=== PATIENT | male | born 1970 | race Caucasian/White ===

== ENCOUNTER 2022-12-18 10:56 | Outpatient (OUT) | payer MEDICAID, SELFPAY | END 2022-12-18 10:57 | LOC: WC 10:56 | PROVIDERS: PCP Family Medicine; Visit Provider Podiatrist Foot & Ankle Surgery | DX: T87.89 Other complications of amputation stump (principal) | CPT/HCPCS: 99212; G0463 ==

== ENCOUNTER 2022-12-24 11:28 | Outpatient (OUT) | payer MEDICAID, SELFPAY | END 2022-12-24 11:29 | LOC: WC 11:28 | PROVIDERS: PCP Family Medicine; Visit Provider Podiatrist Foot & Ankle Surgery | DX: T87.89 Other complications of amputation stump (principal) | CPT/HCPCS: 99212; A6213; G0463 ==

== ENCOUNTER 2023-01-15 10:54 | Outpatient (OUT) | payer MEDICAID, SELFPAY ==
--- NOTE | 2023-01-15 11:09 | XR_ITS ---
The [address] [address] Patient Name: FELISHA HAWKINS MRN: [id number] date: 1970 Sex: M Assigned Patient Location: Current Patient Location: Accession/Order Number: [id number] Exam Date: 01/15/2023 11:09 Report Date: 01/15/2023 14:33 At the request of: RODNEY PEREZ Procedure: XR foot LT min 3V EXAM: XR foot LT min 3V HISTORY: LEFT FOOT PAIN COMPARISON: 12/02/2022. TECHNIQUE: 3 views left foot. 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 There is overlying residual mild edema. New periosteal reaction and ill-defined margin of the stump raises concern for osteomyelitis. There is also interval destruction of second metatarsal head, third metatarsal head and third proximal phalanx base and the fourth proximal phalanx base concerning for osteomyelitis. In particular there is collapse and pathologic fracture of the second metatarsal head and neck region and the third proximal phalanx base. There is interval albeit subacute appearing deformity at the second metatarsal base, TMT joint. No other acute bony process. Moderate to severe degenerative change of the midfoot may be increased with slight increased pes planus. No radiopaque foreign body. IMPRESSION: Concern for interval multifocal osteomyelitis with bone destruction. Also new but subacute appearing deformity at the second TMT joint. Recommend MRI of the left midfoot, forefoot and digits. Electronically authenticated by: BRIAN ROWAN Date: 01/15/2023 14:33
== END 2023-01-15 10:55 | disposition home or self-care (01) ==
LOC: WC 10:54
PROVIDERS: PCP Family Medicine; Visit Provider Podiatrist Foot & Ankle Surgery
DX: M79.672 Pain in left foot (principal); M21.6X2 Other acquired deformities of left foot; M86.472 Chronic osteomyelitis with draining sinus, left ankle and foot; S90.822A Blister (nonthermal), left foot, initial encounter; E11.621 Type 2 diabetes mellitus with foot ulcer; E11.40 Type 2 diabetes mellitus with diabetic neuropathy, unspecified; E11.69 Type 2 diabetes mellitus with other specified complication
CPT/HCPCS: 73630; G0463

== ENCOUNTER 2023-02-09 13:29 | Outpatient (OUT) | payer MEDICAID, SELFPAY ==
--- NOTE | 2023-02-09 13:31 | XR_ITS ---
The [address] [address] Patient Name: FELISHA HAWKINS MRN: [id number] date: 1970 Sex: M Assigned Patient Location: Current Patient Location: Accession/Order Number: [id number] Exam Date: 02/09/2023 13:31 Report Date: 02/09/2023 18:42 At the request of: RODNEY PEREZ Procedure: XR foot LT min 3V PROCEDURE: XR foot LT min 3V COMPARISON: 01/15/2023 HISTORY: LEFT FOOT PAIN FINDINGS: BONES:Stable amputation proximal diaphysis of the first metatarsal. Change in appearance of the base of the second and third metatarsals suspicious for fracture. Lytic change with periosteal reaction head of the second metatarsal. Lytic changes head of the third metatarsal and base of the third and fourth proximal phalanges. SOFT TISSUES:Diffuse soft tissue swelling EFFUSION:None visible. OTHER: Negative. XR/XR foot LT min 3V IMPRESSION: Lytic changes and fractures of multiple bones as detailed above. Post traumatic change versus osteomyelitis, clinically correlate Electronically authenticated by: KYE MCINTOSH Date: 02/09/2023 18:42
== END 2023-02-09 13:30 | disposition home or self-care (01) ==
LOC: WC 13:29
PROVIDERS: PCP Family Medicine; Visit Provider Podiatrist Foot & Ankle Surgery
DX: M79.672 Pain in left foot (principal); T87.89 Other complications of amputation stump; S92.322A Displaced fracture of second metatarsal bone, left foot, initial encounter for closed fracture; S92.512A Displaced fracture of proximal phalanx of left lesser toe(s), initial encounter for closed fracture
CPT/HCPCS: 73630; G0463

== ENCOUNTER 2023-05-11 09:18 | Outpatient (OUT) | payer MEDICAID, SELFPAY ==
--- NOTE | 2023-05-11 09:28 | XR_ITS ---
The [address] [address] Patient Name: FELISHA HAWKINS MRN: [id number] date: 1970 Sex: M Assigned Patient Location: LAB Current Patient Location: Accession/Order Number: [id number] Exam Date: 05/11/2023 09:32 Report Date: 05/12/2023 08:32 At the request of: JAVIER LUCAS Procedure: XR bone leg length PROCEDURE: XR bone leg length COMPARISON: None. HISTORY: Peripheral Artery Disease I73.9 FINDINGS: BONES: Mild degenerative changes. Slight pelvic tilt with the right pelvis 1 cm higher than the left pelvis. Remote left ACL repair The right leg is 841 mm from the cranial femoral head to the tibial plafond The left leg is 839 mm from the cranial femoral head to the tibial plafond SOFT TISSUES:Negative. No visible soft tissue swelling. EFFUSION:None visible. OTHER: Negative. XR/XR bone leg length IMPRESSION: The legs are equal in length 1 cm pelvic tilt higher on the right Electronically authenticated by: KYE MCINTOSH Date: 05/12/2023 08:32
== END 2023-05-11 09:19 | disposition home or self-care (01) ==
LOC: LAB 09:19
PROVIDERS: PCP Family Medicine; Visit Provider Family Medicine
DX: I73.9 Peripheral vascular disease, unspecified (principal)
CPT/HCPCS: 77073

== ENCOUNTER 2023-10-29 10:45 | Outpatient (OUT) | payer MEDICAID, SELFPAY ==
--- NOTE | 2023-10-29 10:48 | US_ITS ---
The [address] [address] Patient Name: FELISHA HAWKINS MRN: [id number] date: 1970 Sex: M Assigned Patient Location: US Current Patient Location: Accession/Order Number: [id number] Exam Date: 10/29/2023 10:52 Report Date: 10/31/2023 05:03 At the request of: JAVIER LUCAS Procedure: US renal bladder EXAMINATION: US renal bladder HISTORY: Bladder Outlet Obstruction N32.0 COMPARISON: No relevant comparison available. TECHNIQUE: Ultrasound examination was performed of the kidneys and urinary bladder. FINDINGS: RIGHT KIDNEY: No evidence of pelvocaliectasis, mass, or calculi. Normal renal cortical parenchymal echogenicity. Color Doppler demonstrates blood flow within the kidney. Kidney: 10.3 x 4.9 x 6.3 cm LEFT KIDNEY: No evidence of pelvocaliectasis, mass, or calculi. Normal renal cortical parenchymal echogenicity. Color Doppler demonstrates blood flow within the kidney. Kidney: 10.9 x 4.5 x 5.7 cm BLADDER: No visible wall thickening, mass, or calculi. Post void residual: 67 mL URETERAL JETS: Visualized bilaterally. US/US renal bladder IMPRESSION: 1. Post void residual with urinary bladder, 67 mL. 2. Otherwise normal ultrasound appearance of the kidneys and urinary bladder. Electronically authenticated by: RENITA VERDIN Date: 10/31/2023 05:03
--- OUTSIDE RECORDS SUMMARY | 2023-10-29 11:09 | XMS_ITS | CCD ---
Author Organization [facility] Care Team Providers Care Health Information Coder Name Role Phone JULIETTE RAMOS Unavailable Unava ilable KRYSTEN, RUGEN M Unavailable Unavailable Bertram, Rugen M Unavailable Unavailable Maronian, Xochitl C Unavailable Unavailable Timmis, Crissy H Unavailable Unavailable Kimani Xochitl Unavailable Unavailable Jesus Lucas Primary Care Physician [phone] MD Jesus Lucas Primary Care Provider [phone] MD Jesus Lucas Attending Provider RODNEY PEREZ Attending Unavailable RODNEY PEREZ Admitting Unavailable HOCarol ., DR HERRERA Primary Care Unavailable ARNALDO, DR KYE Elizabeth Consulting Unavailable RODNEY PEREZ Consulting Unavailable BETH ., CHANO WHITTAKER Consulting Unavailable MIGUEL ANGEL II, KYAW Consulting Unavailable ELODIA BRAVO Consulting Unavailable RODNEY PEREZ Consulting Unavailable LANCE ., DR HERRERA Primary Care Unavailable RODNEY PEREZ Attending Unavailable RODNEY PEREZ Admitting Unavailable BETH .CHANO Consulting Unavailable HIMANSHU RAMIREZ Consulting Unavailable KENJI BUSTOS Consulting Unavailable LANCE Horan, DR HERRERA Primary Care Unavailable NILL ., DR COWAN Consulting Unavailable NILL ., DR COWAN Attending Unavailable NILL ., DR COWAN Admitting Unavailable HIGHLANDERRODNEY Attending Unavailable HIGHLANDER, PETER D Admitting Unavailable HIGHLANDER, PETER D Consulting Unavailable LANCE ., DR HERRERA Primary Care Unavailable LANCE ., DR HERRERA Primary Care Unavailable RODNEY PEREZ Attending Unavailable RODNEY PEREZ Admitting Unavailable HOY ., DR HERRERA Primary Care Unavailable ARAM CRANDALL Attending Unavailable ARAM CRANDALL Admitting Unavailable HOCarol ., DR HERRERA Admitting Unavailable HOCarol ., DR HERRERA Consulting Unavailable HOCarol ., DR HERRERA Attending Unavailable HOY ., DR EHRRERA Primary Care Unavailable WEST, DR KYE Elizabeth Consulting Unavailable HIGHLANDER, PETER D Attending Unavailable HIGHLANDER, PETER D Admitting Unavailable HIGHLANDER, PETER D Consulting Unavailable HOY ., DR HERRERA Primary Care Unavailable HOY ., DR HERRERA Primary Care Unavailable WEST, DR KYE Elizabeth Consulting Unavailable HIGHLANDER, PETER D Attending Unavailable HIGHLANDER, PETER D Admitting Unavailable HIGHLANDER, PETER D Consulting Unavailable READERJESUS Consulting Unavailable HIGHLANDER, PETER D Consulting Unavailable HIGHLANDER, PETER D Attending Unavailable HOY ., DR HERRERA Primary Care Unavailable HIGHLANDER, PETER D Admitting Unavailable HIGHLANDER, PETER D Consulting Unavailable HOY ., DR HERRERA Primary Care Unavailable HIGHLANDER, PETER D Attending Unavailable HIGHLANDER, PETER D Admitting Unavailable HOY ., DR HERRERA Admitting Unavailable HOY ., DR HERRERA Attending Unavailable HOY ., DR HERRERA Primary Care Unavailable HOY ., DR HERRERA Primary Care Unavailable HOY ., DR HERRERA Admitting Unavailable HOY ., DR HERRERA Consulting Unavailable HOY ., DR HERRERA Attending Unavailable ZIEBER, DR RENITA Joyner Consulting Unavailable HOY ., DR HERRERA Primary Care Unavailable HOY ., DR HERRERA Admitting Unavailable HOY ., DR HERRERA Consulting Unavailable HOY ., DR HERRERA Attending Unavailable WEST, DR KYE Elizabeth Consulting Unavailable HOY ., DR HERRERA Primary Care Unavailable HIGHLANDER, PETER D Attending Unavailable HIGHLANDER, PETER D Admitting Unavailable HOY ., DR HERRERA Primary Care Unavailable HIGHLANDER, PETER D Attending Unavailable HIGHLANDER, PETER D Admitting Unavailable HIGHLANDER, PETER D Attending Unavailable HOY ., DR HERRERA Primary Care Unavailable HIGHLANDER, PETER D Admitting Unavailable HIGHLANDER, PETER D Attending Unavailable HIGHLANDER, PETER D Admitting Unavailable HOY ., DR HERRERA Primary Care Unavailable HIGHLANDER, PETER D Attending Unavailable HOY ., DR HERRERA Primary Care Unavailable HIGHLANDER, PETER D Admitting Unavailable HIGHLANDER, PETER D Attending Unavailable HOY ., DR HERRERA Primary Care Unavailable HIGHLANDER, PETER D Admitting Unavailable HIGHLANDER, PETER D Attending Unavailable HOY ., DR HERRERA Primary Care Unavailable HIGHLANDER, PETER D Admitting Unavailable HIGHLANDER, PETER D Attending Unavailable HOY ., DR HERRERA Primary Care Unavailable HIGHLANDER, PETER D Admitting Unavailable HOY ., DR HERRERA Primary Care Unavailable HIGHLANDER, PETER D Admitting Unavailable HIGHLANDER, PETER D Attending Unavailable HIGHLANDER, PETER D Attending Unavailable HIGHLANDER, PETER D Admitting Unavailable HOY ., DR HERRERA Primary Care Unavailable HIGHLANDER, PETER D Attending Unavailable HOY ., DR HERRERA Primary Care Unavailable KAMEBER, DR RENITA Joyner Consulting Unavailable HIGHLANDER, PETER D Admitting Unavailable HIGHLANDER, PETER D Consulting Unavailable HIGHLANDER, PETER D Attending Unavailable HOY ., DR HERRERA Primary Care Unavailable HIGHLANDER, PETER D Admitting Unavailable HIGHLANDER, PETER D Attending Unavailable HOY ., DR HERRERA Primary Care Unavailable HIGHLANDER, PETER D Admitting Unavailable HIGHLANDER, PETER D Attending Unavailable HOY ., DR HERRERA Primary Care Unavailable HIGHLANDER, PETER D Admitting Unavailable HIGHLANDER, PETER D Admitting Unavailable HIGHLANDER, PETER D Attending Unavailable HOY ., DR HERRERA Primary Care Unavailable HOY ., DR HERRERA Primary Care Unavailable HIGHLANDER, PETER D Admitting Unavailable HIGHLANDER, PETER D Attending Unavailable HOY ., DR HERRERA Primary Care Unavailable HIGHLANDER, PETER D Attending Unavailable HIGHLANDER, PETER D Admitting Unavailable HOY ., DR HERRERA Primary Care Unavailable HIGHLANDER, PETER D Admitting Unavailable HIGHLANDER, PETER D Attending Unavailable HOY ., DR HERRERA Primary Care Unavailable HIGHLANDER, PETER D Admitting Unavailable HIGHLANDER, PETER D Attending Unavailable HOY ., DR HERRERA Primary Care Unavailable HIGHLANDER, PETER D Attending Unavailable ZIEBER, DR RENITA Joyner Consulting Unavailable HIGHLANDER, PETER D Admitting Unavailable HIGHLANDER, PETER D Consulting Unavailable HOY ., DR HERRERA Primary Care Unavailable HIGHLANDER, PETER D Attending Unavailable HIGHLANDER, PETER D Admitting Unavailable HOY ., DR HERRERA Primary Care Unavailable HIGHLANDER, PETER D Attending Unavailable HIGHLANDER, PETER D Admitting Unavailable HIGHLANDER, PETER D Admitting Unavailable HIGHLANDER, PETER D Attending Unavailable HOY ., DR HERRERA Primary Care Unavailable HIGHLANDER, PETER D Admitting Unavailable HIGHLANDER, PETER D Attending Unavailable HOY ., DR HERRERA Primary Care Unavailable HIGHLANDER, PETER D Admitting Unavailable HIGHLANDER, PETER D Attending Unavailable HOY ., DR HERRERA Primary Care Unavailable HIGHLANDER, PETER D Admitting Unavailable HIGHLANDER, PETER D Attending Unavailable HOY ., DR HERRERA Primary Care Unavailable HOY ., DR HERRERA Admitting Unavailable HOY ., DR HERRERA Consulting Unavailable HOY ., DR HERRERA Attending Unavailable HOY ., DR HERRERA Primary Care Unavailable ZIEBER, DR RENITA Joyner Consulting Unavailable HOY ., DR HERRERA Admitting Unavailable HOY ., DR HERRERA Consulting Unavailable HOY ., DR HERRERA Attending Unavailable HOY ., DR HERRERA Primary Care Unavailable ZIEBER, DR RENITA Joyner Consulting Unavailable HIGHLANDER, PETER D Admitting Unavailable HIGHLANDER, PETER D Attending Unavailable HOY ., DR HERRERA Primary Care Unavailable ZIEBER, DR RENITA Joyner Consulting Unavailable HIGHLANDER, PETER D Consulting Unavailable HOY ., DR HERRERA Primary Care Unavailable HIGHLANDER, PETER D Admitting Unavailable HIGHLANDER, PETER D Attending Unavailable HIGHLANDER, PETER D Attending Unavailable HOY ., DR HERRERA Primary Care Unavailable HIGHLANDER, PETER D Admitting Unavailable HIGHLANDER, PETER D Attending Unavailable HOY ., DR HERRERA Primary Care Unavailable HIGHLANDER, PETER D Admitting Unavailable HOY ., DR HERRERA Primary Care Unavailable NILL ., DR COWAN Attending Unavailable NILL ., DR COWAN Admitting Unavailable NILL ., DR COWAN Consulting Unavailable AGUBOSIM, DAVID Consulting Unavailable ABDULLAHI, NICK Consulting Unavailable HOY ., DR HERRERA Primary Care Unavailable MISC, DR ZAMORA Attending Unavailable MISC, DR ZAMORA Admitting Unavailable HIGHLANDER, PETER D Consulting Unavailable HIGHLANDER, PETER D Attending Unavailable HIGHLANDER, PETER D Admitting Unavailable HOY ., DR HERRERA Primary Care Unavailable RAZ, ARAM Admitting Unavailable RAZ, ARAM Consulting Unavailable RAZ, ARAM Attending Unavailable HOY ., DR HERRERA Primary Care Unavailable HIGHLANDER, PETER D Attending Unavailable HOY ., DR HERRERA Primary Care Unavailable HIGHLANDER, PETER D Admitting Unavailable HOY ., DR HERRERA Primary Care Unavailable RAZ, ARAM Admitting Unavailable RAZ, ARAM Attending Unavailable HOY ., DR HERRERA Primary Care Unavailable HIGHLANDER, PETER D Attending Unavailable HIGHLANDER, PETER D Admitting Unavailable HOY ., DR HERRERA Primary Care Unavailable HIGHLANDER, PETER D Attending Unavailable HIGHLANDER, PETER D Admitting Unavailable CRISTIAN, JUANJOSE Referring Unavailable CRISTIAN, JUANJOSE Attending Unavailable CRISTIAN, JUANJOSE Attending Unavailable CRISTIAN, JUANJOSE Attending Unavailable CRISTIAN, JUANJOSE Attending Unavailable Jesus Lucas Attending Unavailable Jesus Lucas Primary Care Unavailable Jesus Lucas Admitting Unavailable MD Jesus Lucas Primary Care Provider [phone] MD Jesus Lucas Attending Provider ROGERIO RAWLS Attending Unavailable ROGERIO RAWLS Attending Unavailable Medications Current Medications Medication Drug Class(es) Dates Sig (Normalized) Sig (Original) alprostadil 0.5 mg urethral suppository (1 source) Prostaglandin Analog, Prostaglandin E1 Agonist Start: 12-30-2021 [place] 500 mcg transurethral suppository See Instructions, Use as needed will be shown IO by MD, # 2 supp, Refills(s) 0, Pharmacy: [facility]/pharmacy #[id number], 184, cm, 12/30/21 8:26:00 EDT, Height/Length Dosing, 105, kg, 12/30/21 8:26:00 EDT, Weight Dosing Start Date: 12/30/21 Status: Ordered atorvastatin 40 mg oral tablet (3 sources) HMG-CoA Reductase Inhibitor Start: 11-14-2021 take 1 tablet by mouth once daily atorvastatin 40 mg Tab 40 mg = 1 tab(s), Oral, Daily, Refills(s) 0 Start Date: 11/14/21 Status: Ordered cetirizine hydrochloride 10 mg oral tablet (3 sources) Histamine-1 Receptor Antagonist Start: 11-14-2021 take 2 tablets by mouth once daily cetirizine 10 mg Tab 20 mg = 2 tab(s), Oral, Daily, Refills(s) 0 Start Date: 11/14/21 Status: Ordered clonazePAM 1 mg oral tablet (5 sources) Benzodiazepine Start: 11-14-2021 take 2 tablets by mouth once daily at bedtime clonazepam 1 mg Tab 2 mg = 2 tab(s), Oral, Once a day (at bedtime), Refills(s) 0 Start Date: 11/14/21 Status: Ordered KlonoPIN 0.5 MG Oral Tablet Refills: 0 DO Active empagliflozin 25 mg oral tablet (3 sources) Sodium-Glucose Cotransporter 2 Inhibitor Start: 11-14-2021 take 1 tablet by mouth once daily in the morning Jardiance 25 mg oral tablet 25 mg = 1 tab(s), Oral, qAM, Refills(s) 0 Start Date: 11/14/21 Status: Ordered furosemide 20 mg oral tablet (3 sources) Loop Diuretic Start: 11-14-2021 take 1 tablet by mouth once daily Lasix 20 mg Tab 20 mg = 1 tab(s), Oral, Daily, Refills(s) 0 Start Date: 11/14/21 Status: Ordered Levemir FlexTouch (3 sources) Start: 11-14-2021 Levemir FlexTouch Refills(s) 0 Start Date: 11/14/21 Status: Ordered Victoza (3 sources) GLP-1 Receptor Agonist Start: 11-14-2021 inject 1.2 mg by subcutaneous injection once daily Victoza 1.2 mg, SubCutaneous, Daily, Refills(s) 0 Start Date: 11/14/21 Status: Ordered lisinopril 40 mg oral tablet (5 sources) Angiotensin Converting Enzyme Inhibitor Start: 11-14-2021 take 1 tablet by mouth once daily lisinopril 40 mg Tab 40 mg = 1 tab(s), Oral, Daily, Refills(s) 0 Start Date: 11/14/21 Status: Ordered Lisinopril 20 MG Oral Tablet Refills: 0 DO Active Melatonin (3 sources) Start: 11-14-2021 melatonin Refi lls(s) 0 Start Date: 11/14/21 Status: Ordered metFORMIN hydrochloride 1000 mg oral tablet (5 sources) Biguanide Start: 11-14-2021 metformin 1000 mg oral tablet Refills(s) 0 Start Date: 11/14/21 Status: Ordered Start: 04-15-2017 metFORMIN HCl - 500 MG Oral Tablet Quantity: 60 Refills: 0 DO Start : 15-Apr-2017 Active metoprolol tartrate 100 mg oral tablet (5 sources) beta-Adrenergic Kimberly Start: 11-14-2021 take 1 tablet by mouth twice daily metoprolol tartrate 100 mg Tab 100 mg = 1 tab(s), Oral, BID, Refills(s) 0 Start Date: 11/14/21 Status: Ordered Metoprolol Tartr ate 100 MG Oral Tablet Refills: 0 DO Active NovoLog FlexPen (3 sources) Start: 11-14-2021 NovoLog FlexPen 60 unit(s), SubCutaneous, BIDAC, Refills(s) 0 Start Date: 11/14/21 Status: Ordered pregabalin 300 mg oral capsule (3 sources) Start: 11-14-2021 take 1 capsule by mouth twice daily pregabalin 300 mg Cap 300 mg = 1 cap(s), Oral, BID, Refills(s) 0 Start Date: 11/14/21 Status: Ordered tiZANidine 4 mg oral tablet (3 sources) Central alpha-2 Adrenergic Agonist Start: 11-14-2021 take 1 tablet by mouth once daily tiZANidine 4 mg Tab 4 mg = 1 tab(s), Oral, Daily, Refills(s) 0 Start Date: 11/14/21 Status: Ordered vardenafil 20 mg oral tablet (1 source) Phosphodiesterase 5 Inhibitor Start: 12-02-2021 take 1 tablet by mouth once daily as needed Levitra 20 mg Tab 20 mg = 1 tab(s), Oral, Daily, PRN for erectile dysfunction, # 30 tab(s), Refills(s) 1, Pharmacy: [facility]/pharmacy #[id number], 184, cm, 12/02/21 8:23:00 EDT, Height/Length Dosing, 105, kg, 12/02/21 8:23:00 EDT, Weight Dosing Start Date: 12/02/21 Status: Ordered Completed/Discontinued Medications Medication Drug Class(es) Dates Sig (Normalized) Sig (Original) ertugliflozin 15 mg oral tablet (2 sources) Steglatro 15 MG Oral Tablet Refills: 0 DO Active Claritin CAPS (2 sources) Claritin CAPS Re fills: 0 DO Active Claritin CAPS Re fills: 0 Active meclizine hydrochloride 12.5 mg oral tablet (2 sources) Antiemetic Meclizine HCl - 12.5 MG Oral Tablet Refills: 0 DO Active OneTouch Ultra 2 w/Device Ki t (2 sources) Start: 12-13-2018 OneTouch Ultra 2 w/Device Kit Quantity: 1 Refills: 0 DO Start : 13-Dec-2018 Active Start: 12-13-2018 OneTouch Ultra 2 w/Device Kit Quantity: 1 Refills: 0 Start : 13-Dec-2018 Active raNITIdine 150 mg oral tablet (2 sources) Histamine-2 Receptor Antagonist Acid Main Line Assembler 150 MG Oral Tablet Refills: 0 DO Active sildenafil 100 mg oral tablet (2 sources) Phosphodiesterase 5 Inhibitor Start: 01-28-20 take 1 tablet by mouth once daily as needed Sildenafil Citrate 100 MG Oral Tablet TAKE 1 TABLET BY MOUTH EVERY DAY NEEDED Quantity: 5 Refills: 0 DO Start : 27-Jan-2018 Active SITagliptin 100 mg oral tablet (2 sources) Dipeptidyl Peptidase 4 Inhibitor Start: 04-01-20 17 Januvia 100 MG Oral Tablet Refills: 0 DO Start : 01-Apr-2017 Active 30 actuat umeclidinium 0.0625 mg/actuat / vilanterol 0.025 mg/actuat dry powder inhaler (2 sources) Anticholinergic, beta2-Adrenergic Agonist Anoro Ellipta 62.5-25 MCG/INH Inhalation Aerosol Powder Breath Activated Refills: 0 DO Active Problems Active Problems Problem Classification Problem Date Documented Da te Episodic/Chronic Chronic ulcer of skin (8 sources) 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; Translations: [Non-pressure chronic ulcer of left heel and midfoot with necrosis of bone] Onset: 03-31-2022 Chronic Coronary atherosclerosis and other heart disease (1 source) Old myocardial infarction; Translations: [OLD MYOCARDIAL INFARCTION] Onset: 08-28-2022 Chronic Diabetes mellitus with complications (20 sources) Type 2 diabetes mellitus with foot ulcer; Translations: [Type 2 diabetes mellitus with diabetic neuropathy, unspecified] Onset: 04-24-2022 Chronic Diabetes mellitus without complication (7 sources) Diabetes mellitus; Translations: [Type 2 diabetes mellitus without complication] Onset: 12-02-2021 11-14-2021 Chronic Disorders of lipid metabolism (4 sources) Hypercholesterolemia ; Translations: [Pure hypercholesterolemia , unspecified] Onset: 01-02-2022 11-14-2021 Chronic Essential hypertension (5 sources) Hypertensive disorder; Translations: [Essential hypertension] Onset: 12-02-2021 11-14-2021 Chronic Genitourinary symptoms and ill-defined conditions (4 sources) Nocturia; Translations: [Nocturia] Onset: 12-02-2021 Episodic Infective arthritis and osteomyelitis (except that caused by tuberculosis or sexually transmitted disease) (13 sources) Other chronic osteomyelitis, unspecified site; Translations: [Chronic osteomyelitis with draining sinus, left ankle and foot] Onset: 07-14-2022 Chronic Other connective tissue disease (5 sources) Pain in left foot; Translations: [PAIN IN LEFT FOOT] Onset: 03-30-2022 Episodic Other male genital disorders (4 sources) Secondary erectile dysfunction; Translations: [Erectile dysfunction due to diseases classified elsewhere] Onset: 12-02-2021 Chronic Other nervous system disorders (2 sources) Unspecified abnormalities of gait and mobility; Translations: [Unspecified abnormalities of gait and mobility] Onset: 02-22-2023 Episodic Other nutritional; endocrine; and metabolic disorders (3 sources) Body mass index 30+ - obesity 11-18-2021 Chronic Other upper respiratory disease (5 sources) Stenosis of trachea; 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] 11-14-2021 Episodic Residual codes; unclassified (3 sources) Insomnia 11-14-2021 Episodic Superficial injury; contusion (3 sources) Blister (nonthermal), left foot, initial encounter; Translations: [Blister (nonthermal), left foot, sequela] Onset: 07-08-2022 Episodic Unclassified (5 sources) Patient encounter status; Translations: [Pre-op testing] 11-18-2021 Unclassified (1 source) CONTACT W/AND (SUSP) EXPOS COVID-19; Translations: [CONTACT W/AND (SUSP) EXPOS COVID-19] Onset: 08-12-2022 Unclassified (2 sources) Consult; Translations: [Consult] Onset: 05-18-2022 Unclassified (1 source) Pain in left ankle and joints of left foot; Translations: [Pain in left ankle and joints of left foot] Onset: 07-15-2023 Past or Other Problems Problem Classification Problem Date Documented Da te Episodic/Chronic Acquired foot deformities (7 sources) Foot drop, right foot; Translations: [FOOT DROP RIGHT FOOT] Onset: 03-30-2022 Episodic Bacterial infection; unspecified site (1 source) Other specified bacterial agents as the cause of diseases classified elsewhere; Translations: [OTH SPEC BACTERIAL DZ CLASS ELSW] Onset: 06-20-2022 Episodic Intracranial injury (2 sources) Personal history of traumatic brain injury; Translations: [History of traumatic brain injury] Episodic Open wounds of extremities (5 sources) Unspecified open wound, left foot, initial encounter; Translations: [Unspecified open wound, unspecified lower leg, initial encounter] Onset: 04-29-2022 Episodic Other aftercare (1 source) 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; Translations: [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] Onset: 08-25-2022 Episodic Other aftercare (1 source) halfway (current) use of oral hypoglycemic drugs; Translations: [BUILDING SURVEYOR USE ORAL HYPOGLYCEMIC DX] Onset: 08-25-2022 Episodic Other circulatory disease (2 sources) H/O: hypertension; Translations: [History of hypertension] Episodic Other connective tissue disease (4 sources) Pain in right lower leg; Translations: [PAIN IN RIGHT LOWER LEG] Onset: 03-18-2022 Episodic Other connective tissue disease (3 sources) Pain in unspecified limb; Translations: [PAIN IN UNSPECIFIED LIMB] Onset: 03-26-2022 Episodic Other connective tissue disease (2 sources) Other symptoms and signs involving the musculoskeletal system; Translations: [Other symptoms and signs involving the musculoskeletal system] Onset: 07-20-2022 Episodic Other fractures (2 sources) Collapsed vertebra, not elsewhere classified, cervical region, subsequent encounter for fracture with routine healing; Translations: [Wedge compression fracture of unspecified thoracic vertebra, subsequent encounter for fracture with routine healing] Onset: 03-10-2017 Episodic Other gastrointestinal disorders (2 sources) Oropharyngeal dysphagia; Translations: [Dysphagia, oropharyngeal phase] Episodic Other lower respiratory disease (2 sources) Respiratory obstruction; Translations: [Airway obstruction] Episodic Other nutritional; endocrine; and metabolic disorders (2 sources) H/O: diabetes mellitus; Translations: [History of diabetes mellitus] Episodic Other screening for suspected conditions (not mental disorders or infectious disease) (5 sources) Screening for malignant neoplasm of colon done; Translations: [Encounter for screening for malignant neoplasm of colon] Onset: 11-18-2021 Episodic Pulmonary heart disease (2 sources) Pulmonary embolism; Translations: [Pulmonary embolus] Episodic Screening and history of mental health and substance abuse codes (2 sources) H/O: depression; Translations: [History of depression] Episodic Skin and subcutaneous tissue infections (1 source) Cellulitis of left lower limb; Translations: [CELLULITIS OF LEFT LOWER LIMB] Onset: 06-20-2022 Episodic Spondylosis; intervertebral disc disorders; other back problems (6 sources) Spinal stenosis of lumbar region; Translations: [Spinal stenosis, lumbar region without neurogenic claudication] Onset: 12-02-2021 11-14-2021 Episodic Unclassified (4 sources) History of clinical finding in subject; Translations: [History of snoring] NEGATED: Highlighted row has not occurred!Residual codes; unclassified (14 sources) Disease Episodic Results Test Name Value Interpretation Reference Range Facility Follow-Upon 02-22-2023 Follow-Up [id number] Sadie Hawkins 1970 M Date Provider Department Center 02/22/2023 Buffy-ARMAAN [facility] [place] Family History Problem Relation Age of Onset Cancer Mother Heart attack Father Family Status - Relation Status Age at Mother Father Level of Service:55094 MS OFFICE/OUTPATIENT ESTABLISHED LOW MDM 20-29 MIN Reason for Visit and Comments: Follow-up [807394] - Pt is here for a 3 month follow up for Right Foot Drop, s/p PT. Normal [facility] CULTURE OTHERon 12-06-2022 CULTURE OTHER Culture Observations : IN PROCESS. Isolate 1 Pseudomonas aeruginosa Light growth of ORGANISM 1 Pseudomonas aeruginosa ANTIBIOTIC M.I.C RX STATUS Piperacillin/Tazobactam 8 S F Ceftazidime 4 S F Imipenem 2 S F Amikacin <=2 S F Gentamicin <=1 S F Tobramycin <=1 S F Ciprofloxacin <=0.25 S F Levofloxacin 1 S F Normal [facility] Comment on above: Performed By: #### C BC #### [facility] [address] [place] [address] Dr. Kevin Vale ACID FAST SMEAR AND CXon Acid Fast Smear Negative Normal [facility] Comment on above: Performed By: #### A FB #### [facility] [address] [place] [address] Dr. Kevin Vale AF[employer] Specimen Processing Tissue Grinding Normal [facility] Comment on above: Performed By: #### A FB #### [facility] [address] [place] [address] Dr. Kevin Vale FUNGAL CULTUREon 12-03-2022 Fungus Stain Final report Normal [facility] Comment on above: Performed By: #### C XFUN #### [facility] [address] [place] [address] Dr. Kevin Vale Result 1 Comment Normal [facility] Comment on above: Result Comment: CARL/ Calcofluor preparation: no fungus observed. Performed By: #### C XFUN #### [facility] [address] [place] [address] Dr. Kevin Vale CULTURE ANAEROBICon 12-03-19 23 CULTURE ANAEROBIC Culture Observations : NO GROWTH AT 72 HRS. Normal [facility] Comment on above: Performed By: #### C BC #### [facility] [address] [address] [address] Kevin ECHOLS STAINon 12-02-2022 COMMENTS NO ORGANISMS OBSERVED Normal [facility] Comment on above: Performed By: #### G STAIN #### [facility] [address] [address] [address] Kevin Vale DIPHTHEROIDS Normal [facility] Comment on above: Performed By: #### G STAIN #### [facility] [address] [address] [address] Kevin Vale EPITHELIALS Normal [facility] Comment on above: Performed By: #### G STAIN #### [facility] [facility] [address] [place] [address] Dr. Kevin Vale FUNGAL ELEMENTS Normal [facility] Comment on above: Performed By: #### G STAIN #### [facility] [address] [place] [address] Dr. Kevin ECHOLS NEG BACILLI Normal [facility] Comment on above: Performed By: #### G STAIN #### [facility] [address] [place] [address] Dr. Kevin ECHOLS NEG DIPPLOCOCCI Normal [facility] Comment on above: Performed By: #### G STAIN #### [facility] [address] [place] [address] Dr. Kevin ECHOLS POS BACILLI Normal [facility] [place] [facility] Comment on above: Performed By: #### G STAIN #### [facility] [address] [place] [address] Dr. Kevin Vale GRAM POSITIVE COCCI Normal [facility] Comment on above: Performed By: #### G STAIN #### [facility] [address] [place] [address] Dr. Kevin Vale GRAM STAIN SOURCE Lt First Metatarsal Normal [facility] Comment on above: Performed By: #### G STAIN #### [facility] [address] [place] [address] Dr. Kevin Vale GS_DIPTH Normal [facility] Comment on above: Performed By: #### G STAIN #### [facility] [address] [place] [address] Dr. Kevin Vale WBC RARE Normal [facility] Comment on above: Performed By: #### G STAIN #### [facility] [address] [place] [address] Dr. Kevin Vale POINT OF CARE GLUCOSEon 11-10 Glucose [Mass/Vol] 132 mg/dL Critically high 74-106 T [facility] Comment on above: Performed By: #### G STAIN #### [facility] [address] [place] [address] Dr. Kevin Vale CBC AUTO DIFFon 11-12-2022 BASO # 0.1 103/ul Normal 0.0-0.1 [facility] Comment on above: Performed By: #### C BC #### [facility] [address] [place] [address] Dr. Kevin Vale Basophils/100 WBC (Bld) 0.6 % Normal 0.2-2.0 [facility] Comment on above: Performed By: #### C BC #### [facility] [address] [place] [address] Dr. Kevin Vale EO # 0.4 103/ul Normal 0.0-0.7 [facility] Comment on above: Performed By: #### C BC #### [facility] [address] [place] [address] Dr. Kevin Vale Eosinophils/100 WBC (Bld) 3.4 % Normal 0.9-7.0 [facility] Comment on above: Performed By: #### C BC #### [facility] [address] [place] [address] Dr. Kevin Vale Erythrocyte distribution width (RBC) [Ratio] 15.1 % Critically high 11.0-15.0 [facility] Comment on above: Performed By: #### C BC #### [facility] [address] [place] [address] Dr. Kevin Vale Hematocrit (Bld) [Volume fraction] 38.3 % Critically low 42.0-54.0 [facility] Comment on above: Performed By: #### C BC #### [facility] [address] [address] [address] Kevin Vale Hemoglobin (Bld) [Mass/Vol] 11.8 g/dL Critically low 14.0-18.0 [facility] Comment on above: Performed By: #### C BC #### [facility] [address] [address] [address] Kevin Vale IG # 0.05 10e3/ul Critically high 0.00-0.03 [facility] Comment on above: Performed By: #### C BC #### [facility] [address] [address] [address] Kevin Vale IG % 0.4 % Normal 0.0-0.5 [facility] Comment on above: Performed By: #### C BC #### [facility] [address] [address] [address] Kevin Vale LYMPH # 2.1 103/ul Normal 1.2-3.8 [facility] Comment on above: Performed By: #### C BC #### [facility] [address] [address] [address] Kevin Vale Lymphocytes/100 WBC (Bld) 18.2 % Critically low 20.5-60.0 [facility] Comment on above: Performed By: #### C BC #### [facility] [address] [address] [address] Kevin Vale MANUAL DIFF REQ NO Normal [facility] Comment on above: Performed By: #### C BC #### [facility] [address] [address] [address] Kevin Vale MCH (RBC) [Entitic mass] 27.4 pg Normal 25.9-34.0 [facility] Comment on above: Performed By: #### C BC #### [facility] [address] [address] [address] Kevin Vale MCHC (RBC) [Mass/Vol] 30.8 g/dL Normal 29.9-35.2 [facility] Comment on above: Performed By: #### C BC #### [facility] [address] [address] [address] Kevin Vale MCV (RBC) [Entitic vol] 89.1 fL Normal 80.0-94.0 [facility] Comment on above: Performed By: #### C BC #### [facility] [address] [address] [address] Kevin Vale MONO # 0.8 103/ul Normal 0.3-0.8 [facility] Comment on above: Performed By: #### C BC #### [facility] [address] [address] [address] Kevin Vale Monocytes/100 WBC (Bld) 7.1 % Normal 1.7-12.0 [facility] Comment on above: Performed By: #### C BC #### [facility] [address] [place] [address] Dr. Kevin Vale NEUT # 8.1 103/ul Critically high 1.4-6.5 [facility] Comment on above: Performed By: #### C BC #### [facility] [address] [place] [address] Dr. Kevin Vale Neutrophils/100 WBC (Bld) 70.3 % Normal 43.0-75.0 [facility] Comment on above: Performed By: #### C BC #### [facility] [address] [place] [address] Dr. Kevin Vale Platelet mean volume (Bld) [Entitic vol] 10.1 fL Normal 9.5-13.5 [facility] Comment on above: Performed By: #### C BC #### [facility] [address] [place] [address] Dr. Kevin Vale PLT 352 103/ul Normal 150-450 [facility] Comment on above: Performed By: #### C BC #### [facility] [address] [address] [address] Kevin Vael RBC 4.30 106/ul Critically low 4.70-6.10 [facility] Comment on above: Performed By: #### C BC #### [facility] [address] [address] [address] Kevin Vale WBC 11.5 103/ul Critically high 4.0-11.0 [facility] [place] [facility] Comment on above: Performed By: #### C BC #### [facility] [address] [place] [address] Dr. Kevin Vale CRPon 11-12-2022 CRP 1.9 mg/dL Critically high <=1.0 [facility] Comment on above: Performed By: #### G STAIN #### [facility] [address] [place] [address] Dr. Kevin Vale PROF CHEM 8 (BAS METB)on Anion gap [Moles/Vol] 14.8 mmol/L Normal [facility] Comment on above: Performed By: #### G STAIN #### [facility] [address] [place] [address] Dr. Kevin Vale Calcium [Mass/Vol] 9.5 mg/dL Normal 8.5-10.1 [facility] Comment on above: Performed By: #### G STAIN #### [facility] [address] [place] [address] Dr. Kevin Vale Chloride [Moles/Vol] 100 mmol/L Normal 98-107 [facility] Comment on above: Performed By: #### G STAIN #### [facility] [address] [place] [address] Dr. Kevin Vale CO2 [Moles/Vol] 26.8 mmol/L Normal 21.0-32.0 [facility] Comment on above: Performed By: #### G STAIN #### [facility] [address] [place] [address] Dr. Kevin Vale Creatinine [Mass/Vol] 1.57 mg/dL Critically high 0.70-1.30 [facility] Comment on above: Performed By: #### G STAIN #### [facility] [address] [place] [address] Dr. Kevin Vale EGFR-AF SOUTH AFRICAN 56 mL/min/1.73m2 Critically low >=60 [facility] Comment on above: Performed By: #### G STAIN #### [facility] [address] [place], [place] [address] Dr. Kevin Vale EGFR-NON AF SOUTH AFRICAN 46 mL/min/1.73m2 Critically low >=60 [facility] Comment on above: Performed By: #### G STAIN #### [facility] [address] [address] [address] Kevin Vale Glucose [Mass/Vol] 191 mg/dL Critically high 74-106 T [facility] Comment on above: Performed By: #### G STAIN #### [facility] [address] [address] [address] Kevin Vale Potassium [Moles/Vol] 4.6 mmol/L Normal 3.5-5.1 [facility] Comment on above: Performed By: #### G STAIN #### [facility] [address] [address] [address] Kevin Vale Sodium [Moles/Vol] 137 mmol/L Normal 136-145 [facility] Comment on above: Performed By: #### G STAIN #### [facility] [address] [address] [address] Kevin Vale Urea nitrogen [Mass/Vol] 27.0 mg/dL Critically high 7.0-18.0 [facility] Comment on above: Performed By: #### G STAIN #### [facility] [address] [address] [address] Kevin Vale Urea nitrogen/Creatinin e [Mass ratio] 17.2 mg/mg Normal [facility] Comment on above: Performed By: #### G STAIN #### [facility] [id number] Kevin Vale SED RATE WESTERGRENon 2022 SED RATE 56 mm/hr Critically high <=20 [facility] Comment on above: Performed By: #### S EDR #### [facility] [id number] Kevin Vale Follow-Upon 10-19-2022 Follow-Up [id number] Sadie Hawkins 1970 M Date Provider Department Center 10/19/2022 [id number] RAVI RUST SURG [place] Family History Problem Relation Age of Onset Cancer Mother Heart attack Father Family Status - Relation Status Age at Mother Father Level of Service:82740 MS OFFICE/OUTPATIENT ESTABLISHED LOW MDM 20-29 MIN Reason for Visit and Comments: Follow-up [673422] - Pt is here for a 3 month follow up for drop foot. Normal [facility] Telephoneon 08-14-2022 Telephone [id number] Sadie Hawkins yosef 1970 M Date Provider Department Center 08/14/2022 DiegoSUTTON, SARAH [facility] Family History Problem Relation Age of Onset Cancer Mother Heart attack Father Family Status - Relation Status Age at Mother Father Normal [facility] XR FOOT LT 2Von 08-14-2022 XR FOOT LT 2V EXAM: XR FOOT LT 2V HISTORY: Pain COMPARISON: 04/13/2022 TECHNIQUE: 2 seconds of fluoroscopy. Single image FINDINGS: Single lateral image demonstrates resection of the first metatarsal sesamoids with soft tissue defect IMPRESSION: Images demonstrating first metatarsal sesamoid resection Electronically authenticated by: KYE MCINTOSH Date: 2022-08-14 08:18 Normal [facility] POINT OF CARE GLUCOSEon Glucose [Mass/Vol] 172 mg/dL Critically high 74-106 T [facility] Comment on above: Performed By: #### S EDR #### [facility] [address] [address] [address] Kevin Vale [facility] SARS-CoV-2 (COVID-19) RNA LASHAY+probe Ql (Unsp spec) Not detected Normal NOT DETECTED [facility] Comment on above: Result Comment: This test is not yet approved or cleared by the [place] FDA. When there are no FDA-approved or cleared tests available, and other criteria are met, FDA can make tests available under an emergency access mechanism called an Emergency Use Authorization (EUA). The EUA for this test is supported by the [employer] of Health and Human Service's (HHS's) declaration that circumstances exist to justify the emergency use of in vitro diagnostics for the detection and/or diagnosis of the virus that causes COVID-19. This EUA will remain in effect (meaning this test can be used) for the duration of the COVID-19 declaration justifying emergency of IVDs, unless it is terminated or revoked by FDA (after which the test may no longer be used). When diagnostic testing is negative, the possibility of a false negative should be considered in the context of a patient's recent exposures and the presence of clinical signs and symptoms consistent with SARS-CoV-2. Performed By: #### S EDR #### [facility] [address] [place] [address] Dr. Kevin Vale PROF CHEM 8 (BAS METB)on Anion gap [Moles/Vol] 15.0 mmol/L Normal [facility] Comment on above: Performed By: #### C BC #### [facility] [address] [place] [address] Dr. Kevin Vale Calcium [Mass/Vol] 9.4 mg/dL Normal 8.5-10.1 [facility] Comment on above: Performed By: #### C BC #### [facility] [address] [place] [address] Dr. Kevin Vale Chloride [Moles/Vol] 105 mmol/L Normal 98-107 [facility] Comment on above: Performed By: #### C BC #### [facility] [address] [place] [address] Dr. Kevin Vale CO2 [Moles/Vol] 25.9 mmol/L Normal 21.0-32.0 [facility] [place] [facility] Comment on above: Performed By: #### C BC #### [facility] [address] [place] [address] Dr. Kevin Vale Creatinine [Mass/Vol] 2.17 mg/dL Critically high 0.70-1.30 [facility] Comment on above: Performed By: #### C BC #### [facility] [address] [place] [address] Dr. Kevin Vale EGFR-AF SOUTH AFRICAN 39 mL/min/1.73m2 Critically low >=60 [facility] Comment on above: Performed By: #### C BC #### [facility] [id number] Kevin Vale EGFR-NON AF SOUTH AFRICAN 32 mL/min/1.73m2 Critically low >=60 [facility] Comment on above: Performed By: #### C BC #### [facility] [id number] Kevin Vale Glucose [Mass/Vol] 111 mg/dL Critically high 74-106 T [facility] Comment on above: Performed By: #### C BC #### [facility] [id number] Kevin Vale Potassium [Moles/Vol] 4.9 mmol/L Normal 3.5-5.1 [facility] Comment on above: Performed By: #### C BC #### [facility] [address] [address] [address] Kevin Vale Sodium [Moles/Vol] 141 mmol/L Normal 136-145 [facility] Comment on above: Performed By: #### C BC #### [facility] [address] [address] [address] Kevin Vale Urea nitrogen [Mass/Vol] 45.0 mg/dL Critically high 7.0-18.0 [facility] Comment on above: Performed By: #### C BC #### [facility] [id number] Kevin Vale Urea nitrogen/Creatinin e [Mass ratio] 20.7 mg/mg Normal [facility] Comment on above: Performed By: #### C BC #### [facility] [id number] Kevin Vale CULTURE WOUNDon 07-26-2022 CULTURE WOUND Isolate 1 Streptococcus agalactiae Moderate growth of ORGANISM 1 Streptococcus agalactiae ANTIBIOTIC M.I.C RX STATUS Benzylpenicillin <=0.06 S F Ampicillin <=0.25 S F Cefotaxime <=0.12 S F Ceftriaxone <=0.12 S F Levofloxacin 0.5 S F Inducible Clindamycin Resistance Pos POS F Erythromycin 2 R F Clindamycin <=0.25 R F Linezolid <=2 S F Vancomycin 0.5 S F Tetracycline <=0.25 S F Normal [facility] Comment on above: Performed By: #### W OUNDCX #### [facility] [address] [address] [address] Kevin ECHOLS STAINon 07-24-2022 DIPHTHEROIDS Normal [facility] Comment on above: Performed By: #### G STAIN #### [facility] [address] [address] [address] Kevin Vale EPITHELIALS Normal [facility] Comment on above: Performed By: #### G STAIN #### [facility] [address] [address] [address] Kevin Vale FUNGAL ELEMENTS Normal [facility] Comment on above: Performed By: #### G STAIN #### [facility] [address] [place] [address] Dr. Kevin ECHOLS NEG BACILLI Normal [facility] Comment on above: Performed By: #### G STAIN #### [facility] [address] [address] [address] Kevin ECHOLS NEG DIPPLOCOCCI Normal [facility] Comment on above: Performed By: #### G STAIN #### [facility] [address] [place] [address] Dr. Kevin ECHOLS POS BACILLI Normal [facility] Comment on above: Performed By: #### G STAIN #### [facility] [address] [place] [address] Dr. Kevin Vale GRAM POSITIVE COCCI RARE Normal [facility] Comment on above: Performed By: #### G STAIN #### [facility] [address] [address] [address] Kevin Vale GRAM STAIN SOURCE left plantar foot ulcer Normal [facility] Comment on above: Performed By: #### G STAIN #### [facility] [address] [place] [address] Dr. Kevin Vale GS_DIPTH Normal [facility] Comment on above: Performed By: #### G STAIN #### [facility] [address] [place] [address] Dr. Kevin Vale WBC NONE SEEN Normal [facility] Comment on above: Performed By: #### G STAIN #### [facility] [address] [address] [address] Kevin Vale MRI FOOT LT WO CONon 023 MRI FOOT LT WO CON HISTORY: The patient has reportedly had a draining wound along the plantar aspect of the left foot since March 2022. Evaluate for possible osteomyelitis. MRI left foot without contrast 07/21/2022. COMPARISON: CT scan left foot 03/31/2022 and radiographs left foot 07/14/2022. TECHNIQUE: Multiplanar, multisequence MRI images of the left midfoot/forefoot were obtained without contrast. FINDINGS: Multiple images are degraded by motion artifact. There is a soft tissue ulcer along the plantar aspect of the first MTP joint region measuring approximately 1.2 x 1.5 cm in AP and transverse dimension respectively. This extends approximately 3 mm deep to the skin surface. No fluid signal intensity collection is seen in this region. There is mild decreased T1 signal intensity involving the bone marrow of the adjacent medial sesamoid bone. The bone marrow signal intensity appears age appropriate. IMPRESSION: There is a soft tissue ulcer along the plantar aspect of the first MTP joint region and there is mild decreased T1 signal intensity involving the bone marrow of the adjacent medial sesamoid bone concerning for underlying osteomyelitis of this bone. No soft tissue abscess is seen. Electronically authenticated by: JESUS GARCIA Date: 2022-07-22 12:33 Normal [facility] XR FOREIGN BODY EYEon 2022 XR FOREIGN BODY EYE EXAMINATION: XR FOREIGN BODY EYE HISTORY: Foreign body in eye COMPARISON: No relevant comparison available. FINDINGS: ORBITS: Negative for a metallic foreign body. OTHER: Negative. IMPRESSION: No metallic foreign body in the orbits Electronically authenticated by: KYE MCINTOSH Date: 2022-07-21 10:57 Normal [facility] Follow-Upon 07-20-2022 Follow-Up [id number] Sadie Hawkins 1970 M Date Provider Department Center 07/20/2022 JUANJOSE CRAIG RUST SURG [place] Family History Problem Relation Age of Onset Cancer Mother Heart attack Father Family Status - Relation Status Age at Mother Father Level of Service:05980 MS OFFICE/OUTPATIENT ESTABLISHED LOW MDM 20-29 MIN Reason for Visit and Comments: Follow-up [582275] - Pinched nerve; Last visit patient had no movement and today he has a little movement in the right toe and leg. Normal [facility] CBC AUTO DIFFon 07-14-2022 BASO # 0.1 103/ul Normal 0.0-0.1 [facility] Comment on above: Performed By: #### C BC #### [facility] [address] [place] [address] Dr. Kevin Vale Basophils/100 WBC (Bld) 1.0 % Normal 0.2-2.0 [facility] Comment on above: Performed By: #### C BC #### [facility] [address] [place] [address] Dr. Kevin Vale EO # 0.3 103/ul Normal 0.0-0.7 [facility] Comment on above: Performed By: #### C BC #### [facility] [address] [place] [address] Dr. Kevin Vale Eosinophils/100 WBC (Bld) 3.7 % Normal 0.9-7.0 [facility] Comment on above: Performed By: #### C BC #### [facility] [address] [place] [address] Dr. Kevin Vale Erythrocyte distribution width (RBC) [Ratio] 14.6 % Normal 11.0-15.0 [facility] Comment on above: Performed By: #### C BC #### [facility] [address] [place] [address] Dr. Kevin Vale Hematocrit (Bld) [Volume fraction] 38.5 % Critically low 42.0-54.0 [facility] Comment on above: Performed By: #### C BC #### [facility] [address] [place] [address] Dr. Kevin Vale Hemoglobin (Bld) [Mass/Vol] 12.5 g/dL Critically low 14.0-18.0 [facility] Comment on above: Performed By: #### C BC #### [facility] [address] [place] [address] Dr. Kevin Vale IG # 0.06 10e3/ul Critically high 0.00-0.03 [facility] Comment on above: Performed By: #### C BC #### [facility] [address] [place] [address] Dr. Kevin Vale IG % 0.7 % Critically high 0.0-0.5 [facility] Comment on above: Performed By: #### C BC #### [facility] [address] [place] [address] Dr. Kevin Vale LYMPH # 1.8 103/ul Normal 1.2-3.8 [facility] Comment on above: Performed By: #### C BC #### [facility] [address] [place] [address] Dr. Kevin Vale Lymphocytes/100 WBC (Bld) 22.0 % Normal 20.5-60.0 [facility] Comment on above: Performed By: #### C BC #### [facility] [address] [place] [address] Dr. Kevin Vale MANUAL DIFF REQ NO Normal [facility] Comment on above: Performed By: #### C BC #### [facility] [address] [place] [address] Dr. Kevin Vale MCH (RBC) [Entitic mass] 29.9 pg Normal 25.9-34.0 [facility] Comment on above: Performed By: #### C BC #### [facility] [address] [place] [address] Dr. Kevin Vale MCHC (RBC) [Mass/Vol] 32.5 g/dL Normal 29.9-35.2 [facility] Comment on above: Performed By: #### C BC #### [facility] [address] [place] [address] Dr. Kevin Vale MCV (RBC) [Entitic vol] 92.1 fL Normal 80.0-94.0 [facility] Comment on above: Performed By: #### C BC #### [facility] [address] [place] [address] Dr. Kevin Vale MONO # 0.8 103/ul Normal 0.3-0.8 [facility] Comment on above: Performed By: #### C BC #### [facility] [address] [address] [address] Kevin Vale Monocytes/100 WBC (Bld) 9.4 % Normal 1.7-12.0 [facility] Comment on above: Performed By: #### C BC #### [facility] [address] [address] [address] Kevin Vale NEUT # 5.3 103/ul Normal 1.4-6.5 [facility] Comment on above: Performed By: #### C BC #### [facility] [address] [address] [address] Kevin Vale Neutrophils/100 WBC (Bld) 63.2 % Normal 43.0-75.0 [facility] Comment on above: Performed By: #### C BC #### [facility] [address] [place] [address] Dr. Kevin Vale Platelet mean volume (Bld) [Entitic vol] 10.7 fL Normal 9.5-13.5 [facility] Comment on above: Performed By: #### C BC #### [facility] [address] [place] [address] Dr. Kevin Vale PLT 348 103/ul Normal 150-450 [facility] Comment on above: Performed By: #### C BC #### [facility] [address] [place] [address] Dr. Kevin Vale RBC 4.18 106/ul Critically low 4.70-6.10 [facility] Comment on above: Performed By: #### C BC #### [facility] [address] [place] [address] Dr. Kevin Vale WBC 8.3 103/ul Normal 4.0-11.0 [facility] Comment on above: Performed By: #### C BC #### [facility] [address] [place] [address] Dr. Kevin Vale CRPon 07-14-2022 CRP 2.0 mg/dL Critically high <=1.0 [facility] Comment on above: Performed By: #### B MP, CRP #### [facility] [address] [place] [address] Dr. Kevin Vale GLYCOHEMOGLOBIN A1Con 2022 ADA RECOMMENDATION SEE BELOW Normal [facility] Comment on above: Result Comment: ADA RECOMMENDED LIMIT 4.0 - 6.0 ADA THERAPEUTIC TARGET < 7.0 ACTION SUGGESTED > 7.0 Performed By: #### G STAIN #### [facility] [address] [address] [address] Kevin Vale Glucose [Mass/Vol] 166 mg/dL Normal [facility] Comment on above: Performed By: #### G STAIN #### [facility] [address] [place] [address] Dr. Kevin Vale HbA1c (Bld) [Mass fraction] 7.4 % Critically high 4.5-6.2 [facility] Comment on above: Performed By: #### G STAIN #### [facility] [address] [place] [address] Dr. Kevin Vale PROF CHEM 8 (BAS METB)on Anion gap [Moles/Vol] 15.0 mmol/L Normal [facility] Comment on above: Performed By: #### B MP, CRP #### [facility] [address] [place] [address] Dr. Kevin Vale Calcium [Mass/Vol] 9.3 mg/dL Normal 8.5-10.1 [facility] Comment on above: Performed By: #### B MP, CRP #### [facility] [address] [place] [address] Dr. Kevin Vale Chloride [Moles/Vol] 100 mmol/L Normal 98-107 [facility] Comment on above: Performed By: #### B MP, CRP #### [facility] [address] [place] [address] Dr. Kevin Vale CO2 [Moles/Vol] 27.3 mmol/L Normal 21.0-32.0 [facility] [place] [facility] Comment on above: Performed By: #### B MP, CRP #### [facility] [address] [place] [address] Dr. Kevin Vale Creatinine [Mass/Vol] 2.06 mg/dL Critically high 0.70-1.30 [facility] Comment on above: Performed By: #### B MP, CRP #### [facility] [address] [address] [address] Kevin Vale EGFR-AF SOUTH AFRICAN 41 mL/min/1.73m2 Critically low >=60 [facility] Comment on above: Performed By: #### B MP, CRP #### [facility] [address] [address] [address] Kevin Vale EGFR-NON AF SOUTH AFRICAN 34 mL/min/1.73m2 Critically low >=60 [facility] Comment on above: Performed By: #### B MP, CRP #### [facility] [address] [address] [address] Kevin Vale Glucose [Mass/Vol] 176 mg/dL Critically high 74-106 T [facility] Comment on above: Performed By: #### B MP, CRP #### [facility] [address] [address] [address] Kevin Vale Potassium [Moles/Vol] 5.3 mmol/L Critically high 3.5-5.1 [facility] Comment on above: Performed By: #### B MP, CRP #### [facility] [address] [address] [address] Kevin Vale Sodium [Moles/Vol] 137 mmol/L Normal 136-145 [facility] Comment on above: Performed By: #### B MP, CRP #### [facility] [address] [address] [address] Kevin Vale Urea nitrogen [Mass/Vol] 43.0 mg/dL Critically high 7.0-18.0 [facility] Comment on above: Performed By: #### B MP, CRP #### [facility] [address] [address] [address] Kevin Vale Urea nitrogen/Creatinin e [Mass ratio] 20.9 mg/mg Normal [facility] Comment on above: Performed By: #### B MP, CRP #### [facility] [address] [place], [place] [address] Dr. Kevin Vale [facility] SED RATE 110 mm/hr Critically high <=20 [facility] Comment on above: Performed By: #### G STAIN #### [facility] [address] [place], [place] [address] Dr. Kevin Vale Consulton 05-18-2022 Consult [id number] [place] 1970 M Date Provider Department Center 05/18/2022 Rogelio0-JUANJOSE [facility] [place] Family History Problem Relation Age of Onset Cancer Mother Heart attack Father Family Status - Relation Status Age at Mother Father Level of Service:11040 MS OFFICE CONSULTATION NEW/ESTAB PATIENT 40 MIN Reason for Visit and Comments: Consult [484] - pinched nerve in back Normal [facility] CT FOOT LT WO W CONon 2021 CT FOOT LT WO W CON EXAMINATION: CT FOOT LT WO W CON HISTORY: Chronic ulcer of foot ; blister on ball of foot for 2 weeks; diabetic COMPARISON: XR foot left 03/30/2022 TECHNIQUE: After obtaining the patient's consent, multi-planar CT images were created without and with non-ionic intravenous contrast material. Dose reduction techniques were achieved by using automated exposure control and/or adjustment of mA and/or kV according to patient size and/or use of iterative reconstruction technique. FINDINGS: BONES: Mild calcaneal degenerative enthesopathic spurring. No fracture, dislocation, bone lesion, or destructive/lytic process. SOFT TISSUES: No visible soft tissue swelling, mass, or ulcer. EFFUSION: None visible. OTHER: Negative. IMPRESSION: 1. No acute or suspicious findings. No findings to suggest osteomyelitis or appreciable abscess. Electronically authenticated by: RENITA VERDIN Date: 2022-03-31 16:18 Normal [facility] MRI LSPINE WO CONon 03-26-20 22 MRI LSPINE WO CON EXAMINATION: MRI LSP INE WO CON HISTORY: Pain in limb ; bilateral leg weakness, new onset right foot drop COMPARISON: MRI lumbar spine 03/21/2021 TECHNIQUE: A variety of imaging planes and parameters were utilized for visualization of suspected pathology. FINDINGS: For the purposes of numbering, sagittal T2 image # 8 extends from the T12 vertebral body superiorly to the S3 level inferiorly. PARASPINAL AREA: Normal with no visible mass. BONES: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 [place] [address] Chloride 106 mmol/L Normal 98-107 [facility] Comment on above: Performed By: #### C BC, BMP, TRIG ####[facility] [address]vugvu[address] [place] [address] CO2 23 mmol/L Normal 20-31 [facility] Comment on above: Performed By: #### C BC, BMP, TRIG ####[facility] HospitalAseptiaXlhdffwvkrgm6840 [place] [address] Creatinine 0.61 mg/dL Low 0.70-1.20 [facility] Comment on above: Performed By: #### C BC, BMP, TRIG ####[facility] Wzmxknuyblzv7612 [place] [address] eGFR (non-black) mL/min/{1.73_m2} Normal >60 [facility] Comment on above: Performed By: #### C BC, BMP, TRIG ####[facility] [address]fc[address]fn[address] [place] [address] Glucose mass conc 188 mg/dL High 70-99 [facility] Comment on above: Performed By: #### C BC, BMP, TRIG ####[facility] V[address]owldpom[address]32 [place] [address] Potassium molar conc 3.4 mmol/L Low 3.7-5.3 [facility] Comment on above: Performed By: #### C BC, BMP, TRIG ####[facility] Vdccwmhpckml3829 [place] [address] Sodium 145 mmol/L High 135-144 [facility] Comment on above: Performed By: #### C BC BMP, TRIG ####[facility] [address]fnsor[address] [place] [address] Urea nitrogen 11 mg/dL Normal -20 [facility] Comment on above: Performed By: #### C BC BMP, TRIG ####[facility] [address]ukcksrydt[address] [place] [address] BUN/CRE Ratio NOT REPORTED Normal - [facility] Comment on above: Performed By: #### C GHULAM BMP, TRIG ####[facility] [address]itsmiz[address]86 [place] [address] Staging: NOT REPORTED Normal [facility] Comment on above: Performed By: #### C GHULAM BMP, TRIG ####[facility] [address] [place] [address] CBCon 01-15-2017 Erythrocyte distribution width Auto Ratio (RBC) 14.0 % Normal 12.5-15.4 [facility] Comment on above: Performed By: #### C BC BMP, TRIG ####[address] Ltd[address] [place] [address] Erythrocytes (RBC) 3.34 10*6/uL Low 4.5-5.9 [facility] Comment on above: Performed By: #### C BC, BMP, TRIG ####[facility] [address]csnevk7[address] [place] [address] Hematocrit (HCT) 28.7 % Low 41-53 [facility] Comment on above: Performed By: #### C BC, BMP, TRIG ####[facility] I[address]muwmwshzb0745 [place] [address] Hemoglobin mass conc (Bld) 9.8 g/dL Low 13.5-17.5 [facility] Comment on above: Performed By: #### C BC, BMP, TRIG ####[facility] W[address]xrjyypxe2407 [place] [address] MCH 29.4 pg Normal 26-34 [facility] Comment on above: Performed By: #### C BC, BMP, TRIG ####[facility] [address] [place] [address] MCHC mass conc (RBC) 34.2 g/dL Normal 31-37 [facility] Comment on above: Performed By: #### C BC, BMP, TRIG ####[facility] [address] [place] [address] MCV 85.9 fL Normal 80-100 [facility] Comment on above: Performed By: #### C BC, BMP, TRIG ####[address] [address] Platelet mean volume (PMV) 7.8 fL Normal 6.0-12.0 [facility] Comment on above: Result Comment: [address] [place] [address] Performed By: #### C BC, BMP, TRIG ####[address] [address] Platelets 495 10*3/uL High 140-450 [facility] Comment on above: Performed By: #### C BC, BMP, TRIG ####[address] [address] WBC (Leukocytes) 8.9 10*3/uL Normal 3.5-11.0 [facility] Comment on above: Performed By: #### C BC, BMP, TRIG ####[address] [address] [address] CERVICAL SPINE WO CONTRAS Ton 01-15-2017 CT CERVICAL SPINE WO CONTRAST EXAMINATION:CT OF THE CERVICAL SPINE WITHOUT CONTRAST 01/15/2017 3:21 pmTECHNIQUE:CT of the cervical spine was performed without the administration ofintravenous contrast. Multiplanar reformatted images are provided for review.Dose modulation, iterative reconstruction, and/or weight based adjustment ofthe mA/kV was utilized to reduce the radiation dose to as low as reasonablyachievable.COMPARI SON:CT cervical spine from 12/21/2016 and MR cervical spine from 12/21/2016HISTORY:ORDERING SYSTEM PROVIDED HISTORY: fall on face in [id number] male who fell on his faceFINDINGS:BONES/ALIGNMENT : The cervical spine is imaged from the skull base to theinferior T2 vertebral body level. There is stable remote compressiondeformities of the anterior C7, and T1, and T2 vertebral body levels.Vertebral body heights otherwise well maintained. Alignment well maintained.Facets are in proper alignment. Odontoid appears grossly intact. Lateralmasses symmetric in appearance. Articular pillars appear grossly intact.Occipital condyles articulate properly with the lateral masses.Acute fractures of the right 2nd and 3rd costovertebral junctions involvingthe medial 2nd and 3rd ribs and right transverse processes of T2 and T3.DEGENERATIVE CHANGES:Mild multilevel hypertrophic osteophyte spur formation is noted anteriorlyC5-C6 and C6-C7. These are similar to the previous exam of 12/21/2016.SOFT TISSUES: There is no prevertebral soft tissue swelling.Severe opacification of the right-sided mastoid air cells. Moderateopacification of the left-sided mastoid air cells.Atherosclerotic calcification of the bilateral carotid bifurcations.Visualized lung apices grossly clear.IMPRESSION: 1. Acute fractures involving the right 2nd and 3rd costovertebral junctionsinvolving the medial 2nd and 3rd ribs and the right T2 and T3 transverseprocesses.2. Stable chronic compression fracture deformities of C7, T1, and T2.3. Severe right mastoid sinus disease. Moderate opacity in the left-sidedmastoid air cells.4. Atherosclerotic calcification of the vasculature.5. Mild degenerative changes within the cervical spine, similar to the priorstudy.Interpreted by:LISETH Hooverigned by:Catracho Lara MD01/15/17Final result Normal [facility] CT FACIAL BONES WO CONTRASTo n 01-15-2017 CT FACIAL BONES WO CONTRAST EXAMINATION:CT OF THE FACE WITHOUT CONTRAST 01/15/2017 3:22 pmTECHNIQUE:CT of the face was performed without the administration of intravenouscontrast. Multiplanar reformatted images are provided for review. Dosemodulation, iterative reconstruction, and/or weight based adjustment of themA/kV was utilized to reduce the radiation dose to as low as reasonablyachievable.COMPARI SON:NoneHISTORY:ORDERING SYSTEM PROVIDED HISTORY: fall on face in roomFINDINGS:FACIAL BONES: The maxilla, pterygoid plates and zygomatic arches are intact.The mandible is intact. The mandibular condyles are normally situated.There is a nondisplaced nasal bone fracture and a possible avulsion of theanterior maxillary spine.ORBITS: The globes appear intact. The extraocular muscles, optic nervesheath complexes and lacrimal glands appear unremarkable. No retrobulbarhematoma or mass is seen. The orbital pearson and rims are intact.SINUSES/MASTOIDS: There is mucosal thickening in the right frontal sinus.The other sinuses appear clear.SOFT TISSUES: Unremarkable.The sphenoid sinuses undeveloped. Fluid signal is noted in the middle earcavity and mastoid air cells on the right.The patient is partially edentulous and has extensive dental caries.IMPRESSION: Nasal fracture.Right otomastoiditisInterpreted by:LISETH Chaseigned by:Miguel Ángel Shetty MD01/15/17Final result Normal [facility] CT HEAD WO CONTRASTon 2016 CT HEAD WO CONTRAST EXAMINATION:CT OF THE HEAD WITHOUT CONTRAST 01/15/2017 3:21 pmTECHNIQUE:CT of the head was performed without the administration of intravenouscontrast. Dose modulation, iterative reconstruction, and/or weight basedadjustment of the mA/kV was utilized to reduce the radiation dose to as lowas reasonably achievable.COMPARISON:January 07HISTORY:ORDERING SYSTEM PROVIDED HISTORY: fall on face in roomFINDINGS:BRAIN/VENTRICLE S: Ventricles are normal in caliber and position. Sulci areprominent for the patient's age, unchanged. There is no parenchymal orextra-axial hematoma. There are no new foci of abnormal density.ORBITS: The visualized portion of the orbits demonstrate no acute abnormality.SINUSES: Multifocal minimal paranasal sinus mucosal thickening is noted.Right greater than left mastoid opacification is noted.SOFT TISSUES/SKULL: Flattening of the nasal bone asymmetry that noted on theprior examination. There is soft tissue swelling in the nasal bone region.Correlate clinically. If there is concern for facial fracture, consider CTfacial boneIMPRESSION: Soft tissue swelling in the nasal bone region. Correlate clinicallyNo acute intracranial abnormality otherwise.Interpreted by:LISETH Ortegaigned by:Rainer Fontana MD01/15/17Final result Normal [facility] CT LUMBAR SPINE WO CONTRASTo n 01-15-2017 CT LUMBAR SPINE WO CONTRAST EXAMINATION:CT OF THE THORACIC SPINE WITHOUT CONTRAST; CT OF THE LUMBAR SPINE WITHOUTCONTRAST 01/15/2017 3:28 pm:TECHNIQUE:CT of the thoracic spine was performed without the administration ofintravenous contrast. Multiplanar reformatted images are provided for review.Dose modulation, iterative reconstruction, and/or weight based adjustment ofthe mA/kV was utilized to reduce the radiation dose to as low as reasonablyachievable.; CT of the lumbar spine was performed without the administrationof intravenous contrast. Multiplanar reformatted images are provided forreview. Dose modulation, iterative reconstruction, and/or weight basedadjustment of the mA/kV was utilized to reduce the radiation dose to as lowas reasonably achievable.COMPARISON:CT thoracic spine from 12/21/2016, MR thoracic spine from 12/21/2016, CTlumbar spine from 12/21/2016HISTORY:ORDERING SYSTEM PROVIDED HISTORY: fall on face in [id number] male with fall on face in room, traumaFINDINGS:Thoracic spine:BONES/ALIGNMENT: The thoracic spine is imaged from the superior aspect of C6to the inferior endplate of L1 on the sagittal reconstructions. Stablecompression deformities of C7, T1, T2, and T4 noted, similar to the previousexam. Multilevel Schmorl's node deformities are again noted.There is development of a lucency which is transversely oriented through theT8 vertebral body which is new from the previous exam. There was marrowedema at T8 on the MR thoracic spine of 12/21/2016 and therefore this isfavored to represent evolution or bony resorption involving a knowncompression fracture. There is underlying diffuse osteopenia. Noretropulsion identified. Alignment of the thoracic vertebral bodies remainsunchanged from the previous study.No interval increased height loss is seen at the known T11 compressionfracture where there was marrow edema on the MR thoracic spine of 12/21/2016.Subacute nondisplaced to minimally displaced fractures of the right 2ndthrough 5th costovertebral junctions involving the medial 2nd through 5thribs and right transverse processes of the T2 through T5 vertebral bodies.These are seen on the prior study of 12/21/2016.DEGENERATIVE CHANGES: No gross spinal canal stenosis or bony neural foraminalnarrowing of the thoracic spine.SOFT TISSUES: No paraspinal mass is seen.Mild dependent atelectasis is seen within the visualized portions of bothlungs mild parenchymal banding is seen at the medial right lower lobe.Parenchymal banding is seen within the medial left lower lobe.Mild diffuse wall thickening of the esophagus. Atherosclerotic calcificationof the visualized thoracic and abdominal aorta. Coronary artery disease.Mildly enlarged right paratracheal and subcarinal lymph nodes identified,similar to the prior study.Lumbar spine:BONES/ALIGNMENT: Lumbar spine is imaged from the superior endplate of T12 tothe S4 level on the sagittal reconstructions. Gross preservation of thevertebral body heights and intervertebral disc spaces. Multilevel Schmorl'snode deformities are present. Alignment well maintained. Bilateral SIjoints appear patent. Axial images demonstrate no clear evidence for acutefracture within the lumbar spine.DEGENERATIVE CHANGES: No gross spinal canal stenosis or bony neural foraminalnarrowing of the lumbar spine.SOFT TISSUES: No paraspinal mass is seen. Atherosclerotic calcification ofthe abdominal aorta and iliac branch vasculature.IMPRESSION: Thoracic spine:1. Transversely oriented lucency through the T8 vertebral body which is newfrom the prior study. This vertebral body previously had marrow edema alongwith T11 on the MR of 12/21/2016 and likely represents a evolution or bonyresorption of a known T8 compression fracture. No change in the appearanceof T11 which also head marrow edema on the 12/21/2016 MR.2. Known compression fracture deformities of C7, T1, T2, and T4, similar tothe prior study.3. Subacute nondisplaced to minimally displaced subacute fractures of theright 2nd through 5th costovertebral junctions involving the right medial 2ndthrough 5th ribs and right transverse processes of the T2 through F1xwhcabkfi bodies.4. Mild diffuse wall thickening of the esophagus. Mildly enlarged rightparatracheal and subcarinal lymph nodes, similar to the prior study.Lumbar spine:1. No clear evidence for acute fracture or malalignment within the lumbarspine.2. Multilevel Schmorl's node deformities within the lumbar spine.Findings were discussed with Dr. Calderon at 4:23 pm on 01/15/2017.Interpreted by:LISETH Hooverigned by:Catracho Lara MD01/15/17Final result Normal [facility] CT THORACIC SPINE WO CONTRAS Ton 01-15-2017 CT THORACIC SPINE WO CONTRAST EXAMINATION:CT OF THE THORACIC SPINE WITHOUT CONTRAST; CT OF THE LUMBAR SPINE WITHOUTCONTRAST 01/15/2017 3:28 pm:TECHNIQUE:CT of the thoracic spine was performed without the administration ofintravenous contrast. Multiplanar reformatted images are provided for review.Dose modulation, iterative reconstruction, and/or weight based adjustment ofthe mA/kV was utilized to reduce the radiation dose to as low as reasonablyachievable.; CT of the lumbar spine was performed without the administrationof intravenous contrast. Multiplanar reformatted images are provided forreview. Dose modulation, iterative reconstruction, and/or weight basedadjustment of the mA/kV was utilized to reduce the radiation dose to as lowas reasonably achievable.COMPARISON:CT thoracic spine from 12/21/2016, MR thoracic spine from 12/21/2016, CTlumbar spine from 12/21/2016HISTORY:ORDERING SYSTEM PROVIDED HISTORY: fall on face in [id number] male with fall on face in room, traumaFINDINGS:Thoracic spine:BONES/ALIGNMENT: The thoracic spine is imaged from the superior aspect of C6to the inferior endplate of L1 on the sagittal reconstructions. Stablecompression deformities of C7, T1, T2, and T4 noted, similar to the previousexam. Multilevel Schmorl's node deformities are again noted.There is development of a lucency which is transversely oriented through theT8 vertebral body which is new from the previous exam. There was marrowedema at T8 on the MR thoracic spine of 12/21/2016 and therefore this isfavored to represent evolution or bony resorption involving a knowncompression fracture. There is underlying diffuse osteopenia. Noretropulsion identified. Alignment of the thoracic vertebral bodies remainsunchanged from the previous study.No interval increased height loss is seen at the known T11 compressionfracture where there was marrow edema on the MR thoracic spine of 12/21/2016.Subacute nondisplaced to minimally displaced fractures of the right 2ndthrough 5th costovertebral junctions involving the medial 2nd through 5thribs and right transverse processes of the T2 through T5 vertebral bodies.These are seen on the prior study of 12/21/2016.DEGENERATIVE CHANGES: No gross spinal canal stenosis or bony neural foraminalnarrowing of the thoracic spine.SOFT TISSUES: No paraspinal mass is seen.Mild dependent atelectasis is seen within the visualized portions of bothlungs mild parenchymal banding is seen at the medial right lower lobe.Parenchymal banding is seen within the medial left lower lobe.Mild diffuse wall thickening of the esophagus. Atherosclerotic calcificationof the visualized thoracic and abdominal aorta. Coronary artery disease.Mildly enlarged right paratracheal and subcarinal lymph nodes identified,similar to the prior study.Lumbar spine:BONES/ALIGNMENT: Lumbar spine is imaged from the superior endplate of T12 tothe S4 level on the sagittal reconstructions. Gross preservation of thevertebral body heights and intervertebral disc spaces. Multilevel Schmorl'snode deformities are present. Alignment well maintained. Bilateral SIjoints appear patent. Axial images demonstrate no clear evidence for acutefracture within the lumbar spine.DEGENERATIVE CHANGES: No gross spinal canal stenosis or bony neural foraminalnarrowing of the lumbar spine.SOFT TISSUES: No paraspinal mass is seen. Atherosclerotic calcification ofthe abdominal aorta and iliac branch vasculature.IMPRESSION: Thoracic spine:1. Transversely oriented lucency through the T8 vertebral body which is newfrom the prior study. This vertebral body previously had marrow edema alongwith T11 on the MR of 12/21/2016 and likely represents a evolution or bonyresorption of a known T8 compression fracture. No change in the appearanceof T11 which also head marrow edema on the 12/21/2016 MR.2. Known compression fracture deformities of C7, T1, T2, and T4, similar tothe prior study.3. Subacute nondisplaced to minimally displaced subacute fractures of theright 2nd through 5th costovertebral junctions involving the right medial 2ndthrough 5th ribs and right transverse processes of the T2 through P6wfcbkdmlb bodies.4. Mild diffuse wall thickening of the esophagus. Mildly enlarged rightparatracheal and subcarinal lymph nodes, similar to the prior study.Lumbar spine:1. No clear evidence for acute fracture or malalignment within the lumbarspine.2. Multilevel Schmorl's node deformities within the lumbar spine.Findings were discussed with Dr. Calderon at 4:23 pm on 01/15/2017.Interpreted by:LISETH Hooverigned by:Catracho Lara MD01/15/17Final result Normal [facility] XR KNEE LEFT STANDARDon 07-0 XR KNEE LEFT STANDARD EXAMINATION:3 VIEWS OF THE LEFT KNEE01/15/2017 3:24 pmCOMPARISON:None.HISTORY:OR DERING SYSTEM PROVIDED HISTORY: fall, knee abrasionsTECHNOLOGIST PROVIDED HISTORY:Reason for exam:->fall, knee abrasionsFINDINGS:Prior ACL repair. No fracture or dislocation. No radiopaque foreign body orsoft tissue swelling.IMPRESSION: No fracture.Interpreted by:LISETH Calvilloigned by:Rhys Wilhelm MD01/15/17Final result Normal [facility] XR KNEE RIGHT STANDARDon XR KNEE RIGHT STANDARD EXAMINATION:3 VIEWS OF THE RIGHT KNEE01/15/2017 3:24 pmCOMPARISON:12/21/2016HISTO RY:ORDERING SYSTEM PROVIDED HISTORY: fall, knee abrasionTECHNOLOGIST PROVIDED HISTORY:Reason for exam:->fall, knee abrasionFINDINGS:There is no evidence of acute fracture. There is normal alignment. No acutejoint abnormality. No focal osseous lesion. No focal soft tissue abnormality.IMPRESSION: No acute osseous abnormality.Interpreted by:LISETH Calvilloigned by:Rhys Wilhelm MD01/15/17Final result Normal [facility] Basic Metabolic Profon 01-13 (cont.) Normal [facility] Comment on above: Result Comment: Aver age GFR for 40-49 years old: 99 mL/min/1.73sq mChronic Kidney Disease: <60 mL/min/1.73sq mKidney failure: <15 mL/min/1.73sq meGFR calculated using average adult body mass. Additional eGFR calculator available at:http://www.Projjix.Primary Data/multiple_crcl_2012.htm[address] [address] ([phone] Performed By: #### C BC, BMP, TRIG ####[facility] [address] [place] [address] Anion gap 13 mmol/L Normal 9-17 [facility] Comment on above: Performed By: #### C BC, BMP, TRIG ####[facility] Fypljeqmvhdp4396 [place] [address] Calcium 8.1 mg/dL Low 8.6-10.4 [facility] Comment on above: Performed By: #### C BC, BMP, TRIG ####[facility] Tnygvupjikbi1149 [place] [address] Chloride 111 mmol/L High 98-107 [facility] Comment on above: Performed By: #### C BC, BMP, TRIG ####[facility] HospitalAseptiaAcioogwzthpt7010 [place] [address] CO2 24 mmol/L Normal 20-31 [facility] Comment on above: Performed By: #### C BC, BMP, TRIG ####[facility] Evqcglcnjnvg0731 [place] [address] Creatinine 0.69 mg/dL Low 0.70-1.20 [facility] Comment on above: Performed By: #### C BC, BMP, TRIG ####[facility] Qwnzdlkvidqn0952 [place] [address] eGFR (non-black) mL/min/{1.73_m2} Normal >60 [facility] Comment on above: Performed By: #### C BC, BMP, TRIG ####[facility] Gmv[address]rqijqzeu1964 [place] [address] Glucose mass conc 268 mg/dL High 70-99 [facility] Comment on above: Performed By: #### C BC, BMP, TRIG ####[facility] Yssjoftxtblq4590 [place] [address] Potassium molar conc 3.4 mmol/L Low 3.7-5.3 [facility] Comment on above: Performed By: #### C BC, BMP, TRIG ####[facility] Ztsefjxyzxsh2702 [place] [address] Sodium 148 mmol/L High 135-144 [facility] Comment on above: Performed By: #### C BC, BMP, TRIG ####[facility] HospitalAseptiaXxrcwbhqaarv6550 [place] [address] Urea nitrogen 14 mg/dL Normal - [facility] Comment on above: Performed By: #### C BC, BMP, TRIG ####[facility] HospitalAseptiaEmpyacfwltim9006 [place] [address] BUN/CRE Ratio NOT REPORTED Normal - [facility] Comment on above: Performed By: #### C BC, BMP, TRIG ####[facility] HospitalAseptiaEiebsuaixdfl[address] [place] [address] Staging: NOT REPORTED Normal [facility] Comment on above: Performed By: #### C BC, BMP, TRIG ####[facility] HospitalAseptiaEjxvoaibxhdo8057 [place] [address] CBCon 01-13-2017 Erythrocyte distribution width Auto Ratio (RBC) 13.8 % Normal 12.5-15.4 [facility] Comment on above: Performed By: #### C BC, BMP, TRIG ####[facility] HospitalAseptiaSiptwefzgoxp3[address] [place] [address] Erythrocytes (RBC) 3.17 10*6/uL Low 4.5-5.9 [facility] Comment on above: Performed By: #### C BC, BMP, TRIG ####[facility] HospitalAseptiaZmgikyslcwck2301 [place] [address] Hematocrit (HCT) 27.2 % Low 41-53 [facility] Comment on above: Performed By: #### C BC, BMP, TRIG ####[facility] HospitalAseptiaXbfrvgszrghb2764 [place] [address] Hemoglobin mass conc (Bld) 9.2 g/dL Low 13.5-17.5 [facility] Comment on above: Performed By: #### C BC BMP, TRIG ####[facility] AmaroXravamwbowdp8513 [place] [address] MCH 29.2 pg Normal 26-34 [facility] Comment on above: Performed By: #### C BC BMP, TRIG ####[facility] AmaroLugzxynsfcjf[address] [place] [address] MCHC mass conc (RBC) 34.0 g/dL Normal 31-37 [facility] Comment on above: Performed By: #### C GHULAM BMP, TRIG ####[facility] [address] [address] MCV 85.8 fL Normal 80-100 [facility] Comment on above: Performed By: #### C GHULAM BMP, TRIG ####[address] [address] Platelet mean volume (PMV) 8.1 fL Normal 6.0-12.0 [facility] Comment on above: Result Comment: [address] [address] Performed By: #### C GHULAM BMP, TRIG ####[address] [address] Platelets 533 10*3/uL High 140-450 [facility] Comment on above: Performed By: #### C BC, BMP, TRIG ####[address] [address] WBC (Leukocytes) 10.3 10*3/uL Normal 3.5-11.0 [facility] Comment on above: Performed By: #### C BC, BMP, TRIG ####[address] [address] XR ABDOMEN LIMITED (KUB)on 0 01-13-2017 XR ABDOMEN LIMITED (KUB) EXAMINATION:SUPINE VIEW(S) OF THE ABDOMEN01/13/2017 7:11 amCOMPARISON:Chest x-ray from 01/07/2017.HISTORY:ORDERING SYSTEM PROVIDED HISTORY: Patient partially pulled out flexiflow NGplease eval for locationTECHNOLOGIST PROVIDED HISTORY:Reason for exam:->Patient partially pulled out flexiflow NG please eval forlocationFINDINGS:The right flank and pelvis are not included on the exam. Distal tip of theenteric tube now projects over the expected location of the body of thestomach. There is air seen in the nondilated colon. No dilated air-filledloops small bowel are identified in the visualized abdomen. Visualized lungbases appear well aerated.IMPRESSION: Enteric tube extends to the level of the body of the stomach.Interpreted by:LISETH Cruzigned by:Kun Hager MD01/13/17Final result Normal [facility] Basic Metabolic Profon 01-12 (cont.) Normal [facility] Comment on above: Result Comment: Aver age GFR for 40-49 years old: 99 mL/min/1.73sq mChronic Kidney Disease: <60 mL/min/1.73sq mKidney failure: <15 mL/min/1.73sq meGFR calculated using average adult body mass. Additional eGFR calculator available at:http://www.Projjix.Primary Data/multiple_crcl_2012.htmSalem Regional Medical Centercy [facility] [address] [place] [address] Performed By: #### C MELANI PARMAR, TRIG ####[employer] [place] [address] Anion gap 19 mmol/L High 03-28 [facility] Comment on above: Performed By: #### C GHULAM BMP, TRIG ####[employer] [place] [address] Calcium 8.8 mg/dL Normal 8.6-10.4 [facility] Comment on above: Performed By: #### C BC, BMP, TRIG ####[facility] Hvsqtwwyjaid5973 [place] [address] Chloride 110 mmol/L High 98-107 [facility] Comment on above: Performed By: #### C BC, BMP, TRIG ####[facility] Ztsedrrywuvv8511 [place] [address] CO2 20 mmol/L Normal 20-31 [facility] Comment on above: Performed By: #### C BC, BMP, TRIG ####[facility] Ihewmwfqpkht1027 [place] [address] Creatinine 0.77 mg/dL Normal 0.70-1.20 [facility] Comment on above: Performed By: #### C BC, BMP, TRIG ####[facility] HospitalAseptiaOaomnupyijds4987 [place] [address] eGFR (non-black) mL/min/{1.73_m2} Normal >60 [facility] Comment on above: Performed By: #### C BC, BMP, TRIG ####[facility] Swgvgqdktpuv0897 [place] [address] Glucose mass conc 239 mg/dL High 70-99 [facility] Comment on above: Performed By: #### C BC, BMP, TRIG ####[facility] Qwloflamixdh4743 [place] [address] Potassium molar conc 3.6 mmol/L Low 3.7-5.3 [facility] Comment on above: Performed By: #### C BC, BMP, TRIG ####[facility] Jreejolhfptq8067 [place] [address] Sodium 149 mmol/L High 135-144 [facility] Comment on above: Performed By: #### C BC, BMP, TRIG ####[facility] Oafrmxbqkgfj3239 [place] [address] Urea nitrogen 18 mg/dL Normal 6-20 [facility] Comment on above: Performed By: #### C BC, BMP, TRIG ####[facility] Crmrziuzfhay9871 [place] [address] BUN/CRE Ratio NOT REPORTED Normal 9-20 [facility] Comment on above: Performed By: #### C BC, BMP, TRIG ####[facility] [address] [address] Staging: NOT REPORTED Normal [facility] Comment on above: Performed By: #### C BC, BMP, TRIG ####[facility] [address] [address] CBCon 01-12-2017 Erythrocyte distribution width Auto Ratio (RBC) 13.6 % Normal 12.5-15.4 [facility] Comment on above: Performed By: #### C BC, BMP, TRIG ####[facility] [address]ass[address]cnath[address] [place] [address] Erythrocytes (RBC) 3.46 10*6/uL Low 4.5-5.9 [facility] Comment on above: Performed By: #### C BC, BMP, TRIG ####[employer] [address] [place] [address] Hematocrit (HCT) 29.6 % Low 41-53 [facility] Comment on above: Performed By: #### C BC, BMP, TRIG ####[facility] Tjcnceyhmqwh7310 [place] [address] Hemoglobin mass conc (Bld) 10.1 g/dL Low 13.5-17.5 [facility] Comment on above: Performed By: #### C BC, BMP, TRIG ####[facility] [address]loo5020 [place] [address] MCH 29.1 pg Normal 26-34 [facility] Comment on above: Performed By: #### C BC, BMP, TRIG ####[facility] Xerwwbbtemab3101 [place] [address] MCHC mass conc (RBC) 34.0 g/dL Normal 31-37 [facility] Comment on above: Performed By: #### C BC, BMP, TRIG ####[facility] Frpvjwkdkxej6878 [place] [address] MCV 85.7 fL Normal 80-100 [facility] Comment on above: Performed By: #### C GHULAM BMP, TRIG ####[facility] [address] [place] [address] Platelet mean volume (PMV) 8.2 fL Normal 6.0-12.0 [facility] Comment on above: Result Comment: [address] [place] [address] Performed By: #### C GHULAM BMP, TRIG ####[address] [address] Platelets 662 10*3/uL High 140-450 [facility] Comment on above: Performed By: #### C GHULAM BMP, TRIG ####[facility] [address] [place] [address] WBC (Leukocytes) 12.6 10*3/uL High 3.5-11.0 [facility] Comment on above: Performed By: #### [place] PARMAR BMP, TRIG ####[facility] [address] [place] [address] Basic Metabolic Profon 01-11 (cont.) Normal [facility] Comment on above: Result Comment: Aver age GFR for 40-49 years old: 99 mL/min/1.73sq mChronic Kidney Disease: <60 mL/min/1.73sq mKidney failure: <15 mL/min/1.73sq meGFR calculated using average adult body mass. Additional eGFR calculator available at:http://www.Projjix.com/multiple_crcl_2012.htmSalem Regional Medical Centercy [facility] [address] [place] [address] Performed By: #### [place] PARMAR BMP, TRIG ####[facility] Wfth[address]htdgzpj4098 [place] [address] Anion gap 18 mmol/L High 9-17 [facility] Comment on above: Performed By: #### [place] PARMAR BMP, TRIG ####[facility] Fytfspjuhwrv8516 [place] [address] Calcium 8.7 mg/dL Normal 8.6-10.4 [facility] Comment on above: Performed By: #### [place] PARMAR BMP, TRIG ####[facility] [address]td[address]sbts[address] [place] [address] Chloride 108 mmol/L High 98-107 [facility] Comment on above: Performed By: #### [place] PARMAR BMP, TRIG ####[facility] [address]rcrqnhswd[address] [place] [address] CO2 20 mmol/L Normal 20-31 [facility] Comment on above: Performed By: #### [place] PARMAR BMP, TRIG ####[facility] [address]ust[address]ajrtida[address] [place] [address] Creatinine 0.73 mg/dL Normal 0.70-1.20 [facility] Comment on above: Performed By: #### [place] PARMAR BMP, TRIG ####[facility] Oxkzwzbshqlv5435 [place] [address] eGFR (non-black) mL/min/{1.73_m2} Normal >60 [facility] Comment on above: Performed By: #### [place] PARMAR BMP, TRIG ####[facility] Jsslbxbvnwob9675 [place] [address] Glucose mass conc 183 mg/dL High 70-99 [facility] Comment on above: Performed By: #### C BC, BMP, TRIG ####[facility] [place] [address] Potassium molar conc 3.9 mmol/L Normal 3.7-5.3 [facility] Comment on above: Performed By: #### C BC, BMP, TRIG ####[facility] R[address]wpuj[address]ug[address]806 [place] [address] Sodium 146 mmol/L High 135-144 [facility] Comment on above: Performed By: #### C BC, BMP, TRIG ####[employer] Zhxyqkvorslb0486 [place] [address] Urea nitrogen 17 mg/dL Normal -20 [facility] Comment on above: Performed By: #### C BC, BMP, TRIG ####[facility] HospitalAseptiaSynpjqvcujah9100 [place] [address] BUN/CRE Ratio NOT REPORTED Normal - [facility] Comment on above: Performed By: #### C BC, BMP, TRIG ####[facility] Rekepwvcgrzm8497 [place] [address] Staging: NOT REPORTED Normal [facility] Comment on above: Performed By: #### C BC, BMP, TRIG ####[facility] HospitalAseptiaDwvtnepqvvgy3638 [place] [address] CBCon 01-11-2017 Erythrocyte distribution width Auto Ratio (RBC) 13.5 % Normal 12.5-15.4 [facility] Comment on above: Performed By: #### C BC, BMP, TRIG ####[facility] Nmpgbhksbbdn2288 [place] [address] Erythrocytes (RBC) 3.38 10*6/uL Low 4.5-5.9 [facility] Comment on above: Performed By: #### C BC, BMP, TRIG ####[employer] [place] [address] Hematocrit (HCT) 29.8 % Low 41-53 [facility] Comment on above: Performed By: #### C BC, BMP, TRIG ####[facility] Ysharblhydzi9346 [place] [address] Hemoglobin mass conc (Bld) 9.8 g/dL Low 13.5-17.5 [facility] Comment on above: Performed By: #### C BC, BMP, TRIG ####[facility] [address]ls[address] [place] [address] MCH 28.9 pg Normal 26-34 [facility] Comment on above: Performed By: #### C BC, BMP, TRIG ####[facility] [address]bjruvlswmk[address] [place] [address] MCHC mass conc (RBC) 32.9 g/dL Normal 31-37 [facility] Comment on above: Performed By: #### C BC, BMP, TRIG ####[facility] [address]qjltzc[address] [place] [address] MCV 88.0 fL Normal 80-100 [facility] Comment on above: Performed By: #### C BC, BMP, TRIG ####[facility] [address]jeyds[address] [place] [address] Platelet mean volume (PMV) 8.0 fL Normal 6.0-12.0 [facility] Comment on above: Result Comment: [facility] [address] [place] [address] Performed By: #### C BC, BMP, TRIG ####[facility] [place] [address] Platelets 689 10*3/uL High 140-450 [facility] Comment on above: Performed By: #### C BC, BMP, TRIG ####[facility] [place] [address] WBC (Leukocytes) 11.8 10*3/uL High 3.5-11.0 [facility] Comment on above: Performed By: #### C BC, BMP, TRIG ####[facility] [address] [place] [id number] IR PL[address] NG TUBE BY DR Annalisa MILLER OROon 01-11-[address] NG TUBE BY DR Annalisa SHELL PROCEDURE:XR PLACE NASOGASTRIC TUBE PHYS01/11/2017HISTORY:ORDERING SYSTEM PROVIDED HISTORY: unable to place Flexiflo at bedside. pt inCTO brace. Dr. Harrison (trauma resident) to be at bedside when placed in IR forbridle placementTECHNOLOGIST PROVIDED HISTORY:Reason for exam:->unable to place Flexiflo at bedside. pt in ALL ROUND LOGGER brace. (trauma resident) to be at bedside when placed in IR for bridle placementCONTRAST:AirSEDATIO N:NoneFLUOROSCOPY DOSE AND TYPE OR TIME AND EXPOSURES:Fluoroscopy time- 6.3 minutes. D AP -882.86DESCRIPTION OF PROCEDURE:Informed consent was obtained after a detailed explanation of the procedureincluding risks, benefits, and alternatives. Anderson protocol wasobserved. With the patient in the supine position and using fluoroscopicguidance, an 8 FrenchKangaroo feeding tube with its stylet was best into thestomach and manipulated into the duodenum, with its tip positioned past theligament of Treitz in the proximal jejunum. The feeding tube was secured inplace.FINDINGS:Several images show the radiopaque tip in the stomach, duodenum and then atthe ligament of Treitz.IMPRESSION: Successful fluoroscopic guided feeding tube placement, as above.Interpreted by:LISETH Jacksonigned by:Carlo Santos MD01/11/17Final result Normal [facility] Basic Metabolic Profon 01-10 (cont.) Normal [facility] Comment on above: Result Comment: Aver age GFR for 40-49 years old: 99 mL/min/1.73sq mChronic Kidney Disease: <60 mL/min/1.73sq mKidney failure: <15 mL/min/1.73sq meGFR calculated using average adult body mass. Additional eGFR calculator available at:http://www.Projjix.com/multiple_crcl_2012.htmN[facility]wide [facility] [address] [place] [address] Performed By: #### C GHULAM BMP, TRIG ####[facility] Hbbyhvqllsyx9585 [place] [address] Anion gap 13 mmol/L Normal 9-17 [facility] Comment on above: Performed By: #### C GHULAM BMP, TRIG ####[facility] [address]fyv[address] [place] [address] Calcium 8.7 mg/dL Normal 8.6-10.4 [facility] Comment on above: Performed By: #### [place] PARMAR BMP, TRIG ####[facility] [address] [place] [address] Chloride 111 mmol/L High 98-107 [facility] Comment on above: Performed By: #### [place] PARMAR BMP, TRIG ####[facility] HospitalAseptiaKehqhmaniiud8[address] [place] [address] CO2 24 mmol/L Normal 20-31 [facility] Comment on above: Performed By: #### [place] PARMAR BMP, TRIG ####[facility] HospitalAseptiaKfsljexbxted[address] [place] [address] Creatinine 0.78 mg/dL Normal 0.70-1.20 [facility] Comment on above: Performed By: #### [place] PARMAR BMP, TRIG ####[facility] Mbezzyrhfjco5202 [place] [address] eGFR (non-black) mL/min/{1.73_m2} Normal >60 [facility] Comment on above: Performed By: #### [place] PARMAR BMP, TRIG ####[facility] Clqzwhdnwfoe0664 [place] [address] Glucose mass conc 167 mg/dL High 70-99 [facility] Comment on above: Performed By: #### [place] PARMAR BMP, TRIG ####[facility] [address]uf[address] [place] [address] Potassium molar conc 4.4 mmol/L Normal 3.7-5.3 [facility] Comment on above: Performed By: #### C BC, BMP, TRIG ####[facility] [address]mlmdroku2433 [place] [address] Sodium 148 mmol/L High 135-144 [facility] Comment on above: Performed By: #### C BC, BMP, TRIG ####[facility] [address]fur[address]ibhb9927 [place] [address] Urea nitrogen 26 mg/dL High 6-20 [facility] Comment on above: Performed By: #### C BC, BMP, TRIG ####[facility] F[address]dwqhgmnr4036 [place] [address] BUN/CRE Ratio NOT REPORTED Normal - [facility] Comment on above: Performed By: #### C BC, BMP, TRIG ####[facility] Y[address]cuvbbvkso1158 [place] [address] Staging: NOT REPORTED Normal [facility] Comment on above: Performed By: #### C BC, BMP, TRIG ####[facility] [address]ofa2256 [place] [address] CBCon 01-10-2017 Erythrocyte distribution width Auto Ratio (RBC) 13.8 % Normal 12.5-15.4 [facility] Comment on above: Performed By: #### C BC, BMP, TRIG ####[facility] Xbxemrnjsbxm4348 [place] [address] Erythrocytes (RBC) 3.39 10*6/uL Low 4.5-5.9 [facility] Comment on above: Performed By: #### C BC, BMP, TRIG ####[facility] U[address]mpwcbyekj[address]128 [place] [address] Hematocrit (HCT) 29.6 % Low 41-53 [facility] Comment on above: Performed By: #### C BC, BMP, TRIG ####[facility] Seacgnpumxju1757 [place] [address] Hemoglobin mass conc (Bld) 10.1 g/dL Low 13.5-17.5 [facility] Comment on above: Performed By: #### C BC, BMP, TRIG ####[facility] [address]fea54[address] [place] [address] MCH 29.7 pg Normal 26-34 [facility] Comment on above: Performed By: #### C BC, BMP, TRIG ####[facility] Jtbbooblfpwz6335 [place] [address] MCHC mass conc (RBC) 34.0 g/dL Normal 31-37 [facility] Comment on above: Performed By: #### C BC, BMP, TRIG ####[facility] [address]lwlnwejiy[address] [place] [address] MCV 87.5 fL Normal 80-100 [facility] Comment on above: Performed By: #### C BC, BMP, TRIG ####[facility] Tasyyyzruubu[address] [place] [address] Platelet mean volume (PMV) 8.5 fL Normal 6.0-12.0 [facility] Comment on above: Result Comment: [facility] [address] [place] [address] Performed By: #### C BC, BMP, TRIG ####[facility] [address]57[address] [place] [address] Platelets 816 10*3/uL High 140-450 [facility] Comment on above: Performed By: #### C BC, BMP, TRIG ####[facility] Rothou[address]wass[address] [place] [address] WBC (Leukocytes) 11.2 10*3/uL High 3.5-11.0 [facility] Comment on above: Performed By: #### C BC, BMP, TRIG ####[facility] HospitalAseptiaCrhkczkbhpnm1031 [place] [address] Basic Metabolic Profon 01-09 (cont.) Normal [facility] Comment on above: Result Comment: Aver age GFR for 40-49 years old: 99 mL/min/1.73sq mChronic Kidney Disease: <60 mL/min/1.73sq mKidney failure: <15 mL/min/1.73sq meGFR calculated using average adult body mass. Additional eGFR calculator available at:http://www.[employer].Primary Data/multiple_crcl_2012.htmThomas [place] [address] [place] [address] Performed By: #### C BC, BMP, TRIG ####[facility] HospitalAseptiaMtrvijmidphs[address] [place] [address] Anion gap 17 mmol/L Normal 9-17 [facility] Comment on above: Performed By: #### C BC, BMP, TRIG ####[facility] HospitalAseptiaYbjbmrbegxeo7177 [place] [address] Calcium 8.9 mg/dL Normal 8.6-10.4 [facility] Comment on above: Performed By: #### C BC, BMP, TRIG ####[facility] HospitalAseptiaWdlpwnnjfubl[address] [place] [address] Chloride 105 mmol/L Normal 98-107 [facility] Comment on above: Performed By: #### C BC, BMP, TRIG ####[facility] Momit Nbvajegbqngs9143 [place] [address] CO2 24 mmol/L Normal 20-31 [facility] Comment on above: Performed By: #### C BC, BMP, TRIG ####[facility] HospitalAseptiaQtgcgvgeaynf9661 [place] [address] Creatinine 0.80 mg/dL Normal 0.70-1.20 [facility] Comment on above: Performed By: #### C BC, BMP, TRIG ####[facility] Momit Hjoznousiqec9914 [place] [address] eGFR (non-black) mL/min/{1.73_m2} Normal >60 [facility] Comment on above: Performed By: #### C BC, BMP, TRIG ####[facility] Ndnmjhbfzbcj7620 [place] [address] Glucose mass conc 231 mg/dL High 70-99 [facility] Comment on above: Performed By: #### C BC, BMP, TRIG ####[facility] Irmnybgxgdmy3240 [place] [address] Potassium molar conc 4.9 mmol/L Normal 3.7-5.3 [facility] Comment on above: Performed By: #### C BC, BMP, TRIG ####[facility] HospitalAseptiaOprbpulhqppf[address] [place] [address] Sodium 146 mmol/L High 135-144 [facility] Comment on above: Performed By: #### C BC, BMP, TRIG ####[facility] HospitalAseptiaJdreufudztdm3031 [place] [address] Urea nitrogen 33 mg/dL High 6-20 [facility] Comment on above: Performed By: #### C BC, BMP, TRIG ####[facility] Momit Agtpzltuzhis8540 [place] [address] BUN/CRE Ratio NOT REPORTED Normal 9-20 [facility] Comment on above: Performed By: #### C BC, BMP, TRIG ####[facility] Zlnzoijxhhxu7122 [place] [address] Staging: NOT REPORTED Normal [facility] Comment on above: Performed By: #### C BC, BMP, TRIG ####[employer] [place] [address] CBCon 01-09-2017 Erythrocyte distribution width Auto Ratio (RBC) 13.4 % Normal 12.5-15.4 [facility] Comment on above: Performed By: #### C GHULAM BMP, TRIG ####[facility] V[address] [place] [address] Erythrocytes (RBC) 3.62 10*6/uL Low 4.5-5.9 [facility] Comment on above: Performed By: #### C GHULAM BMP, TRIG ####[facility] [address]faktvztedce[address] [place] [address] Hematocrit (HCT) 32.1 % Low 41-53 [facility] Comment on above: Performed By: #### C GHULAM BMP, TRIG ####[facility] Ftpkrviiqcit[address] [place] [address] Hemoglobin mass conc (Bld) 10.7 g/dL Low 13.5-17.5 [facility] Comment on above: Performed By: #### C GHULAM BMP, TRIG ####[facility] HospitalAseptiaVvlfvqxphalu5950[address] [place] [address]121 MCH 29.5 pg Normal 26-34 [facility] Comment on above: Performed By: #### C GHULAM BMP, TRIG ####[facility] Bofbhiemcbvq93[address] [place] [address] 16298 MCHC mass conc (RBC) 33.3 g/dL Normal 31-37 [facility] Comment on above: Performed By: #### C BC, BMP, TRIG ####[facility] Bllkjjqgtrmb2512 [place] [address] MCV 88.7 fL Normal 80-100 [facility] Comment on above: Performed By: #### C BC, BMP, TRIG ####[facility] HospitalAseptiaWkipeasgtigb5736[address] [place] [address] Platelet mean volume (PMV) 8.3 fL Normal 6.0-12.0 [facility] Comment on above: Result Comment: [facility] [employer] [address] [place] [address] Performed By: #### C MELANI PARMAR TRIG ####[facility] Drrpfmyylgog2643 [place] [address] Platelets 798 10*3/uL High 140-450 [facility] Comment on above: Performed By: #### MELANI TORRES, TRIG ####[facility] [address]okfghyqhgy[address] [place] [address] WBC (Leukocytes) 15.7 10*3/uL High 3.5-11.0 [facility] Comment on above: Performed By: #### MELANI TORRES, TRIG ####[facility] Zrqmicdhfmka[address] [place] [address] Basic Metabolic Profon 01-08 (cont.) Normal [facility] Comment on above: Result Comment: Aver age GFR for 40-49 years old: 99 mL/min/1.73sq mChronic Kidney Disease: <60 mL/min/1.73sq mKidney failure: <15 mL/min/1.73sq meGFR calculated using average adult body mass. Additional eGFR calculator available at:http://www.[employer]/multiple_crcl_2012.htmSouthern [facility] [address] [place] [address] Performed By: #### MELANI TORRES, TRIG ####[facility] [address]ljmerawtm[address] [place] [address] Anion gap 15 mmol/L Normal 9-17 [facility] Comment on above: Performed By: #### MELANI TORRES, TRIG ####[facility] Rrjdmbtbsrgv[address] [place] [address] Calcium 9.0 mg/dL Normal 8.6-10.4 [facility] Comment on above: Performed By: #### MELANI TORRES, TRIG ####[facility] Unseoiiembcy[address] [place] [address] Chloride 99 mmol/L Normal 98-107 [facility] Comment on above: Performed By: #### C BC, BMP, TRIG ####[facility] Ungkoglsqunh2628 [place] [address] CO2 26 mmol/L Normal 20-31 [facility] Comment on above: Performed By: #### C BC, BMP, TRIG ####[facility] Momit Wpqiwjsacpcj2488 [place] [address] Creatinine 0.80 mg/dL Normal 0.70-1.20 [facility] Comment on above: Performed By: #### C BC, BMP, TRIG ####[facility] Momit Inzaedrfatcs5619 [place] [address] eGFR (non-black) mL/min/{1.73_m2} Normal >60 [facility] Comment on above: Performed By: #### C BC, BMP, TRIG ####[facility] Wbjfjzlfeajw3968 [place] [address] Glucose mass conc 144 mg/dL High 70-99 [facility] Comment on above: Performed By: #### C BC, BMP, TRIG ####[facility] Ibxvghfoxahf9562 [place] [address] Potassium molar conc 4.2 mmol/L Normal 3.7-5.3 [facility] Comment on above: Performed By: #### C BC, BMP, TRIG ####[facility] Pdrgamxrjiqf1615 [place] [address] Sodium 140 mmol/L Normal 135-144 [facility] Comment on above: Performed By: #### C BC, BMP, TRIG ####[facility] Momit Yangztncqrbw4315 [place] [address] Urea nitrogen 28 mg/dL High 6-20 [facility] Comment on above: Performed By: #### C BC, BMP, TRIG ####[facility] AmaroRgtsjpkchhxc0487 [place] [address] BUN/CRE Ratio NOT REPORTED Normal 9-20 [facility] Comment on above: Performed By: #### C BC, BMP, TRIG ####[facility] AmaroLmwmqqqctavz8296 [place] [address] Staging: NOT REPORTED Normal [facility] Comment on above: Performed By: #### C BC, BMP, TRIG ####[facility] Pfkzqwvsanpa0410 [place] [address] CBCon 01-08-2017 Erythrocyte distribution width Auto Ratio (RBC) 13.8 % Normal 12.5-15.4 [facility] Comment on above: Performed By: #### C BC, BMP ####[address] [address] Erythrocytes (RBC) 3.37 10*6/uL Low 4.5-5.9 [facility] Comment on above: Performed By: #### C BC, BMP ####[facility] [address] [address] Hematocrit (HCT) 29.8 % Low 41-53 [facility] Comment on above: Performed By: #### C BC, BMP ####[facility] Tzuxtvntbney2037 [place] [address] Hemoglobin mass conc (Bld) 9.9 g/dL Low 13.5-17.5 [facility] Comment on above: Performed By: #### C BC, BMP ####[place] [address] [place] [address] MCH 29.3 pg Normal 26-34 [facility] Comment on above: Performed By: #### C BC, BMP ####[facility] [place] [address] MCHC mass conc (RBC) 33.2 g/dL Normal 31-37 [facility] Comment on above: Performed By: #### C BC, BMP ####[address] [address] MCV 88.4 fL Normal 80-100 [facility] Comment on above: Performed By: #### C BC, BMP ####[address] [address] Platelet mean volume (PMV) 8.3 fL Normal 6.0-12.0 [facility] Comment on above: Result Comment: [address] [address] Performed By: #### C GHULAM, BMP ####[address] [address] Platelets 802 10*3/uL High 140-450 [facility] Comment on above: Performed By: #### C GHULAM, BMP ####[address] [address] WBC (Leukocytes) 11.6 10*3/uL High 3.5-11.0 [facility] Comment on above: Performed By: #### C BC, BMP ####[address] [address] Basic Metabolic Profon 01-07 (cont.) Normal [facility] Comment on above: Result Comment: Aver age GFR for 40-49 years old: 99 mL/min/1.73sq mChronic Kidney Disease: <60 mL/min/1.73sq mKidney failure: <15 mL/min/1.73sq meGFR calculated using average adult body mass. Additional eGFR calculator available at:http://www.[employer].Primary Data/multiple_crcl_2012.htm[address] [address] Performed By: #### C GHULAM, BMP ####[address] [place] [address] Anion gap 15 mmol/L Normal 9-17 [facility] Comment on above: Performed By: #### C BC, BMP ####[facility] AmaroQdqnopsdsece4494 [place] [address] Calcium 9.3 mg/dL Normal 8.6-10.4 [facility] Comment on above: Performed By: #### C GHULAM, BMP ####[facility] AmaroWuzpzcyqxjmi9504 [place] [address] Chloride 97 mmol/L Low 98-107 [facility] Comment on above: Performed By: #### C GHULAM, BMP ####[facility] AmaroQfpevacjhygk5761 [place] [address] CO2 29 mmol/L Normal 20-31 [facility] Comment on above: Performed By: #### C GHULAM, BMP ####[facility] AmaroCzartetzkasr9228 [place] [address] Creatinine 0.97 mg/dL Normal 0.70-1.20 [facility] Comment on above: Performed By: #### C GHULAM, BMP ####[facility] AmaroHochmjwvmqtp1136 [place] [address] eGFR (non-black) mL/min/{1.73_m2} Normal >60 [facility] Comment on above: Performed By: #### C GHULAM, BMP ####[facility] AmaroYhcecwrwzpbp1421 [place] [address] Glucose mass conc 120 mg/dL High 70-99 [facility] Comment on above: Performed By: #### C GHULAM, BMP ####[facility] AmaroAzregbdfzoal7331 [place] [address] Potassium molar conc 4.3 mmol/L Normal 3.7-5.3 [facility] Comment on above: Performed By: #### C GHULAM, BMP ####[employer] [address] [place] [address] Sodium 141 mmol/L Normal 135-144 [facility] Comment on above: Performed By: #### C BC, BMP ####[employer] [address] [place] [address] Urea nitrogen 26 mg/dL High - [facility] Comment on above: Performed By: #### C BC, BMP ####[facility] AmaroMtkzetjfdhpb5341 [place] [address] BUN/CRE Ratio NOT REPORTED Normal - [facility] Comment on above: Performed By: #### C BC, BMP ####[facility] AmaroQdpkodmwltse9372 [place] [address] Staging: NOT REPORTED Normal [facility] Comment on above: Performed By: #### C GHULAM, BMP ####[facility] [address]aroCbttimcqojjk[address] [place] [address] CBCon 01-07-2017 Erythrocyte distribution width Auto Ratio (RBC) 13.7 % Normal 12.5-15.4 [facility] Comment on above: Performed By: #### C BC, BMP ####[facility] AmaroZvllqqlziari5994 [place] [address] Erythrocytes (RBC) 3.66 10*6/uL Low 4.5-5.9 [facility] Comment on above: Performed By: #### C BC, BMP ####[facility] AmaroQzzadwdpqbxe0237 [place] [address] Hematocrit (HCT) 32.3 % Low 41-53 [facility] Comment on above: Performed By: #### C BC, BMP ####[facility] AmaroTnkerbkvbfwc7643 [place] [address] Hemoglobin mass conc (Bld) 10.6 g/dL Low 13.5-17.5 [facility] Comment on above: Performed By: #### C BC, BMP ####[facility] Sbhrcdystvfe3931 [place] [address] MCH 29.0 pg Normal 26-34 [facility] Comment on above: Performed By: #### C BC, BMP ####[place] [place] [address] MCHC mass conc (RBC) 32.9 g/dL Normal 31-37 [facility] Comment on above: Performed By: #### C BC, BMP ####[facility] Hsenlsomamwd8983 [place] [address] MCV 88.2 fL Normal 80-100 [facility] Comment on above: Performed By: #### C BC, BMP ####[address] [address] Platelet mean volume (PMV) 8.3 fL Normal 6.0-12.0 [facility] Comment on above: Result Comment: [place] [address] [place] [address] Performed By: #### C GHULAM, BMP ####[address] [address] Platelets 793 10*3/uL High 140-450 [facility] Comment on above: Performed By: #### C BC, BMP ####[facility] [place] [address] WBC (Leukocytes) 11.8 10*3/uL High 3.5-11.0 [facility] Comment on above: Performed By: #### C BC, BMP ####[address] [address] [address] HEAD WO CONTRASTon 2016 CT HEAD WO CONTRAST EXAMINATION:CT OF THE HEAD WITHOUT CONTRAST 01/07/2017 11:25 amTECHNIQUE:CT of the head was performed without the administration of intravenouscontrast. Dose modulation, iterative reconstruction, and/or weight basedadjustment of the mA/kV was utilized to reduce the radiation dose to as lowas reasonably achievable.COMPARISON:Head CT from 12/28/2016HISTORY:ORDERING SYSTEM PROVIDED HISTORY: Follow upFINDINGS:Resolution BRAIN/VENTRICLES: There is no acute intracranial hemorrhage, masseffect or midline shift. No abnormal extra-axial fluid collection. There isresolution in the hyperdensity in the left temporal lobe, with similar extentof hypodensity in this region. Otherwise, the avila-white differentiation ismaintained without evidence of an acute infarct. There is no evidence ofhydrocephalus. There are stable relatively symmetric very mildperiventricular white matter hypodensities, most compatible with chronicischemic demyelination, in this age group.ORBITS: The visualized portion of the orbits demonstrate no acute abnormality.SINUSES: There is opacification of the majority of the bilateral mastoid aircells. There is near complete opacification of the incompletely visualizedleft maxillary and right frontal sinuses, and mucosal thickening of numerousethmoid air cells and the right maxillary sinus.SOFT TISSUES/SKULL: Resolution in the swelling/ edema in the scalp andfacial soft tissues. No acute abnormality of the visualized skull or softtissues. Incompletely visualized endotracheal and enteric tubes identified.IMPRESSION: 1. Resolution in the left temporal lobe acute intraparenchymal hemorrhagewith residual edema/contusion in this area.2. Resolution in the small subdural collection.3. Similar findings suggesting early chronic ischemic change.4. Similar sinus disease and nonspecific opacification of the bilateralmastoid air cells.Interpreted by:LISETH Cruzigned by:Kun Hager MD01/07/17Edited Result - FINAL Normal [facility] XR CHEST LIMITEDon 7 XR CHEST LIMITED EXAMINATION:SINGLE V IEW OF THE CHEST01/07/2017 3:52 pmCOMPARISON:Several priors, most recent 01/07/2017HISTORY:ORDERING SYSTEM PROVIDED HISTORY: ET tube placementTECHNOLOGIST PROVIDED HISTORY:Reason for exam:->ET tube placementSpine fractures, spine brace in placeFINDINGS:Monitor leads overlie the chest. Image quality is compromised by anoverlying brace. There is a cervical collar in place. The patient isintubated with endotracheal tube tip projecting approximately 4 cm above thecarina. Nasogastric tube tip is in the gas distended stomach. Prominentheart size. Mild patchy perihilar vascular crowding and atelectasisaccentuated by somewhat low lung volumes. Apparent right scapula fracturewith a small osseous fragment projecting below the glenoid re- demonstrated.IMPRESSION: Endotracheal tube tip appears to be approximately 4 cm above the sisi.Nasogastric tube tip within the gas distended stomach.Interpreted by:LISETH Jacksonigned by:Ayad Rodney MD01/07/17Edited Result - FINAL Normal [facility] XR CHEST PORTABLEon 01-08-20 XR CHEST PORTABLE EXAMINATION:SINGLE V IEW OF THE CHEST01/07/2017 6:10 amCOMPARISON:Chest x-ray from 01/06/2017HISTORY:ORDERING SYSTEM PROVIDED HISTORY: ventilated patientTECHNOLOGIST PROVIDED HISTORY:Reason for exam:->ventilated patientReason for exam:->Please remove brace before daily CXRFINDINGS:Endotracheal tube extends to the mid thoracic trachea approximately 4.9 cm ofthe sisi. Enteric tube courses below the diaphragm, distal tip notincluded.Slightly improved linear densities in the right upper lobe and retrocardiacand bilateral parahilar densities, with mild residual. No pleural effusion.Supine technique limits evaluation for pneumothorax, but no largepneumothorax identified. The cardiac silhouette appears mildly enlarged, butthere is no pulmonary vascular congestion. Similar irregularity of the rightscapula compatible with known scapular fracture. .IMPRESSION: 1. Similar positions of medical support devices.2. Improving right upper lobe, retrocardiac and perihilar densities with mildresidual.Interpreted by:LISETH Cruzigned by:Kun Hager MD01/07/17Final result Normal [facility] Basic Metabolic Profon 01-06 (cont.) Normal [facility] Comment on above: Result Comment: Aver age GFR for 40-49 years old: 99 mL/min/1.73sq mChronic Kidney Disease: <60 mL/min/1.73sq mKidney failure: <15 mL/min/1.73sq meGFR calculated using average adult body mass. Additional eGFR calculator available at:http://www.[employer].com/multiple_crcl_2012.htmNationwide [facility] [address] [place] [address] Performed By: #### C BC, BMP, TRIG ####[address] [place] [address] Anion gap 20 mmol/L High 9-17 [facility] Comment on above: Performed By: #### C BC, BMP, TRIG ####[facility] Umxdvzihyivt3054 [place] [address] Calcium 9.4 mg/dL Normal 8.6-10.4 [facility] Comment on above: Performed By: #### C BC, BMP, TRIG ####[facility] [address] [place] [address] Chloride 98 mmol/L Normal 98-107 [facility] Comment on above: Performed By: #### C BC, BMP, TRIG ####[facility] Hvvvegewblsk2116 [place] [address] CO2 25 mmol/L Normal 20-31 [facility] Comment on above: Performed By: #### C BC, BMP, TRIG ####[facility] HospitalAseptiaJkunpsmlujsa6434 [place] [address] Creatinine 1.09 mg/dL Normal 0.70-1.20 [facility] Comment on above: Performed By: #### C BC, BMP, TRIG ####[facility] Uznogsvnixpx3192 [place] [address] eGFR (non-black) mL/min/{1.73_m2} Normal >60 [facility] Comment on above: Performed By: #### C BC, BMP, TRIG ####[facility] Hnyahqgsetmy6112 [place] [address] Glucose mass conc 193 mg/dL High 70-99 [facility] Comment on above: Performed By: #### C BC, BMP, TRIG ####[facility] HospitalAseptiaUtxfdeunmlch0121 [place] [address] Potassium molar conc 4.3 mmol/L Normal 3.7-5.3 [facility] Comment on above: Performed By: #### C BC, BMP, TRIG ####[facility] HospitalAseptiaRaohwvtfpumm5814 [place] [address] Sodium 143 mmol/L Normal 135-144 [facility] Comment on above: Performed By: #### C BC, BMP, TRIG ####[facility] HospitalAseptiaEazdussrdvjp2889 [place] [address] Urea nitrogen 25 mg/dL High - [facility] Comment on above: Performed By: #### C BC, BMP, TRIG ####[employer] [place] [address] BUN/CRE Ratio NOT REPORTED Normal 03-31 [facility] Comment on above: Performed By: #### C BC, BMP, TRIG ####[facility] HospitalAseptiaCditchqwgwnb[address] [place] [address] Staging: NOT REPORTED Normal [facility] Comment on above: Performed By: #### C BC, BMP, TRIG ####[facility] HospitalAseptiaMtxiyooedils4354 [place] [address] CBCon 01-06-2017 Erythrocyte distribution width Auto Ratio (RBC) 14.3 % Normal 12.5-15.4 [facility] Comment on above: Performed By: #### C BC, BMP, TRIG ####[facility] HospitalAseptiaNjnhvukletfi6115 [place] [address] Erythrocytes (RBC) 3.44 10*6/uL Low 4.5-5.9 [facility] Comment on above: Performed By: #### C BC, BMP, TRIG ####[employer] [place] [address] Hematocrit (HCT) 30.3 % Low 41-53 [facility] Comment on above: Performed By: #### C BC BMP, TRIG ####[address] [address] Hemoglobin mass conc (Bld) 9.9 g/dL Low 13.5-17.5 [facility] Comment on above: Performed By: #### C BC, BMP, TRIG ####[facility] [address]avvlvorx[address] [place] [address] MCH 28.8 pg Normal 26-34 [facility] Comment on above: Performed By: #### C BC BMP, TRIG ####[facility] [address] [place] [address] MCHC mass conc (RBC) 32.7 g/dL Normal 31-37 [facility] Comment on above: Performed By: #### C BC BMP, TRIG ####[facility] [address] [place] [address] MCV 88.3 fL Normal 80-100 [facility] Comment on above: Performed By: #### C GHULAM BMP, TRIG ####[address] [address] Platelet mean volume (PMV) 8.5 fL Normal 6.0-12.0 [facility] Comment on above: Result Comment: [facility] [employer] [address] [place] [address] Performed By: #### C BC, BMP, TRIG ####[address] [address] Platelets 738 10*3/uL High 140-450 [facility] Comment on above: Performed By: #### C BC, BMP, TRIG ####[address] [address] WBC (Leukocytes) 11.5 10*3/uL High 3.5-11.0 [facility] Comment on above: Performed By: #### C GHULAM, MELANI, TRIG ####[employer] [place] [address] Triglycerideson 01-06-2017 Triglyceride 420 mg/dL High <150 [facility] Comment on above: Result Comment: Trig lyceride Guidelines: <150 Desirable 150- 199 Borderline 200-499 High >499 Very high Based on AHA Guidelines for fasting triglyceride, April 2012.[employer] [address] [place] [address] Performed By: #### C GHULAM, MELANI, TRIG ####[employer] [place] [address] XR CHEST PORTABLEon 01-07-20 17 XR CHEST PORTABLE EXAMINATION:SINGLE V IEW OF THE CHEST01/06/2017 5:50 amCOMPARISON:Chest x-ray from 01/05/2017. Chest CT from 12/28/2016HISTORY:ORDERING SYSTEM PROVIDED HISTORY: ventilated patientTECHNOLOGIST PROVIDED HISTORY:Reason for exam:->ventilated patientReason for exam:->Please remove brace before daily CXRFINDINGS:Endotracheal tube extends to the mid thoracic trachea approximate 5.1 cmabove the sisi. Enteric tube courses below the diaphragm, distal tip notincludedSimilar linear densities in the right upper lobe and minimal streaky densityin the retrocardiac space. Similar prominent perihilar densities,bilaterally. No new focal airspace consolidation, large pleural effusion orpneumothorax. Stable enlargement of cardiac silhouette. Similarincompletely visualized findings of right scapular fracture are betterdepicted on patient's chest CT from 12/28/2016. There are similarhypertrophic degenerative changes of the visualized spine.IMPRESSION: 1. Stable positions of medical support devices.2. Similar right upper lobe, retrocardiac and bilateral parahilar airspaceopacities. Continued radiographic follow-up is recommended.Interpreted by:LISETH Cruzigned by:Kun Hager MD01/06/17Final result Normal [facility] Vital Signs Date Time Vital Sign Value Performing Clinician Facility 12-30-2021 08:26-0400 Blood Pressure Location [facility] 12-30-2021 08:26-0400 Diastolic blood pressure 66 mm[Hg] [facility] 12-30-2021 08:26-0400 Heart rate 72 /min [facility] 12-30-2021 08:26-0400 Respiratory rate 16 /min [facility] 12-30-2021 08:26-0400 Systolic blood pressure 103 mm[Hg] [facility] 12-02-2021 08:18-0400 Blood Pressure Location [facility] 12-02-2021 08:18-0400 Diastolic blood pressure 80 mm[Hg] [facility] 12-02-2021 08:18-0400 Heart rate 79 /min [facility] 12-02-2021 08:18-0400 Respiratory rate 16 /min [facility]c [facility] Jr[facility] 12-02-2021 08:18-0400 Systolic blood pressure 127 mm[Hg] Oc Eugenio Pereira [facility] 11-18-2021 14:23-0400 Blood Pressure Location [facility] 11-18-2021 14:23-0400 Diastolic blood pressure 80 mm[Hg] [facility] 11-18-2021 14:23-0400 Heart rate 68 /min [facility] 11-18-2021 14:23-0400 Respiratory rate 16 /min [facility] 11-18-2021 14:23-0400 Systolic blood pressure 116 mm[Hg] [facility] 02-09-2019 14:22-0400 BMI (Body Mass Index) 31.02 kg/m2 Xochitlsepideh Matan [facility] Work Phone: 02-09-2019 14:22-0400 Body Temperature 97.9 [degF] Xochitlsepideh Matan [facility] Work Phone: Comment on above: Method: Temporal 02-09-2019 14:22-0400 Body weight 95.28 kg Xochitl Matan [facility] Work Phone: 02-09-2019 14:22-0400 BP Diastolic 106 mm[Hg] Xochitl Harman [facility] Work Phone: Comment on above: Position: Sitting 02-09-2019 14:22-0400 BP Systolic 164 mm[Hg] Xochitl Harman [facility] Work Phone: Comment on above: Position: Sitting 02-09-2019 14:22-0400 BSA (Body Surface Area) 2.11 m2 Xochitl Matan [facility] Work Phone: 02-09-2019 14:22-0400 Height 175.26 cm Xochitlsepideh Harman [facility] Work Phone: 02-09-2019 14:22-0400 Pulse (Heart Rate) 80 /min Xochitlsepideh Harman [facility]- [facility] [facility] Work Phone: 02-09-2019 14:22-0400 Pulse Oximetry 99 % Xochitl Harman [facility] Work Phone: Comment on above: Source: RA Encounters Encounter Date Encounter Type Care Provider Facility Start: 10-20-2023 End: 10-20-2023 ambulatory ROGERIO RAWLS Not Available Start: 08-11-2023 End: 08-11-2023 ambulatory ROGERIO RAWLS Not Available Start: 07-15-2023 End: 07-15-2023 ambulatory Jesus Lucas Facility:[facility] Start: 07-15-2023 End: 07-15-2023 Discharged Recurring MD Jesus Lucas Work Phone: [facility] [place] Start: 02-22-2023 End: 02-22-2023 ambulatory JUANJOSE FOSTER [facility] Start: 12-09-[address] JESUS LUCAS . Facili ty:[facility] Start: 12-02-2022 End: 12-02-2022 ambulatory RODNEY PEREZ Facility:[facility] Start: 11-27-2022 Encounter for other preprocedural examination RODNEY PEREZ [facility] Start: 11-23-2022 End: 11-24-[address] JESUS LUCAS . Facility:[facility] Start: 11-23-2022 End: 11-24-2022 Encounter for other preprocedural examination DR JESUS LUCAS . Facility:[facility] Start: 11-17-2022 End: 11-18-[address] JESUS LUCAS . Facility:[facility] Start: 11-12-2022 End: 11-13-2022 ambulatory RODNEY Dede [facility] Facility:[facility] Start: 11-10-2022 End: 11-11-[address] JESUS LUCAS . Facility:[facility] Start: 11-04-2022 End: 11-05-[address] JESUS LUCAS . Facility:[facility] Start: 10-27-2022 End: 10-28-[address] JESUS LUCAS . Facility:[facility] Start: 10-26-2022 End: 11-10-[address] JESUS LUCAS . Facility:[facility] Start: 10-22-2022 End: 10-23-[address] JESUS LUCAS . Facility:[facility] Start: 10-19-2022 End: 10-19-2022 ambulatory [facility] Start: 10-15-2022 End: 10-16-[address] JESUS LUCAS . Facility:[facility] Start: 10-12-2022 End: 10-13-[address] JESUS LUCAS . Facility:[facility] Start: 10-09-2022 End: 10-10-[address] JESUS LUCAS . Facility:[facility] Start: 09-25-2022 End: 09-26-[address] JESUS LUCAS . Facility:[facility] Start: 09-22-2022 End: 09-23-[address] JESUS LUCAS . Facility:[facility] Start: 09-18-2022 End: 09-19-[address] JESUS LUCAS . Facility:[facility] Start: 09-15-2022 End: 09-16-[address] JESUS LUCAS . Facility:[facility] Start: 09-11-2022 End: 09-12-[address] JESUS LUCAS . Facility:[facility] Start: 09-08-2022 End: 09-09-2022 ambulatory RODNEY LIAOANDER Facility:[facility] Start: 09-04-2022 End: 09-05-2022 ambulatory RODNEY LIAOANDER Facility:[facility] Start: 09-02-2022 End: 09-03-2022 ambulatory RODNEY LIAOANDER Facility:[facility] Start: 08-31-2022 End: 09-01-2022 ambulatory RODNEY LIAOANDER Facility:[facility] Start: 08-28-2022 End: 08-29-2022 ambulatory RODNEY PEREZ Facility:[facility] Start: 08-26-2022 End: 08-27-2022 ambulatory RODNEY PEREZ Facility:[facility] Start: 08-24-2022 End: 08-25-2022 ambulatory RODNEY LIAOANDER Facility:[facility] Start: 08-21-2022 End: 08-22-2022 ambulatory RODNEY PEREZ Facility:[facility] Start: 08-18-2022 End: 08-19-2022 ambulatory RODNEY PEREZ Facility:[facility] Start: 08-13-2022 End: 08-13-2022 ambulatory RODNEY PEREZ Facility:[facility] Start: 08-12-2022 Encounter for preprocedural laboratory examination RODNEY PEREZ [facility] Start: 08-12-[address] JESUS LUCAS . Facili ty:[facility] Start: 08-10-2022 End: 08-11-2022 ambulatory RODNEY PEREZ Facility:[facility] Start: 08-10-2022 End: 08-11-2022 Encounter for preprocedural laboratory examination RODNEY PEREZ Facility:[facility] Start: 08-07-2022 Encounter for preprocedural cardiovascular examination RODNEY PEREZ [facility] Start: 08-07-2022 Encounter for preprocedural laboratory examination RODNEY PEREZ [facility] Start: 08-05-2022 End: 08-06-2022 ambulatory RODNEY PEREZ Facility:[facility] Start: 08-05-2022 End: 08-06-2022 Encounter for preprocedural cardiovascular examination RODNEY PEREZ Facility:[facility] Start: 07-24-2022 End: 07-24-2022 ambulatory RODNEY PEREZ Facility:[facility] Start: 07-24-2022 End: 07-25-2022 ambulatory RODNEY PEREZ Facility:[facility] Start: 07-21-2022 End: 07-22-[address] JESUS LUCAS . Facility:[facility] Start: 07-20-2022 End: [facility] 07-14-[facility] End: 07-15-2022 ambulatory RODNEY PEREZ Facility:[facility] Start: 06-29-2022 End: 06-30-2022 ambulatory RODNEY PEREZ Facility:[facility] Start: 06-16-2022 End: 06-17-2022 ambulatory RODNEY PEREZ Facility:[facility] Start: 06-11-2022 End: 06-12-2022 ambulatory JUANJOSE [facility] Start: 06-10-2022 End: 06-11-2022 ambulatory RODNEY PEREZ Facility:[facility] Start: 05-29-2022 End: 05-30-2022 ambulatory RODNEY PEREZ Facility:[facility] Start: 05-25-2022 End: 05-26-[address] JESUS LUCAS . Facility:[facility] Start: 05-22-2022 End: 05-23-2022 ambulatory RODNEY PEREZ Facility:[facility] Start: 05-18-2022 End: [facility]: 05-15-2022 End: 05-16-2022 ambulatory RODNEY PEREZ Facility:[facility] Start: 04-27-2022 End: 04-28-2022 ambulatory RODNEY PEREZ Facility:[facility] Start: 04-24-2022 End: 04-25-2022 ambulatory ARAM CRANDALL Facility:[facility] Start: 04-17-2022 End: 04-18-2022 ambulatory RODNEY PEREZ Facility:[facility] Start: 03-31-2022 End: 04-01-[address] JESUS LUCAS . Facility:[facility] Start: 03-30-2022 End: 03-31-2022 ambulatory RODNEY PEREZ Facility:[facility] Start: 03-26-2022 End: 03-27-[address] JESUS LUCAS . Facility:[facility] Start: 03-18-2022 End: 03-19-[address] JESUS LUCAS . Facility:[facility] Start: 03-17-2022 End: 03-17-2022 ambulatory MD Jesus Lucas Work Phone: [facility] Work Phone: Start: 03-17-2022 End: 03-17-2022 Discharged Recurring MD Jesus Lucas Work Phone: [facility] [place] Start: 03-05-2022 End: 03-06-[address] JESUS LUCAS . Facility:[facility] Start: 01-06-2022 End: 01-07-[address] JESUS LUCAS . Facility:[facility] Start: 12-31-2021 End: 12-31-[address] JESUS LUCAS . Facility:[facility] Start: 12-30-2021 End: 12-30-2021 Patient encounter procedure Oc Becker Jr. [facility] Start: 12-27-2021 End: 12-28-[address] JESUS LUCAS . Facility:[facility] Start: 12-02-2021 End: 12-02-2021 Patient encounter procedure Oc Becker Jr. [facility] Start: 11-18-2021 End: 11-18-2021 Patient encounter procedure [facility] Start: 02-09-2019 Patient encounter procedure Xochitl Kimani OO-Bdulbkpecnkhev-F [facility] Work Phone: Start: 11-22-2018 Patient encounter procedure Xochitl Marjan SP-Emagpnrtlzeofp-O [facility] Work Phone: Start: 02-10-2018 Patient encounter procedure Xochitl Marjan PL-Lhopspgemiejju-Y [facility] Work Phone: Start: 05-06-2017 Patient encounter procedure Xochitl Marjan AU-Vmfebezxkjzjyu-N [facility] Work Phone: Start: 04-19-2017 Patient encounter procedure Xochitl Harman CO-Eawiehrkqmvzrf-I [facility] Work Phone: Start: 04-01-2017 Patient encounter procedure Xochitl SCHAEFERMJ-Rbuuktbzvrfxjw-G [facility] Work Phone: Start: 03-16-2017 Patient encounter procedure Xochitl SCHAEFERWI-Vjmujqiwrwymmw-A [facility] Work Phone: Start: 03-10-2017 End: 03-11-2017 Ambulatory JULIETTE RAMOS [facility] Procedures Date Procedure Procedure Detail Performing Clinician Start: 02-09-2019 CT Neck without Contrast Xochitl Harman Start: 03-10-2017 Ct thoracic spine w/o contrast material GANGAM RACHEL Start: 03-10-2017 Ct cervical spine w/o contrast material KEMIIAM RACHEL Start: 03-10-2017 Esophagogastroduodenoscopy Chapo ROYL Start: 03-10-2017 Percutaneous endoscopic gastrostomy Chapo NILL Start: 03-07-2010 Chondrectomy of semilunar cartilage of knee Chapo NILL Arthroscopically aid ed anterior cruciate ligament reconstruction Chap[facility] NILL Dilation of esophagus Tru ROYL History of Feeding Tube Jimmy Benton History of Knee Surgery Jimmy Benton Payers Date Payer Category Payer Self-pay [id number] 2022 Medicaid [id number] 2016 Unknown [id number] 1970 Unknown [id number] 2.16.84 0.1.512656.3.579.2.593 1969 Unknown [id number] 2.16.84 0.1.170890.3.579.2.593 1969 Unknown [id number] 2.16.84 0.1.867299.3.579.2.593 1969 Unknown [id number] 2.16.84 0.1.919729.3.579.2.593 1969 Unknown [id number] 2.16.84 0.1.868786.3.579.2.593 1969 Unknown [id number] 2.16.84 0.1.457258.3.579.2.593 1969 Unknown [id number] 2.16.84 0.1.732827.3.579.2.593 1969 Unknown [id number] 2.16.84 0.1.008100.3.579.2.593 1969 Unknown [id number] 2.16.84 0.1.420486.3.579.2.593 1969 Unknown [id number] 2.16.84 0.1.091493.3.579.2.593 1969 Unknown [id number] 2.16.84 0.1.529201.3.579.2.593 1969 Unknown [id number] 2.16.84 0.1.016284.3.579.2.593 1969 Unknown [id number] 2.16.84 0.1.872375.3.579.2.593 1969 Unknown [id number] 2.16.84 0.1.265376.3.579.2.593 1969 Unknown [id number] 2.16.84 0.1.162672.3.579.2.593 1969 Unknown [id number] 2.16.84 0.1.532887.3.579.2.593 1969 Unknown [id number] 2.16.84 0.1.390881.3.579.2.593 1969 Unknown [id number] 2.16.84 0.1.707977.3.579.2.593 1969 Unknown [id number] 2.16.84 0.1.447295.3.579.2.593 1969 Unknown [id number] 2.16.84 0.1.357166.3.579.2.593 1969 Unknown [id number] 2.16.84 0.1.928610.3.579.2.593 1969 Unknown [id number] 2.16.84 0.1.309200.3.579.2.593 1969 Unknown [id number] 2.16.84 0.1.402589.3.579.2.593 1969 Unknown [id number] 2.16.84 0.1.215146.3.579.2.593 1969 Unknown [id number] 2.16.84 0.1.537833.3.579.2.593 1969 Unknown [id number] 2.16.84 0.1.092733.3.579.2.593 1969 Unknown [id number] 2.16.84 0.1.429666.3.579.2.593 1969 Unknown [id number] 2.16.84 0.1.197847.3.579.2.593 1969 Unknown [id number] 2.16.84 0.1.174859.3.579.2.593 1969 Unknown [id number] 2.16.84 0.1.501610.3.579.2.593 1969 Unknown [id number] 2.16.84 0.1.430464.3.579.2.593 1969 Unknown [id number] 2.16.84 0.1.657584.3.579.2.593 1969 Unknown [id number] 2.16.84 0.1.600149.3.579.2.593 1969 Unknown [id number] 2.16.84 0.1.505353.3.579.2.593 1969 Unknown [id number] 2.16.84 0.1.373311.3.579.2.593 1969 Unknown [id number] 2.16.84 0.1.859030.3.579.2.593 1969 Unknown [id number] 2.16.84 0.1.863349.3.579.2.593 1969 Unknown [id number] 2.16.84 0.1.304100.3.579.2.593 1969 Unknown [id number] 2.16.84 0.1.541409.3.579.2.593 1969 Unknown [id number] 2.16.84 0.1.501403.3.579.2.593 1969 Unknown [id number] 2.16.84 0.1.098422.3.579.2.593 1969 Unknown [id number] 2.16.84 0.1.903814.3.579.2.593 1969 Unknown [id number] 2.16.84 0.1.052310.3.579.2.593 1969 Unknown [id number] 2.16.84 0.1.195633.3.579.2.593 1969 Unknown [id number] 2.16.84 0.1.634653.3.579.2.593 1969 Unknown [id number] 2.16.84 0.1.355637.3.579.2.593 1969 Unknown [id number] 2.16.84 0.1.318224.3.579.2.593 1969 Unknown [id number] 2.16.84 0.1.967200.3.579.2.593 1969 Unknown [id number] 2.16.84 0.1.903460.3.579.2.593 1969 Unknown [id number] 2.16.84 0.1.557389.3.579.2.593 1969 Unknown [id number] 2.16.84 0.1.341099.3.579.2.593 1969 Unknown [id number] 2.16.84 0.1.732694.3.579.2.593 1969 Unknown [id number] 2.16.84 0.1.366315.3.579.2.593 1969 Unknown [id number] 2.16.84 0.1.533305.3.579.2.593 1969 Unknown [id number] 2.16.84 0.1.042255.3.579.2.1259 1969 Unknown [id number] 2.16.84 0.1.265458.3.579.2.1259 1960 Medicaid [id number] Unknown [id number] 2.16.8 40.1.867382.3.579.2.531 Social History Date Type Detail Facility Assertion Unknown if ever smoked AR-Uktmmvpfzsxydq-Lbxqf [facility] Work Phone: Start: 11-18-2021 End: 12-30-2021 Tobacco smoking status Never smoked tobacco (finding) [facility] Tobacco smoking status Never [facility] Sex Assigned At Male [facility] Start: 1970 Sex Assigned At Male F [facility] Medical Equipment Procedure Code Equipment Code Equipment Origin al Text Equipment Identifier Dates OneTouch Delica Lancets Fine Quantity: 100 Refills: 0 DO Start : 13-Dec-2018 Active Start: 12-13-2018 OneTouch Ultra B lue In Vitro Strip Quantity: 25 Refills: 0 DO Start : 13-Dec-2018 Active Start: 12-13-2018 OneTouch Delica Lancets Fine Quantity: 100 Refills: 0 Start : 13-Dec-2018 Active Start: 12-13-2018 OneTouch Ultra B lue In Vitro Strip Quantity: 25 Refills: 0 Start : 13-Dec-2018 Active Start: 12-13-2018 Functional Status Date Assessment Result Facility 12-30-2021 Functional Status N/A [facility] NEGATED: Highlighted row Functional performance Functional status health issues are not documented Disease XJ-Xzrwitikuvuvbx-Kw [facility] Work Phone: Mental Status Date Assessment Result Facility NEGATED: Highlighted row Cognitive function [Interpretation] Cognitive status health issues are not documented Disease GJ-Znhurjjqbjjhvw-X [facility] Work Phone: Clinical Notes 11-18-2021 to 02-22-2023 Note Date & Type Note Facility 02-22-2023 Note ---- Attestation signed by Juanjose Foster MD at 03/07/2023 12:10 PM As the teaching physician, I have personally performed or re-performed the history of present illness, physical exam and medical decision making activities of the encounter and verified the medical student's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 Status Records FoundNo Status Records FoundNo Status Records FoundNo Status Records FoundNo Status Records FoundNo Status Records FoundNo Status Records FoundNo Status Records FoundNo Status Records FoundNo Status Records Found INFORMATION SOURCE (unrecogn ized section and content) DATE CREATED AUTHOR 01/05/2018 [facility] DATE CREATED AUTHOR AUTHOR'S ORGANIZ ATION 02/11/2019 [employer] DATE CREATED AUTHOR AUTHOR'S ORGANIZ ATION 04/15/2019 [facility] DATE CREATED AUTHOR AUTHOR'S ORGANIZ ATION 01/11/2022 [facility] DATE CREATED AUTHOR AUTHOR'S ORGANIZ ATION 12/18/2022 [facility] [place] [facility] DATE CREATED AUTHOR AUTHOR'S ORGANIZ ATION 03/07/2023 [facility] DATE CREATED AUTHOR AUTHOR'S ORGANIZ ATION 07/19/2023 [facility] DATE CREATED AUTHOR AUTHOR'S ORGANIZ ATION 10/21/2023 [facility] Care Team (unrecognized sect ion and content) Team Status: Active Member Role Status Dates Jesus Lucas MD Primary Care Provider Active Team Status: Inactive Member Role Status Dates Jesus Lucas MD Primary Care Provider, Attending Pr jose Active Goals (unrecognized section and content) Goals may be documented in a n alternate section FOR RECORDS PERTAINING TO PATIENTS WHO ARE OR HAVE BEEN ENROLLED IN A CHEMICAL DEPENDENCY/SUBSTANCEABUSE PROGRAM, SOME INFORMATION MAY BE OMITTED. This clinical summary was aggregated from multiple sources. Caution should be exercised in using it in the provision of clinical care. This summary normalizes information from multiple sources, and as a consequence, information in this document may materially change the coding, format and clinical context of patient data. In addition, data may be omitted in some cases. CLINICAL DECISIONS SHOULD BE BASED ON THE PRIMARY CLINICAL RECORDS. [facility] [employer] [facility]. provides no warranty or guarantee of the accuracy or completeness of information in this document.
[2023-10-29 11:48] LABS: Basophils Absolute Auto 0.1 10^3/uL (0.0-0.1); Basophils Percent Auto 0.9 % (0.2-2.0); Eosinophils Absolute Auto 0.5 10^3/uL (0.0-0.7); Eosinophils Percent Auto 4.9 % (0.9-7.0); Hemoglobin 12.8 g/dL (14.0-18.0); Immature Granulocytes Abs Auto 0.06 10^3/uL (0.00-0.03); Immature Granulocytes Pct Auto 0.6 % (0.0-0.5); Lymphocytes Absolute Auto 1.7 10^3/uL (1.2-3.8); Lymphocytes Percent Auto 16.8 % (20.5-60.0); Mean Corpuscular Hemoglobin 29.2 pg (25.9-34.0); Mean Corpuscular Volume 91.1 fL (80.0-94.0); Mean Platelet Volume 10.7 fL (9.5-13.5); Monocytes Absolute Auto 0.7 10^3/uL (0.3-0.8); Monocytes Percent Auto 6.8 % (1.7-12.0); Neutrophils Absolute Auto 7.3 10^3/uL (1.4-6.5); Platelet Count 307 10^3/uL (150-450); Red Blood Count 4.39 10^6/uL (4.70-6.10); Red Cell Distribution Width 13.7 % (11.0-15.0); White Blood Count 10.4 10^3/uL (4.0-11.0)
[2023-10-29 12:15] LABS: Alanine Aminotransferase 38 U/L (16-63); Albumin Globulin Ratio 0.8; Albumin Level 3.6 g/dL (3.4-5.0); Alkaline Phosphatase 81 U/L (46-116); Anion Gap 14.4; Aspartate Amino Transferase 12 U/L (15-37); BUN Creatinine Ratio 16.6; Bilirubin Total 0.5 mg/dL (0.2-1.0); Calcium 8.7 mg/dL (8.5-10.1); Carbon Dioxide 27.7 mmol/L (21.0-32.0); Chloride 98 mmol/L (98-107); Cholesterol 252 mg/dL (<=200); Estimated GFR (African America 52 (>=60); Estimated GFR (Non-African Ame 42 (>=60); Globulin 4.3 g/dL; Glucose 180 mg/dL (74-106); HDL Cholesterol 42 mg/dL (40-60); Potassium 5.1 mmol/L (3.5-5.1); Sodium 135 mmol/L (136-145); Thyroid Stimulating Hormone 0.923 uIU/mL (0.358-3.740); Total Protein 7.9 g/dL (6.4-8.2); Triglycerides 446 mg/dL (<=150); VLDL CHOLESTEROL 89.2 mg/dL
[2023-10-29 12:16] LABS: LDL Cholesterol Direct 125 mg/dL
[2023-10-29 12:35] LABS: Prostate Specific Antigen Scrn 1.01 ng/mL (<=4.00)
[2023-10-29 13:04] LABS: Estimated Average Glucose 177 mg/dL; Glycohemoglobin A1C 7.8 % (4.5-6.2)
== END 2023-10-29 10:46 | disposition home or self-care (01) ==
LOC: US 10:45
PROVIDERS: PCP Family Medicine; Visit Provider Family Medicine
DX: Z00.00 Encounter for general adult medical examination without abnormal findings (principal); Z12.5 Encounter for screening for malignant neoplasm of prostate; N32.0 Bladder-neck obstruction
CPT/HCPCS: 36415; 76770; 80053; 80061; 83036; 83721; 84436; 84443; 84481; 85025; G0103

== ENCOUNTER 2024-01-18 10:33 | Outpatient (OUT) | payer MEDICAID, SELFPAY ==
[2024-01-18 11:46] LABS: Free T3 1.61 pg/mL (2.18-3.98); Thyroid Stimulating Hormone 1.902 uIU/mL (0.358-3.740)
[2024-01-18 12:03] LABS: Free T4 0.79 ng/dL (0.76-1.46)
== END 2024-01-18 10:34 | disposition home or self-care (01) ==
PROVIDERS: PCP Family Medicine; Visit Provider Family Medicine
DX: E03.9 Hypothyroidism, unspecified (principal)
CPT/HCPCS: 36415; 84439; 84443; 84481

== ENCOUNTER 2024-02-23 13:45 | Outpatient (OUT) | payer MEDICAID, SELFPAY ==
[2024-02-23 14:58] LABS: Free T3 1.66 pg/mL (2.18-3.98); Thyroid Stimulating Hormone 0.486 uIU/mL (0.358-3.740)
== END 2024-02-23 13:46 | disposition home or self-care (01) ==
LOC: LAB 13:45
PROVIDERS: PCP Family Medicine; Visit Provider Family Medicine
DX: E03.9 Hypothyroidism, unspecified (principal)
CPT/HCPCS: 36415; 84436; 84443; 84481

== ENCOUNTER 2024-03-28 10:35 | Outpatient (OUT) | payer MEDICAID, SELFPAY ==
--- OUTSIDE RECORDS SUMMARY | 2024-03-28 10:46 | XMS_ITS | CCD ---
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 Result 1 Comment Normal [facility] Comment on above: Result Comment: CARL/ Calcofluor preparation: no fungus observed. Performed By: #### C XFUN #### [facility] [address] [place] [address] Dr. Kevin Vale CULTURE ANAEROBICon 12-03-19 23 CULTURE ANAEROBIC Culture Observations : NO GROWTH AT 72 HRS. Normal [facility] Comment on above: Performed By: #### C BC #### [facility] [address] [place] [address] Dr. Kevin Vale GRAM STAINon 12-02-2022 COMMENTS NO ORGANISMS OBSERVED Normal [facility] Comment on above: Performed By: #### G STAIN #### [facility] [address] [place] [address] Dr. Kevin Vale DIPHTHEROIDS Normal [facility] Comment on above: Performed By: #### G STAIN #### [facility] [address] [place] [address] Dr. Kevin Vale EPITHELIALS Normal [facility] Comment on above: Performed By: #### G STAIN #### [facility] [address] [place] [address] Dr. Kevin Vale FUNGAL ELEMENTS Normal [facility] Comment on above: Performed By: #### G STAIN #### [facility] [address] [place] [address] Dr. Kevin ECHOLS NEG BACILLI Normal [facility] Comment on above: Performed By: #### G STAIN #### [facility] [address] [place] [address] Dr. Kevin ECHOLS NEG DIPPLOCOCCI Normal [facility] Comment on above: Performed By: #### G STAIN #### [facility] [address] [place] [address] Dr. Kevin Vale GRAM POS BACILLI Normal [facility] Comment on above: Performed By: #### G STAIN #### [facility] [address] [place] [address] Dr. Kevin Vale GRAM POSITIVE COCCI Normal [facility] Comment on above: Performed By: #### G STAIN #### [facility] [address] [place] [address] Dr. Kevin Vale GRAM STAIN SOURCE Lt First Metatarsal Normal [facility] Comment on above: Performed By: #### G STAIN #### [facility] [address] [place] [address] Dr. Kevin Vale GS_DIPTH Normal [facility] Comment on above: Performed By: #### G STAIN #### [facility] [address] [place] [address] Dr. Kevin Vale WBC RARE Normal [facility] Comment on above: Performed By: #### G STAIN #### [facility] [address] [place] [address] Dr. Kevin Vale POINT OF CARE GLUCOSEon 11-10 Glucose [Mass/Vol] 132 mg/dL Critically high 74-106 [facility] Comment on above: Performed By: #### G STAIN #### [facility] [address] [place] [address] Dr. Kevin Vale CBC AUTO DIFFon 11-12-2022 BASO # 0.1 103/ul Normal 0.0-0.1 [facility] Comment on above: Performed By: #### C BC #### [facility] [address] [place] [address] Dr. Kevin Vale Basophils/100 WBC (Bld) 0.6 % Normal 0.2-2.0 [facility] Comment on above: Performed By: #### C BC #### [facility] [address] [place] [address] Dr. Kevin Vale EO # 0.4 103/ul Normal 0.0-0.7 [facility] Comment on above: Performed By: #### C BC #### [facility] [address] [place] [address] Dr. Kevin Vale Eosinophils/100 WBC (Bld) 3.4 % Normal 0.9-7.0 [facility] Comment on above: Performed By: #### C BC #### [facility] [address] [place] [address] Dr. Kevin Vale Erythrocyte distribution width (RBC) [Ratio] 15.1 % Critically high 11.0-15.0 [facility] Comment on above: Performed By: #### C BC #### [facility] [address] [place] [address] Dr. Kevin Vale Hematocrit (Bld) [Volume fraction] 38.3 % Critically low 42.0-54.0 [facility] Comment on above: Performed By: #### C BC #### [facility] [address] [place] [address] Dr. Kevin Vale Hemoglobin (Bld) [Mass/Vol] 11.8 g/dL Critically low 14.0-18.0 [facility] Comment on above: Performed By: #### C BC #### [facility] [address] [place] [address] Dr. Kevin Vale IG # 0.05 10e3/ul Critically high 0.00-0.03 [facility] Comment on above: Performed By: #### C BC #### [facility] [address] [place] [address] Dr. Kevin Vale IG % 0.4 % Normal 0.0-0.5 [facility] Comment on above: Performed By: #### C BC #### [facility] [address] [place] [address] Dr. Kevin Vale LYMPH # 2.1 103/ul Normal 1.2-3.8 [facility] Comment on above: Performed By: #### C BC #### [facility] [address] [place] [address] Dr. Kevin Vale Lymphocytes/100 WBC (Bld) 18.2 % Critically low 20.5-60.0 [facility] Comment on above: Performed By: #### C BC #### [facility] [address] [place] [address] Dr. Kevin Vale MANUAL DIFF REQ NO Normal [facility] Comment on above: Performed By: #### C BC #### [facility] [address] [place] [address] Dr. Kevin Vale MCH (RBC) [Entitic mass] 27.4 pg Normal 25.9-34.0 [facility] Comment on above: Performed By: #### C BC #### [facility] [address] [place] [address] Dr. Kevin Vale MCHC (RBC) [Mass/Vol] 30.8 g/dL Normal 29.9-35.2 [facility] Comment on above: Performed By: #### C BC #### [facility] [address] [place] [address] Dr. Kevin Vale MCV (RBC) [Entitic vol] 89.1 fL Normal 80.0-94.0 [facility] Comment on above: Performed By: #### C BC #### [facility] [address] [place] [address] Dr. Kevin Vale MONO # 0.8 103/ul Normal 0.3-0.8 [facility] Comment on above: Performed By: #### C BC #### [facility] [address] [place] [address] Dr. Kevin Vale Monocytes/100 WBC (Bld) 7.1 % Normal 1.7-12.0 [facility] Comment on above: Performed By: #### C BC #### [facility] [address] [place] [address] Dr. Kevin Vale NEUT # 8.1 103/ul Critically high 1.4-6.5 [facility] Comment on above: Performed By: #### C BC #### [facility] [address] [place] [address] Dr. Kevin Vale Neutrophils/100 WBC (Bld) 70.3 % Normal 43.0-75.0 [facility] Comment on above: Performed By: #### C BC #### [facility] [address] [place] [address] Dr. Kevin Vale Platelet mean volume (Bld) [Entitic vol] 10.1 fL Normal 9.5-13.5 [facility] Comment on above: Performed By: #### C BC #### [facility] [address] [place] [address] Dr. Kevin Vale PLT 352 103/ul Normal 150-450 [facility] Comment on above: Performed By: #### C BC #### [facility] [address] [place] [address] Dr. Kevin Vale RBC 4.30 106/ul Critically low 4.70-6.10 [facility] Comment on above: Performed By: #### C BC #### [facility] [address] [place] [address] Dr. Kevin Vale WBC 11.5 103/ul Critically high 4.0-11.0 [facility] Comment on above: Performed By: #### C BC #### [facility] [address] [place] [address] Dr. Kevin Vale CRPon 11-12-2022 CRP 1.9 mg/dL Critically high <=1.0 [facility] Comment on above: Performed By: #### G STAIN #### [facility] [address] [place] [address] Dr. Kevin Vale PROF CHEM 8 (BAS METB)on Anion gap [Moles/Vol] 14.8 mmol/L Normal [facility] Comment on above: Performed By: #### G STAIN #### [facility] [address] [place] [address] Dr. Kevin Vale Calcium [Mass/Vol] 9.5 mg/dL Normal 8.5-10.1 [facility] Comment on above: Performed By: #### G STAIN #### [facility] [address] [place] [address] Dr. Kevin Vale Chloride [Moles/Vol] 100 mmol/L Normal 98-107 [facility] Comment on above: Performed By: #### G STAIN #### [facility] [address] [place] [address] Dr. Kevin Vale CO2 [Moles/Vol] 26.8 mmol/L Normal 21.0-32.0 [facility] Comment on above: Performed By: #### G STAIN #### [facility] [address] [place] [address] [address] Kevin Vale Creatinine [Mass/Vol] 1.57 mg/dL Critically high 0.70-1.30 [facility] Comment on above: Performed By: #### G STAIN #### [facility] [address] [place] [address] [address] Kevin Vale EGFR-AF MALAGASY 56 mL/min/1.73m2 Critically low >=60 [facility] Comment on above: Performed By: #### G STAIN #### [facility] [address] [place] [address] [address] Kevin Vale EGFR-NON AF MALAGASY 46 mL/min/1.73m2 Critically low >=60 [facility] Comment on above: Performed By: #### G STAIN #### [facility] [address] [place] [address] [address] Kevin Vale Glucose [Mass/Vol] 191 mg/dL Critically high 74-106 [facility] Comment on above: Performed By: #### G STAIN #### [facility] [address] [place] [address] [address] Kevin Vale Potassium [Moles/Vol] 4.6 mmol/L Normal 3.5-5.1 [facility] Comment on above: Performed By: #### G STAIN #### [facility] [address] [place] [address] [address] Kevin Vale Sodium [Moles/Vol] 137 mmol/L Normal 136-145 [facility] Comment on above: Performed By: #### G STAIN #### [facility] [address] [place] [address] [address] Kevin Vale Urea nitrogen [Mass/Vol] 27.0 mg/dL Critically high 7.0-18.0 [facility] Comment on above: Performed By: #### G STAIN #### [facility] [address] [place] [address] [address] Kevin Vale Urea nitrogen/Creatinin e [Mass ratio] 17.2 mg/mg Normal [facility] Comment on above: Performed By: #### G STAIN #### [facility] [address] [place] [address] [address] Kevin Vale SED RATE WESTERGRENon 2022 SED RATE 56 mm/hr Critically high <=20 [facility] Comment on above: Performed By: #### S EDR #### [facility] [address] [place] [address] [address] Kevin Vale Follow-Upon 10-19-2022 Follow-Up [id number] Ja Hawkins tt 1970 M Date Provider Department Center 10/19/2022 JUANJOSE CRAIG [facility] SUR[facility] [place] Family History Problem Relation Age of Onset Cancer Mother Heart attack Father Family Status - Relation Status Age at Mother Father Level of Service:89887 [facility] OFFICE/OUTPATIENT ESTABLISHED LOW MDM 20-29 MIN Reason for Visit and Comments: Follow-up [973898] - Pt is here for a 3 month follow up for drop foot. Normal [facility] Telephoneon 08-14-2022 Telephone [id number] Ja Hawkins tt 1970 M Date Provider Department Center 08/14/2022 SARAH REICH HVC WOUND [facility] Family History Problem Relation Age of Onset Cancer Mother Heart attack Father Family Status - Relation Status Age at Mother Father Normal [facility] XR FOOT LT 2Von 08-14-2022 XR FOOT LT 2V EXAM: XR FOOT LT 2V HISTORY: Pain COMPARISON: 04/13/2022 TECHNIQUE: 2 seconds of fluoroscopy. Single image FINDINGS: Single lateral image demonstrates resection of the first metatarsal sesamoids with soft tissue defect IMPRESSION: Images demonstrating first metatarsal sesamoid resection Electronically authenticated by: KYE MCINTOSH Date: 2022-08-14 08:18 Normal [facility] POINT OF CARE GLUCOSEon Glucose [Mass/Vol] 172 mg/dL Critically high 74-106 T [facility] Comment on above: Performed By: #### S EDR #### [facility] [address] [place] [address] [address] Kevin Vale Covid-19 PCR (CVDTB)on 07-14 SARS-CoV-2 (COVID-19) RNA LASHAY+probe Ql (Unsp spec) Not detected Normal NOT DETECTED [facility] Comment on above: Result Comment: This test is not yet approved or cleared by the [place] FDA. When there are no FDA-approved or cleared tests available, and other criteria are met, FDA can make tests available under an emergency access mechanism called an Emergency Use Authorization (EUA). The EUA for this test is supported by the [employer] of Health and Human Service's (HHS's) declaration [...] SARS-CoV-2. Performed By: #### S EDR #### [facility] [address] [place] [address] Dr. Kevin Vale PROF CHEM 8 (BAS METB)on Anion gap [Moles/Vol] 15.0 mmol/L Normal [facility] Comment on above: Performed By: #### C BC #### [facility] [address] [place] [address] Dr. Kevin Vale Calcium [Mass/Vol] 9.4 mg/dL Normal 8.5-10.1 [facility] Comment on above: Performed By: #### C BC #### [facility] [address] [place] [address] Dr. Kevin Vale Chloride [Moles/Vol] 105 mmol/L Normal 98-107 [facility] Comment on above: Performed By: #### C BC #### [facility] [address] [place] [address] Dr. Kevin Vale CO2 [Moles/Vol] 25.9 mmol/L Normal 21.0-32.0 [facility] Comment on above: Performed By: #### C BC #### [facility] [address] [place] [address] [address] Kevin Vale Creatinine [Mass/Vol] 2.17 mg/dL Critically high 0.70-1.30 [facility] Comment on above: Performed By: #### C BC #### [facility] [address] [place] [address] [address] Kevin Vale EGFR-AF MALAGASY 39 mL/min/1.73m2 Critically low >=60 [facility] Comment on above: Performed By: #### C BC #### [facility] [address] [place] [address] [address] Kevin Vale EGFR-NON AF MALAGASY 32 mL/min/1.73m2 Critically low >=60 [facility] Comment on above: Performed By: #### C BC #### [facility] [address] [place] [address] [address] Kevin Vale Glucose [Mass/Vol] 111 mg/dL Critically high 74-106 [facility] Comment on above: Performed By: #### C BC #### [facility] [address] [place] [address] [address] Kevin Vale Potassium [Moles/Vol] 4.9 mmol/L Normal 3.5-5.1 [facility] Comment on above: Performed By: #### C BC #### [facility] [address] [place] [address] [address] Kevin Vale Sodium [Moles/Vol] 141 mmol/L Normal 136-145 [facility] Comment on above: Performed By: #### C BC #### [facility] [address] [place] [address] [address] Kevin Vale Urea nitrogen [Mass/Vol] 45.0 mg/dL Critically high 7.0-18.0 [facility] Comment on above: Performed By: #### C BC #### [facility] [address] [place] [address] [address] Kevin Vale Urea nitrogen/Creatinin e [Mass ratio] 20.7 mg/mg Normal [facility] Comment on above: Performed By: #### C BC #### [facility] [address] [place] [address] Dr. Kevin Vale CULTURE WOUNDon 07-26-2022 CULTURE [...] F Tetracycline <=0.25 S F Normal [facility] Comment on above: Performed By: #### W OUNDCX #### [facility] [address] [place] [address] Dr. Kevin ECHOLS STAINon 07-24-2022 DIPHTHEROIDS Normal [facility] Comment on above: Performed By: #### G STAIN #### [facility] [address] [place] [address] Dr. Kevin Vale EPITHELIALS Normal [facility] Comment on above: Performed By: #### G STAIN #### [facility] [address] [place] [address] Dr. Kevin Vale FUNGAL ELEMENTS Normal [facility] Comment on above: Performed By: #### G STAIN #### [facility] [address] [place] [address] [address] Kevin ECHOLS NEG BACILLI Normal [facility] Comment on above: Performed By: #### G STAIN #### [facility] [address] [place] [address] [address] Kevin ECHOLS NEG DIPPLOCOCCI Normal [facility] Comment on above: Performed By: #### G STAIN #### [facility] [address] [place] [address] Dr. Kevin ECHOLS POS BACILLI Normal [facility] Comment on above: Performed By: #### G STAIN #### [facility] [address] [place] [address] [address] Kevin Vale GRAM POSITIVE COCCI RARE Normal [facility] Comment on above: Performed By: #### G STAIN #### [facility] [address] [place] [address] [address] Kevin Vale GRAM STAIN SOURCE left plantar foot ulcer Normal [facility] Comment on above: Performed By: #### G STAIN #### [facility] [address] [place] [address] [address] Kevin Vale GS_DIPTH Normal [facility] Comment on above: Performed By: #### G STAIN #### [facility] [address] [place] [address] [address] Kevin Vale WBC NONE SEEN Normal [facility] Comment on above: Performed By: #### G STAIN #### [facility] [address] [place] [address] [address] Kevin Vale MRI FOOT LT WO [...] JESUS GARCIA Date: 2022-07-22 12:33 Normal [facility] XR FOREIGN BODY EYEon 2022 XR FOREIGN BODY EYE EXAMINATION: XR FOREIGN BODY EYE HISTORY: Foreign body in eye COMPARISON: No relevant comparison available. FINDINGS: ORBITS: Negative for a metallic foreign body. OTHER: Negative. IMPRESSION: No metallic foreign body in the orbits Electronically authenticated by: KYE MCINTOSH Date: 2022-07-21 10:57 Normal [facility] Follow-Upon 07-20-2022 Follow-Up [id number] Ja Hawkins tt 1970 M Date Provider Department Center 07/20/2022 J[facility] C[facility]IG [facility] SURG [place] Family History Problem Relation Age of Onset Cancer Mother Heart attack Father Family Status - Relation Status Age at Mother Father Level of Service:[id number] [place] OFFICE/OUTPATIENT ESTABLISHED LOW MDM 20-29 MIN Reason for Visit and Comments: Follow-up [[id number]] - Pinched nerve; Last visit patient had no movement and today he has a little movement in the right toe and leg. Normal [facility] CBC AUTO DIFFon 07-14-2022 BASO # 0.1 103/ul Normal 0.0-0.1 [facility] Comment on above: Performed By: #### C BC #### [facility] [address] [place] [address] Dr. Kevin Vale Basophils/100 WBC (Bld) 1.0 % Normal 0.2-2.0 [facility] Comment on above: Performed By: #### C BC #### [facility] [address] [place] [address] Dr. Kevin Vale EO # 0.3 103/ul Normal 0.0-0.7 [facility] Comment on above: Performed By: #### C BC #### [facility] [address] [place] [address] [address] Kevin Vale Eosinophils/100 WBC (Bld) 3.7 % Normal 0.9-7.0 [facility] Comment on above: Performed By: #### C BC #### [facility] [address] [place] [address] Dr. Kevin Vale Erythrocyte distribution width (RBC) [Ratio] 14.6 % Normal 11.0-15.0 [facility] Comment on above: Performed By: #### C BC #### [facility] [address] [place] [address] Dr. Kevin Vale Hematocrit (Bld) [Volume fraction] 38.5 % Critically low 42.0-54.0 [facility] Comment on above: Performed By: #### C BC #### [facility] [address] [place] [address] Dr. Kevin Vale Hemoglobin (Bld) [Mass/Vol] 12.5 g/dL Critically low 14.0-18.0 [facility] Comment on above: Performed By: #### C BC #### [facility] [address] [place] [address] Dr. Kevin Vale IG # 0.06 10e3/ul Critically high 0.00-0.03 [facility] Comment on above: Performed By: #### C BC #### [facility] [address] [place] [address] Dr. Kevin Vale IG % 0.7 % Critically high 0.0-0.5 [facility] Comment on above: Performed By: #### C BC #### [facility] [address] [place] [address] Dr. Kevin Vale LYMPH # 1.8 103/ul Normal 1.2-3.8 [facility] Comment on above: Performed By: #### C BC #### [facility] [address] [place] [address] Dr. Kevin Vale Lymphocytes/100 WBC (Bld) 22.0 % Normal 20.5-60.0 [facility] Comment on above: Performed By: #### C BC #### [facility] [address] [place] [address] Dr. Kevin Vale MANUAL DIFF REQ NO Normal [facility] Comment on above: Performed By: #### C BC #### [facility] [address] [place] [address] Dr. Kevin Vale MCH (RBC) [Entitic mass] 29.9 pg Normal 25.9-34.0 [facility] Comment on above: Performed By: #### C BC #### [facility] [address] [id number] Kevin Vale MCHC (RBC) [Mass/Vol] 32.5 g/dL Normal 29.9-35.2 [facility] Comment on above: Performed By: #### C BC #### [facility] [address] [id number] Kevin Vale MCV (RBC) [Entitic vol] 92.1 fL Normal 80.0-94.0 [facility] Comment on above: Performed By: #### C BC #### [facility] [address] [address] [address] Kevin Vale MONO # 0.8 103/ul Normal 0.3-0.8 [facility] Comment on above: Performed By: #### C BC #### [facility] [address] [place] [address] Dr. Kevin Vale Monocytes/100 WBC (Bld) 9.4 % Normal 1.7-12.0 [facility] Comment on above: Performed By: #### C BC #### [facility] [address] [place] [address] Dr. Kevin Vale NEUT # 5.3 103/ul Normal 1.4-6.5 [facility] Comment on above: Performed By: #### C BC #### [facility] [address] [place] [address] Dr. Kevin Vale Neutrophils/100 WBC (Bld) 63.2 % Normal 43.0-75.0 [facility] Comment on above: Performed By: #### C BC #### [facility] [address] [place], [place] [id number] Dr. Kevin Vale Platelet mean volume (Bld) [Entitic vol] 10.7 fL Normal 9.5-13.5 [facility] Comment on above: Performed By: #### C BC #### [facility] [address] [place] [address] Dr. Kevin Vale PLT 348 103/ul Normal 150-450 [facility] Comment on above: Performed By: #### C BC #### [facility] [address] [address] [address] Kevin Vale RBC 4.18 106/ul Critically low 4.70-6.10 [facility] Comment on above: Performed By: #### C BC #### [facility] [address] [address] [address] Kevin Vale WBC 8.3 103/ul Normal 4.0-11.0 [facility] Comment on above: Performed By: #### C BC #### [facility] [address] [address] [address] Kevin Vale CRPon 07-14-2022 CRP 2.0 mg/dL Critically high <=1.0 [facility] Comment on above: Performed By: #### B MP, CRP #### [facility] [address] [place] [address] Dr. Kevin Vale GLYCOHEMOGLOBIN A1Con 2022 ADA RECOMMENDATION SEE BELOW Normal [facility] Comment on above: Result Comment: ADA RECOMMENDED LIMIT 4.0 - 6.0 ADA THERAPEUTIC TARGET < 7.0 ACTION SUGGESTED > 7.0 Performed By: #### G STAIN #### [facility] [address] [address] [address] Kevin Vale Glucose [Mass/Vol] 166 mg/dL Normal [facility] Comment on above: Performed By: #### G STAIN #### [facility] [address] [place] [address] Dr. Kevin Vale HbA1c (Bld) [Mass fraction] 7.4 % Critically high 4.5-6.2 [facility] Comment on above: Performed By: #### G STAIN #### [facility] [address] [place] [address] Dr. Kevin Vale PROF CHEM 8 (BAS METB)on Anion gap [Moles/Vol] 15.0 mmol/L Normal [facility] Comment on above: Performed By: #### B MP, CRP #### [facility] [address] [address] [address] Kevin Vale Calcium [Mass/Vol] 9.3 mg/dL Normal 8.5-10.1 [facility] Comment on above: Performed By: #### B MP, CRP #### [facility] [address] [address] [address] Kevin Vale Chloride [Moles/Vol] 100 mmol/L Normal 98-107 [facility] Comment on above: Performed By: #### B MP, CRP #### [facility] [address] [address] [address] Kevin Vale CO2 [Moles/Vol] 27.3 mmol/L Normal 21.0-32.0 [facility] Comment on above: Performed By: #### B MP, CRP #### [facility] [address] [place] [address] Dr. Kevin Vale Creatinine [Mass/Vol] 2.06 mg/dL Critically high 0.70-1.30 [facility] Comment on above: Performed By: #### B MP, CRP #### [facility] [address] [place] [address] Dr. Kevin Vale EGFR-AF MALAGASY 41 mL/min/1.73m2 Critically low >=60 [facility] Comment on above: Performed By: #### B MP, CRP #### [facility] [address] [place] [address] Dr. Kevin Vale EGFR-NON AF MALAGASY 34 mL/min/1.73m2 Critically low >=60 [facility] Comment on above: Performed By: #### B MP, CRP #### [facility] [address] [place] [address] Dr. Kevin Vale Glucose [Mass/Vol] 176 mg/dL Critically high 74-106 [facility] Comment on above: Performed By: #### B MP, CRP #### [facility] [address] [address] [address] Kevin Vale Potassium [Moles/Vol] 5.3 mmol/L Critically high 3.5-5.1 [facility] Comment on above: Performed By: #### B MP, CRP #### [facility] [address] [place] [address] Dr. Kevin Vale Sodium [Moles/Vol] 137 mmol/L Normal 136-145 [facility] Comment on above: Performed By: #### B MP, CRP #### [facility] [address] [address] [address] Kevin Vale Urea nitrogen [Mass/Vol] 43.0 mg/dL Critically high 7.0-18.0 [facility] Comment on above: Performed By: #### B MP, CRP #### [facility] [address] [address] [address] Kevin Vale Urea nitrogen/Creatinin e [Mass ratio] 20.9 mg/mg Normal [facility] Comment on above: Performed By: #### B MP, CRP #### [facility] [address] [place] [address] Dr. Kevin Vale SED RATE [facility] 2022 SED RATE 110 mm/hr Critically high <=20 [facility] Comment on above: Performed By: #### G STAIN #### [facility] [address] [place] [address] Dr. Kevin Vale Consulton 05-18-2022 Consult [id number] Ja Hawkins 1970 M Date Provider Department Center 05/18/2022 JUANJOSE CRAIG [facility] SURG [place] Family History Problem Relation Age of Onset Cancer Mother Heart attack Father Family Status - Relation Status Age at Mother Father Level of Service:08535 [facility] OFFICE CONSULTATION NEW/ESTAB PATIENT 40 MIN Reason for Visit and Comments: Consult [484] - pinched nerve in back Normal [facility] CT FOOT LT WO W CONon 2021 [...] by: RENITA VERDIN Date: 2022-03-31 16:18 Normal [facility] MRI LSPINE WO CONon 03-26-20 MRI LSPINE WO CON EXAMINATION: MRI LSP [...] by: RENITA VERDIN Date: 2022-03-26 15:56 Normal [facility] US KHANG DOP LEG RTon 03-18-20 US KHANG DOP LEG RT EXAMINATION: US KHANG DOP LEG RT HISTORY: Pain in limb COMPARISON: 03/05/2022 TECHNIQUE: Grayscale, color and Doppler ultrasound FINDINGS: Region: Right Thrombus: None Flow: Normal Compressibility: Normal Augmentation: Normal IMPRESSION: No deep or superficial vein thrombus in the right leg *Exam performed in accordance with [facility] practice guidelines- Peripheral venous ultrasound, October 05, 2009. Electronically authenticated by: KYE MCINOTSH Date: 2022-03-18 15:33 Normal [facility] US KHANG DOP LEG RTon [...] by: RENITA VERDIN Date: 2022-03-05 10:03 Normal [facility] US KHANG DOP LEG BILon [...] by: KYE MCINTOSH Date: 2022-01-06 16:58 Normal [facility] POINT OF CARE GLUCOSEon 12-11 Glucose [Mass/Vol] 199 mg/dL Critically high 74-106 T he [facility] Comment on above: Performed By: #### G STAIN #### [facility] [address] [place] [address] Dr. Kevin Vale [facility]10 SARS-CoV-2 (COVID-19) RNA LASHAY+probe Ql (Unsp spec) Not detected Normal NOT DETECTED [facility] Comment on above: Result Comment: This test is not yet approved or cleared by the [place] FDA. When there are no FDA-approved or cleared tests available, and other criteria are met, FDA can make tests available under an emergency access mechanism called an Emergency Use Authorization (EUA). The EUA for this test is supported by the [place] of Health and Human Service's (HHS's) declaration [...] SARS-CoV-2. Performed By: #### S EDR #### [facility] [address] [place], [place] [address] Dr. Kevin Vale GLUCOSE-POCTon 03-08-2019 Glucose [Mass/Vol] 160 mg/dL High 74 - 99 [facility] Comment on above: Performed By: #### G WESTON #### [facility] [address] [place] [address] Glucose [Mass/Vol] 178 mg/dL High 74 - 99 [facility] Comment on above: Performed By: #### G WESTON #### [facility] [address] [place] [address] History and Physical - Surgi estefany Update [...] the note. I personally evaluated the patient [id number] Attending Provider Inpatient Certification StatementObservation patient/other outpatient visits Electronic Signatures: Fabiola Siegel (Resident)) (Signed 08-Mar-2019 07:20) Authored: History & Physical Reviewed, Signatures/Attestation/Certi fication Xochitl Harman) (Signed 08-Mar-2019 09:06) Authored: Signatures/Attestation/Certi fication Co-Signer: History & Physical Reviewed, Signatures/Attestation/Certi fication Last Updated: 08-Mar-2019 09:06 by Xochitl Harman) Normal [facility] Patient Profile - Preop v2on 03-08-2019 Patient Profile - Preop v2 Profile: Initial Info: How to be AddressedBrett(1) Spoken Language PreferredEnglish (1) Source of Informationpatient Are you currently using the Personal Electronic Health Record or Dune NetworksUHCAREno (1) Are you interested in learning more about MY[employer] for the management of your healthnot at this time Prep Instructions Reviewedn/a Stated Reason for Admissionstretching out throat Primary Contact Name and Numberalifranca welsh Limitations on Visitors/Phone Callsnone Patient Belongingsnone Medications Brought to Hospitalno General Health: Weight in kg93.7 kilogram(s) Weight in qbf665.5 pound(s) Weight Methodactual (measured) Scale Typestanding Height [...] Transitionnone Lives Withspouse Living Arrangementshouse Anticipated Transition Tostamping ground Substance: Current or Former Substance Use never: [...] Learning Preferencesverbal instruction Cultural Considerationsnone Developmental Considerationsnone Rastafarian Considerationsnone Other learner availableno [place] RiskPatient location auto qualifies him/her for HIGH RISK. Are there any cultural, spiritual, islam practices/values/needs that are important for us to knowno Do you want a visit/item from Pastoral [facility] Would you like your Assistant Site Manager/Warehouse Team Leader notifiedno Pain Scalenumerical 0-10 Pain Scale Educationteaching [...] Past Medical History, Active Electronic Signatures: Raegan Geiger (LESIA) (Signed 08-Mar-2019 07:09) Authored: Profile, Additional Information Last Updated: 08-Mar-2019 07:09 by Raegan Geiger (LESIA) References: 1. Data Referenced From Patient Profile - Preop v2 09-Mar-2018 13:54 Normal [facility] Preop Checkliston 03-08-2019 Preop Checklist Preop Checklist: Preop Checklist: Arrival [id number] Arrival Time06:37 Procedure Typelaryngoscopy/ bronch/ steroid injection, balloon dilation NPO [id number] 00:00 ID Band Onyes Allergy Bandno known [...] Communication: Language / CommunicationEnglish Electronic Signatures: Raegan Geiger (LESIA) (Signed 08-Mar-2019 07:01) Authored: Preop Checklist Last Updated: 08-Mar-2019 07:01 by Raegan Geiger (LESIA) Normal [facility] Clinical Event Note-Pre op c allon 03-07-2019 Clinical Event Note-Pre op call Event: Topic: Pre op call Details: No answer Electronic Signatures: Christian Ron (LESIA) (Signed 07-Mar-2019 16:17) Authored: Event Last Updated: 07-Mar-2019 16:17 by Christian Ron (LESIA) Normal [facility] CT NECK W/O CONTRASTon 02-23 CT NECK W/O CONTRAST Patient Name: FELISHA HAWKINS STUDY: CT NECK W/O CONTRAST; 02/23/2019 12:42 pm INDICATION: tracheal stenosis. History of prolonged intubation. history of prior tracheal balloon dilatation. COMPARISON: None. ACCESSION NUMBER(S): [id number] ORDERING CLINICIAN: XOCHITL HARMAN TECHNIQUE: Axial CT [...] stenosis. Electronically signed by: BIBI SANDERS MD [facility] Otheron 02-23-2019 Interpreted by: BIBI SANDERS02/23/19 13:36MRN: [id number] Name: FELISHA HAWKINS STUDY:CT NECK W/O CONTRAST; [...] by: BIBI SANDERS 02/23/19 13:36 Normal [facility]-Otolaryng ology-Ines mares Voice Work Phone: Established Visit (Otolaryng ology)on 02-11-2019 Established Visit (Otolaryngology) Diagnoses/Problems Tracheal stenosis (519.19) (J39.8) Uncontrolled diabetes mellitus (250.02) (E11.65) Orders CT Neck without Contrast; Status:Active; Requested for:[id number]; Perform:[facility] Imaging; Order Comments:1MM cuts please;Ordered; [...] [facility]. Dr. Harman is an ENT surgeon who specializes in voice, airway and swallowing issues. This means that she specializes in taking care of patients with complex voice, airway and swallowing problems. Dr. Harman's office number is [phone]. Please use this number to contact her and her care team regardless of which office you use to access care. This number is the most direct way to communicate with all the members of the care team. Luz is Dr. San legal administrative secretary and she answers the office phone from 9am-4pm Wed-Wed. Call [phone] and push 2. She can help you [...] nurse and can be reached by calling [phone]. Virgen is in clinic on Mondays, Tuesdays, [...] or to schedule an appointment, please call [phone]. Others who may be included in your care are dieticians, social workers, audiologists, neurologists, and physical therapists. Dr. Harman will provide these referrals as needed. Please let her know if you would like to request a specific referral. For your convenience, Dr. Harman sees patients at different [facility] locations including the [facility], and [facility] at the [facility]. While we try to make your appointments [...] healthcare goals. By signing my name below, Chiquita Payne Scribe, attest that this documentation has been prepared under the direction and in the presence of Dr. Xochitl Harman. All medical record entries made by the Scribe were at my direction and personally dictated [...] Xrays and reveal: 01/18/2019 CT scan from [facility]. It is in 3 mm sections, need [...] MG Oral Tablet Vitals Vital Signs Recorded: 52Cxg5903 12:22PM Qohmpnwoobh50.9 F, Temporal Heart Rate80 Eotlmblu080, Sitting Qtlkopxhx972, Sitting Height5 ft 9 in Zamtgi682 lb 1 oz BMI Ototsxnpxi97.02 BSA Calculated2.11 O2 Ubdqsacutx45, RA Physical Exam CONSTITUTIONAL: well developed, well [...] Feb 11 2019 7:42PM EST (Author) [facility] Established Visit (Otolaryng ology)on 11-21-2018 Established Visit (Otolaryngology) No report was sent Normal [facility] Established Visit (Otolaryng ology)on 02-12-2018 Established Visit [...] 1 SPRAY IN EACH NOSTRIL EVERYDAY; Therapy: 68Nbg1786 to Recorded Rx By: BETH; Dispense: 30 Days ; #:16 SUSP; Refill: 0; DIANNA = N; Record; Last Updated By: Tessa Huff; 03/16/2017 3:31:01 PM Januvia 100 MG Oral Tablet; Therapy: 17Yxh2514 to Recorded Dispense: 0 Days ; #: Sufficient Tablet; Refill: 0; DIANNA = N; Record; Last Updated By: Juil Robles; 04/01/2017 2:00:27 PM KlonoPIN 0.5 MG Oral Tablet; Therapy: (Recorded:55Kck9216) to Recorded Dispense: 0 Days ; #: Sufficient TABS; Refill: 0; DIANNA = N; Record; Last Updated By: Jessy Koenig; 02/10/2018 4:11:17 PM Lisinopril 10 MG Oral Tablet; Therapy: 42Mwx1107 to Recorded Dispense: 0 Days ; #: Sufficient Tablet; Refill: 0; DIANNA = N; Record; Last Updated By: Juli Robles; 04/01/2017 2:00:27 PM Melatonin ER 10 MG Oral Tablet Extended Release; Therapy: (Recorded:51Fre4987) to Recorded Dispense: 0 Days ; #: [...] 30 Days ; #:90 TABS; Refill: 0; IDANNA = N; Record; Last Updated By: Tessa Huff; 03/16/2017 3:31:01 PM Ventolin HFA 108 (90 Base) MCG/ACT Inhalation Aerosol Solution; Therapy: (Recorded:26Dar5065) to Recorded Dispense: 0 Days ; #: Sufficient AERS; Refill: 0; DIANNA = N; Record; Last Updated By: Jessy Koenig; 02/10/2018 4:11:17 PM Zoloft 50 MG Oral Tablet; Therapy: (Recorded:47Nje4873) to Recorded Dispense: 0 Days ; #: Sufficient TABS; Refill: 0; DIANNA = N; Record; Last Updated By: Jessy Koenig; 02/10/2018 4:11:17 PM Vitals Vital Signs Recorded: 47Zxl9599 04:08PM Heart Rate76 Cbyqefsc522 Ayrqncnfz49 Height5 ft 9 in Wizuzf131 lb BMI Tkhozvzdzv14.83 BSA Calculated2.07 Physical Exam CONSTITUTIONAL: well developed, [...] provides verbal consent. PROCEDURE: Flexible Laryngoscopy, CPT 72437 POSTPROCEDURE DIAGNOSIS: tracheal stenosis INDICATIONS: Inability to [...] Education Material Provided for Patient; Status:Complete; Done: 83Kfj2111 09:58AM Ordered; For:Tracheal stenosis; Ordered By:Xochitl Harman; [...] be below 8 for surgery if possible. I, Dr. Harman, personally performed the services described in the documentation as scribed by, Roxann Navarro in my presence and confirm it is both complete and accurate. Patient Discussion/Summary By signing my name below, IRoxann Scribe, attest that this documentation has been prepared under the direction and in the presence of Dr. Xochitl Harman. All medical record entries made by the Scribe were at my direction and personally dictated by me. I have reviewed the chart and agree that the record accurately reflects my personal performance of the history, physical exam, discussion and plan. 1. Will schedule you for outpatient surgery at [facility] to assess and treat narrowing of your airway. 2. Check your sugars and continue to take medications for diabetes, goal HG A1C below 8 If your symptoms change, or if you have any further questions or concerns, please call the office so we can see you. For general questions or scheduling issues, call our legal administrative secretary Tammie Salgado at [phone] For medical questions or surgery scheduling issues, call [phone] To reach Speech therapy, for appointments or questions, call [phone]. End of Encounter Meds Fluticasone Propionate 50 MCG/ACT Nasal Suspension; USE 1 SPRAY IN EACH NOSTRIL EVERYDAY; Therapy: 06Nii1909 to Recorded Januvia 100 MG Oral Tablet; Therapy: 01Apr2017 to Recorded KlonoPIN 0.5 MG Oral Tablet (ClonazePAM); Therapy: (Recorded:67Mfr5255) to Recorded Lisinopril 10 MG Oral Tablet; Therapy: 01Apr2017 to Recorded Melatonin ER 10 MG Oral Tablet Extended Release; Therapy: (Recorded:54Xcs0746) to Recorded MetFORMIN HCl - 500 MG Oral Tablet; Therapy: 15Apr2017 to Recorded Metoprolol Tartrate 50 MG Oral Tablet; TAKE 1 AND 1/2 TABLETS BY MOUTH TWICE A DAY WITH FOOD; Therapy: 18Feb2017 to Recorded Ventolin HFA 108 (90 Base) MCG/ACT Inhalation Aerosol Solution; Therapy: (Recorded:05Emk6545) to Recorded Zoloft 50 MG Oral Tablet (Sertraline HCl); Therapy: (Recorded:72Zmy9530) to Recorded [facility] CT CERVICAL SPINE WO ANTWON Ton 03-10-2017 CT CERVICAL SPINE WO CONTRAST [...] by:LISETH Calvilloigned by:Rhys Wilhelm MD03/10/17Final result Normal [facility] CT THORACIC SPINE WO ANTWON Ton 03-10-2017 CT THORACIC SPINE WO CONTRAST [...] Compression of the T4 vertebral body with vbgstpcfoftfk11% height loss in the center portion, possibly on a degenerative basis. Anadditional small area of compression involving the T8 vertebral body withsome areas of sclerosis. 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 Additional eGFR calculator available at:http://[email or web address].Vive Unique/multiple_crcl_2012.htmR[facility]ide [facility] [address] [place] [address] Performed By: #### C GHULAM, BMP ####[facility] [id number] [place] [address] Anion gap 15 mmol/L Normal - [facility] Comment on above: Performed By: #### C GHULAM, BMP ####[facility] [address] [place], [place] [id number] Calcium 8.2 mg/dL Low 8.6-10.4 [facility] Comment on above: Performed By: #### C GHULAM, BMP ####[facility] Oszsdxqhgemd6963 [place] [address] Chloride 103 mmol/L Normal 98-107 [facility] Comment on above: Performed By: #### C BC, BMP ####[facility] AmaroXahesyxsfdtu1643 [place] [address] CO2 26 mmol/L Normal 20-31 [facility] Comment on above: Performed By: #### C BC, BMP ####[facility] AmaroSwbuylkkobnh8763 [place] [address] Creatinine 0.59 mg/dL Low 0.70-1.20 [facility] Comment on above: Performed By: #### C BC, BMP ####[facility] AmaroMsaaaxbjknds2995 [place] [address] eGFR (non-black) mL/min/{1.73_m2} Normal >60 [facility] Comment on above: Performed By: #### C BC, BMP ####[facility] AmaroVaqsltviglno0552 [place] [address] Glucose mass conc 145 mg/dL High 70-99 [facility] Comment on above: Performed By: #### C BC, BMP ####[facility] AmaroSomiwmmguniv4770 [place] [address] Potassium molar conc 3.1 mmol/L Low 3.7-5.3 [facility] Comment on above: Performed By: #### C BC, BMP ####[facility] Lkclwwhphppn8024 [place] [address] Sodium 144 mmol/L Normal 135-144 [facility] Comment on above: Performed By: #### C BC, BMP ####[facility] Kvzsbmasftrc3803 [place] [address] Urea nitrogen 8 mg/dL Normal 6-20 [facility] Comment on above: Performed By: #### C BC, BMP ####[facility] Kykkloavtvmm4468 [place] [address] BUN/CRE Ratio NOT REPORTED Normal 9-20 [facility] Comment on above: Performed By: #### C BC, BMP ####[address] [address] Staging: NOT REPORTED Normal [facility] Comment on above: Performed By: #### C BC, BMP ####[address] [address] CBCon 01-19-2017 Erythrocyte distribution width Auto Ratio (RBC) 14.9 % Normal 12.5-15.4 [facility] Comment on above: Performed By: #### C BC, BMP ####[address] [address] Erythrocytes (RBC) 3.36 10*6/uL Low 4.5-5.9 [facility] Comment on above: Performed By: #### C BC, BMP ####[facility] [address] [address] Hematocrit (HCT) 28.8 % Low 41-53 [facility] Comment on above: Performed By: #### C BC, BMP ####[address] [address] Hemoglobin mass conc (Bld) 9.7 g/dL Low 13.5-17.5 [facility] Comment on above: Performed By: #### C BC, BMP ####[facility] [address] [address] MCH 29.0 pg Normal 26-34 [facility] Comment on above: Performed By: #### C BC, BMP ####[address] [address] MCHC mass conc (RBC) 33.8 g/dL Normal 31-37 [facility] Comment on above: Performed By: #### C BC, BMP ####[address] [place] [address] MCV 85.8 fL Normal 80-100 [facility] Comment on above: Performed By: #### C BC, BMP ####[facility] [address] [address] Platelet mean volume (PMV) 7.5 fL Normal 6.0-12.0 [facility] Comment on above: Result Comment: [address] [address] Performed By: #### C GHULAM, BMP ####[address] [address] Platelets 368 10*3/uL Normal 140-450 [facility] Comment on above: Performed By: #### C BC, BMP ####[address] [address] WBC (Leukocytes) 7.2 10*3/uL Normal 3.5-11.0 [facility] Comment on above: Performed By: #### C BC, BMP ####[address] [address] Basic Metabolic Profon 01-17 (cont.) Normal [facility] Comment on above: Result Comment: Aver age GFR for 40-49 years old: 99 mL/min/1.73sq mChronic Kidney Disease: <60 mL/min/1.73sq mKidney failure: <15 mL/min/1.73sq meGFR calculated using average adult body mass. Additional eGFR calculator available at:http://www.[employer].com/multiple_crcl_2012.htm[address] [address] Performed By: #### C BC, BMP ####[address] [address] Anion gap 15 mmol/L Normal 9-17 [facility] Comment on above: Performed By: #### C BC, BMP ####[facility] [place] [address] Calcium 8.3 mg/dL Low 8.6-10.4 [facility] Comment on above: Performed By: #### C BC, BMP ####[facility] [place] [address] Chloride 101 mmol/L Normal 98-107 [facility] Comment on above: Performed By: #### C GHULAM, BMP ####[address] [place] [address] CO2 26 mmol/L Normal 20-31 [facility] Comment on above: Performed By: #### C GHULAM, BMP ####[address] [place] [address] Creatinine 0.63 mg/dL Low 0.70-1.20 [facility] Comment on above: Performed By: #### C GHULAM, BMP ####[facility] [place] [address] eGFR (non-black) mL/min/{1.73_m2} Normal >60 [facility] Comment on above: Performed By: #### C BC, BMP ####[facility] Infsjypoqede3188 [place] [address] Glucose mass conc 150 mg/dL High 70-99 [facility] Comment on above: Performed By: #### C BC, BMP ####[facility] [place] [address] Potassium molar conc 3.2 mmol/L Low 3.7-5.3 [facility] Comment on above: Performed By: #### C BC, BMP ####[facility] Kiroealjrqvu1912 [place] [address] Sodium 142 mmol/L Normal 135-144 [facility] Comment on above: Performed By: #### C BC, BMP ####[facility] AmaroKpjjkzsqzbmk3407 [place] [address] Urea nitrogen 8 mg/dL Normal 6-20 [facility] Comment on above: Performed By: #### C BC, BMP ####[facility] AmaroGgxnurwwcjxc7950 [place] [address] BUN/CRE Ratio NOT REPORTED Normal 9-20 [facility] Comment on above: Performed By: #### C GHULAM, BMP ####[facility] AmaroPaboxohoqaff3003 [place] [address] Staging: NOT REPORTED Normal [facility] Comment on above: Performed By: #### C BC, BMP ####[facility] [address] [address] CBCon 01-17-2017 Erythrocyte distribution width Auto Ratio (RBC) 14.3 % Normal 12.5-15.4 [facility] Comment on above: Performed By: #### C BC, BMP ####[facility] AmaroUhktrhpsotar6215 [place] [address] Erythrocytes (RBC) 3.57 10*6/uL Low 4.5-5.9 [facility] Comment on above: Performed By: #### C BC, BMP ####[facility] AmaroPsbgdqkoqjin7506 [place] [address] Hematocrit (HCT) 30.0 % Low 41-53 [facility] Comment on above: Performed By: #### C BC, BMP ####[facility] AmaroKjwkfalzhzqe6267 [place] [address] Hemoglobin mass conc (Bld) 10.2 g/dL Low 13.5-17.5 [facility] Comment on above: Performed By: #### C BC, BMP ####[facility] AmaroYlidqwzaibvd3240 [place] [address] MCH 28.5 pg Normal 26-34 [facility] Comment on above: Performed By: #### C BC, BMP ####[facility] Fmpsmszzbmux3571 [place] [address] MCHC mass conc (RBC) 33.9 g/dL Normal 31-37 [facility] Comment on above: Performed By: #### C GHULAM, BMP ####[facility] AmaroUlimkdsdcrzb[address] [place] [address] MCV 84.0 fL Normal 80-100 [facility] Comment on above: Performed By: #### C GHULAM, BMP ####[address] [address] Platelet mean volume (PMV) 7.9 fL Normal 6.0-12.0 [facility] Comment on above: Result Comment: [address] [place] [address] Performed By: #### C GHULAM, BMP ####[address] [address] Platelets 337 10*3/uL Normal 140-450 [facility] Comment on above: Performed By: #### C GHULAM, BMP ####[address] [address] WBC (Leukocytes) 7.5 10*3/uL Normal 3.5-11.0 [facility] Comment on above: Performed By: #### C GHULAM, BMP ####[address] [address] Basic Metabolic Profon 01-15 (cont.) Normal [facility] Comment on above: Result Comment: Aver age GFR for 40-49 years old: 99 mL/min/1.73sq mChronic Kidney Disease: <60 mL/min/1.73sq mKidney failure: <15 mL/min/1.73sq meGFR calculated using average adult body mass. Additional eGFR calculator available at:http://www.[employer]ive Unique/multiple_crcl_2012.htmSierra [facility] [address] [place] [address] Performed By: #### C BC, BMP, TRIG ####[facility] [place] [address] Anion gap 16 mmol/L Normal 9-17 [facility] Comment on above: Performed By: #### C BC, BMP, TRIG ####[address] [address] Calcium 8.4 mg/dL Low 8.6-10.4 [facility] Comment on above: Performed By: #### [place] BC, BMP, TRIG ####[address] [address] Chloride 106 mmol/L Normal 98-107 [facility] Comment on above: Performed By: #### C BC, BMP, TRIG ####[address] [address] CO2 23 mmol/L Normal 20-31 [facility] Comment on above: Performed By: #### C BC, BMP, TRIG ####[address] [address] Creatinine 0.61 mg/dL Low 0.70-1.20 [facility] Comment on above: Performed By: #### C BC, BMP, TRIG ####[address] [address] eGFR (non-black) mL/min/{1.73_m2} Normal >60 [facility] Comment on above: Performed By: #### C BC, BMP, TRIG ####[address] [address] Glucose mass conc 188 mg/dL High 70-99 [facility] Comment on above: Performed By: #### C MELANI PARMAR, TRIG ####[facility] Rzfucirtxsvj1324 [place] [address] Potassium molar conc 3.4 mmol/L Low 3.7-5.3 [facility] Comment on above: Performed By: #### MELANI TORRES, TRIG ####[facility] AmaroXwcgkdhklugu3649 [place] [address] Sodium 145 mmol/L High 135-144 [facility] Comment on above: Performed By: #### MELANI TORRES, TRIG ####[facility] [address] [address] Urea nitrogen 11 mg/dL Normal 6-20 [facility] Comment on above: Performed By: #### C MELANI PARAMR, TRIG ####[facility] [address] [place] [address] BUN/CRE Ratio NOT REPORTED Normal 9-20 [facility] Comment on above: Performed By: #### MELANI TORRES, TRIG ####[facility] [address] [address] Staging: NOT REPORTED Normal [facility] Comment on above: Performed By: #### MELANI TORRES, TRIG ####[facility] [address] [place] [address] CBCon 01-15-2017 Erythrocyte distribution width Auto Ratio (RBC) 14.0 % Normal 12.5-15.4 [facility] Comment on above: Performed By: #### C MELANI PARMAR, TRIG ####[facility] Shkornwsbllv5156 [place] [address] Erythrocytes (RBC) 3.34 10*6/uL Low 4.5-5.9 [facility] Comment on above: Performed By: #### C GHULAM BMP, TRIG ####[facility] Cwgdcipzfihr3165 [place] [address] Hematocrit (HCT) 28.7 % Low 41-53 [facility] Comment on above: Performed By: #### C BC, BMP, TRIG ####[facility] Xdkdkoopatid3347 [place] [address] Hemoglobin mass conc (Bld) 9.8 g/dL Low 13.5-17.5 [facility] Comment on above: Performed By: #### C BC, BMP, TRIG ####[facility] [address] [place] [address] MCH 29.4 pg Normal 26-34 [facility] Comment on above: Performed By: #### C BC, BMP, TRIG ####[facility] MindsFrtfsxoexjkl[address] [place] [address] MCHC mass conc (RBC) 34.2 g/dL Normal 31-37 [facility] Comment on above: Performed By: #### C BC, BMP, TRIG ####[address] [address] MCV 85.9 fL Normal 80-100 [facility] Comment on above: Performed By: #### C BC, BMP, TRIG ####[facility] [place] [address] Platelet mean volume (PMV) 7.8 fL Normal 6.0-12.0 [facility] Comment on above: Result Comment: [facility] [address] [place] [address] Performed By: #### C BC, BMP, TRIG ####[address] [address] Platelets 495 10*3/uL High 140-450 [facility] Comment on above: Performed By: #### C BC, BMP, TRIG ####[facility] [address] [place] [address] WBC (Leukocytes) 8.9 10*3/uL Normal 3.5-11.0 [facility] Comment on above: Performed By: #### C BC, BMP, TRIG ####[facility] AmaroHndpjkqmrptn2827 [place] [address] CT CERVICAL SPINE WO CONTRAS Ton 01-15-2017 [...] SYSTEM PROVIDED HISTORY: fall on face in [id number] male who fell on his faceFINDINGS:BONES/ALIGNMENT : [...] by:LISETH Hooverigned by:Catracho Lara MD01/15/17Final result Normal [facility] CT FACIAL BONES WO CONTRASTo [...] Chaseigned by:Miguel Ángel Shetty MD01/15/17Final result Normal [facility] CT HEAD WO CONTRASTon 2016 [...] by:LISETH Ortegaigned by:Rainer Fontana MD01/15/17Final result Normal [facility] CT LUMBAR SPINE WO CONTRASTo [...] SYSTEM PROVIDED HISTORY: fall on face in [id number] male with fall on face in room, [...] right transverse processes of the T2 through M9upmcecjwz bodies.4. Mild diffuse wall thickening of the esophagus. Mildly enlarged rightparatracheal and subcarinal lymph nodes, similar to the prior study.Lumbar spine:1. No clear evidence for acute fracture or malalignment within the lumbarspine.2. Multilevel Schmorl's node deformities within the lumbar spine.Findings were discussed with Dr. Calderon at 4:23 pm on 01/15/2017.Interpreted by:LISETH Hooverigned by:Catracho Lara MD01/15/17Final result Normal [facility] CT THORACIC SPINE WO CONTRAS [...] SYSTEM PROVIDED HISTORY: fall on face in [id number] male with fall on face in room, [...] right transverse processes of the T2 through J6ehpzcfjmx bodies.4. Mild diffuse wall thickening of the esophagus. Mildly enlarged rightparatracheal and subcarinal lymph nodes, similar to the prior study.Lumbar spine:1. No clear evidence for acute fracture or malalignment within the lumbarspine.2. Multilevel Schmorl's node deformities within the lumbar spine.Findings were discussed with Dr. Calderon at 4:23 pm on 01/15/2017.Interpreted by:LISETH Hooverigned by:Catracho Lara MD01/15/17Final result Normal [facility] XR KNEE LEFT STANDARDon 07-0 XR KNEE LEFT STANDARD EXAMINATION:3 VIEWS OF THE LEFT KNEE01/15/2017 3:24 pmCOMPARISON:None.HISTORY:OR DERING SYSTEM PROVIDED HISTORY: fall, knee abrasionsTECHNOLOGIST PROVIDED HISTORY:Reason for exam:->fall, knee abrasionsFINDINGS:Prior ACL repair. No fracture or dislocation. No radiopaque foreign body orsoft tissue swelling.IMPRESSION: No fracture.Interpreted by:LISETH Calvilloigned by:Rhys Wilhelm MD01/15/17Final result Normal [facility] XR KNEE RIGHT STANDARDon XR [...] by:LISETH Calvilloigned by:Rhys Wilhelm MD01/15/17Final result Normal [facility] Basic Metabolic Profon 01-13 (cont.) Normal [facility] Comment on above: Result Comment: Aver age GFR for 40-49 years old: 99 mL/min/1.73sq mChronic Kidney Disease: <60 mL/min/1.73sq mKidney failure: <15 mL/min/1.73sq meGFR calculated using average adult body mass. Additional eGFR calculator available at:http://www.[employer]/multiple_crcl_2012.htmSierra [facility] [address] [place] [address] Performed By: #### C BC, BMP, TRIG ####[facility] MindsJrbomzctmyuj[address] [place] [address] Anion gap 13 mmol/L Normal 9-17 [facility] Comment on above: Performed By: #### C BC, BMP, TRIG ####[facility] [address] [place] [address] Calcium 8.1 mg/dL Low 8.6-10.4 [facility] Comment on above: Performed By: #### C BC, BMP, TRIG ####[facility] MindsUtomtyhxgbax40[address] [place] [address] Chloride 111 mmol/L High 98-107 [facility] Comment on above: Performed By: #### C BC, BMP, TRIG ####[facility] MindsSvmzxhtdrptl[address] [place] [address] CO2 24 mmol/L Normal 20-31 [facility] Comment on above: Performed By: #### C BC, BMP, TRIG ####[facility] Ohcwbzwrzciw6659 [place] [address] Creatinine 0.69 mg/dL Low 0.70-1.20 [facility] Comment on above: Performed By: #### C BC, BMP, TRIG ####[facility] MindsHehdnbiypepq[address] [place] [address] eGFR (non-black) mL/min/{1.73_m2} Normal >60 Me [facility] Comment on above: Performed By: #### C BC, BMP, TRIG ####[facility] MindsYvivjkbtxprz5260 [place] [address] Glucose mass conc 268 mg/dL High 70-99 [facility] Comment on above: Performed By: #### C BC, BMP, TRIG ####[facility] MindsCguqxajimzem1061 [place] [address] Potassium molar conc 3.4 mmol/L Low 3.7-5.3 [facility] Comment on above: Performed By: #### C BC, BMP, TRIG ####[facility] MindsXwaizvcqmxet5822 [place] [address] Sodium 148 mmol/L High 135-144 [facility] Comment on above: Performed By: #### C BC, BMP, TRIG ####[facility] MindsMnjnffsjqude[address] [place] [address] Urea nitrogen 14 mg/dL Normal 6-20 [facility] Comment on above: Performed By: #### C BC, BMP, TRIG ####[facility] MindsOlhzzidhquyw[address] [place] [address] BUN/CRE Ratio NOT REPORTED Normal 9-20 [facility] Comment on above: Performed By: #### C BC, BMP, TRIG ####[facility] MindsQjkjvulkxdgq8577 [place] [address] Staging: NOT REPORTED Normal [facility] Comment on above: Performed By: #### C BC, BMP, TRIG ####[facility] MindsMpniskjhjvru2618 [place] [address] CBCon 01-13-2017 Erythrocyte distribution width Auto Ratio (RBC) 13.8 % Normal 12.5-15.4 [facility] Comment on above: Performed By: #### C BC, BMP, TRIG ####[facility] MindsWxcvlqyjzwxx7394 [place] [address] Erythrocytes (RBC) 3.17 10*6/uL Low 4.5-5.9 [facility] Comment on above: Performed By: #### C BC BMP, TRIG ####[facility] AmaroNpnrqljytknh2193 [place] [address] Hematocrit (HCT) 27.2 % Low 41-53 [facility] Comment on above: Performed By: #### C BC, BMP, TRIG ####[facility] [address]aroHbuzmdsfeerk[address] [place] [address] Hemoglobin mass conc (Bld) 9.2 g/dL Low 13.5-17.5 [facility] Comment on above: Performed By: #### C GHULAM, BMP, TRIG ####[address] [address] MCH 29.2 pg Normal 26-34 [facility] Comment on above: Performed By: #### C GHULAM, BMP, TRIG ####[address] [address] MCHC mass conc (RBC) 34.0 g/dL Normal 31-37 [facility] Comment on above: Performed By: #### C BC, BMP, TRIG ####[address] [address] MCV 85.8 fL Normal 80-100 [facility] Comment on above: Performed By: #### C BC, BMP, TRIG ####[address] [address] Platelet mean volume (PMV) 8.1 fL Normal 6.0-12.0 [facility] Comment on above: Result Comment: [address] [place] [address] Performed By: #### C BC, BMP, TRIG ####[address] [address] Platelets 533 10*3/uL High 140-450 [facility] Comment on above: Performed By: #### C MELANI PARMAR, TRIG ####[facility] [place], [place] [address] WBC (Leukocytes) 10.3 10*3/uL Normal 3.5-11.0 [facility] Comment on above: Performed By: #### C MELANI PARMAR, TRIG ####[facility] AmaroBdyvvxivkybv9979 [place] [address] XR ABDOMEN LIMITED (KUB)on 0 01-13-2017 XR [...] by:LISETH Cruzigned by:Kun Hager MD01/13/17Final result Normal [facility] Basic Metabolic Profon 01-12 (cont.) Normal [facility] Comment on above: Result Comment: Aver age GFR for 40-49 years old: 99 mL/min/1.73sq mChronic Kidney Disease: <60 mL/min/1.73sq mKidney failure: <15 mL/min/1.73sq meGFR calculated using average adult body mass. Additional eGFR calculator available at:http://www.[employer]/multiple_crcl_2012.htmSierra Nevada Memorial Hospital [address] [place] [address] Performed By: #### C BC, BMP, TRIG ####[address] [place] [address] Anion gap 19 mmol/L High 9-17 [facility] Comment on above: Performed By: #### C BC, BMP, TRIG ####[facility] Ydglzewatgtz7504 [place] [address] Calcium 8.8 mg/dL Normal 8.6-10.4 [facility] Comment on above: Performed By: #### C BC, BMP, TRIG ####[facility] MindsKuuxfpvipoai4034 [place] [address] Chloride 110 mmol/L High 98-107 [facility] Comment on above: Performed By: #### C BC, BMP, TRIG ####[facility] MindsZeqftlpdqhsg[address] [place] [address] CO2 20 mmol/L Normal 20-31 [facility] Comment on above: Performed By: #### C BC, BMP, TRIG ####[facility] MindsTxkmgkcfvwbb2761 [place] [address] Creatinine 0.77 mg/dL Normal 0.70-1.20 [facility] Comment on above: Performed By: #### C BC, BMP, TRIG ####[facility] Ojmpypywejbm3451 [place] [address] eGFR (non-black) mL/min/{1.73_m2} Normal >60 [facility] Comment on above: Performed By: #### C BC, BMP, TRIG ####[facility] Lokwzovecfxe1275 [place] [address] Glucose mass conc 239 mg/dL High 70-99 [facility] Comment on above: Performed By: #### C BC, BMP, TRIG ####[facility] V[address]xulnuhwfxw1942 [place] [address] Potassium molar conc 3.6 mmol/L Low 3.7-5.3 [facility] Comment on above: Performed By: #### MELANI TORRES, TRIG ####[facility] Nwbbxcaixpzt6407 [place] [address] Sodium 149 mmol/L High 135-144 [facility] Comment on above: Performed By: #### MELANI TORRES, TRIG ####[facility] [address] [place] [address] Urea nitrogen 18 mg/dL Normal 6-20 [facility] Comment on above: Performed By: #### MELANI TORRES, TRIG ####[facility] [address] [place] [address] BUN/CRE Ratio NOT REPORTED Normal - [facility] Comment on above: Performed By: #### MELANI TORRES, TRIG ####[facility] [address]nxxur[address] [place] [address] Staging: NOT REPORTED Normal [facility] Comment on above: Performed By: #### MELANI TORRES, TRIG ####[facility] [address]cfy[address] [place] [address] CBCon 01-12-2017 Erythrocyte distribution width Auto Ratio (RBC) 13.6 % Normal 12.5-15.4 [facility] Comment on above: Performed By: #### MELANI TORRES, TRIG ####[facility] [address]ytnwz[address] [place] [address] Erythrocytes (RBC) 3.46 10*6/uL Low 4.5-5.9 [facility] Comment on above: Performed By: #### [place] PARMAR BMP, TRIG ####[facility] Qpukubidmgkc9500 [place] [address] Hematocrit (HCT) 29.6 % Low 41-53 [facility] Comment on above: Performed By: #### [place] PARMAR BMP, TRIG ####[facility] MindsYpetioyflqnm2293 [place] [address] Hemoglobin mass conc (Bld) 10.1 g/dL Low 13.5-17.5 [facility] Comment on above: Performed By: #### C BC, BMP, TRIG ####[facility] Zottlhficdgj3769 [place] [address] MCH 29.1 pg Normal 26-34 [facility] Comment on above: Performed By: #### C BC, BMP, TRIG ####[facility] MindsKfihrscwysdq06[address] [place] [address] MCHC mass conc (RBC) 34.0 g/dL Normal 31-37 [facility] Comment on above: Performed By: #### C BC, BMP, TRIG ####[facility] MindsToaialgopujt716962 [place] [address] MCV 85.7 fL Normal 80-100 [facility] Comment on above: Performed By: #### C BC, BMP, TRIG ####[employer] [address] [place] [address] Platelet mean volume (PMV) 8.2 fL Normal 6.0-12.0 [facility] Comment on above: Result Comment: [facility] [employer] [facility] [place] [address] Performed By: #### C BC, BMP, TRIG ####[facility] MindsYgdtmajzvwaa[address] [place] [address] 24631 Platelets 662 10*3/uL High 140-450 [facility] Comment on above: Performed By: #### C BC, BMP, TRIG ####[employer] [address] [place] [address] WBC (Leukocytes) 12.6 10*3/uL High 3.5-11.0 [facility] Comment on above: Performed By: #### C BC, BMP, TRIG ####[address] [place] [address] Basic Metabolic Profon 01-11 (cont.) Normal [facility] Comment on above: Result Comment: Aver age GFR for 40-49 years old: 99 mL/min/1.73sq mChronic Kidney Disease: <60 mL/min/1.73sq mKidney failure: <15 mL/min/1.73sq meGFR calculated using average adult body mass. Additional eGFR calculator available at:http://www.Quikey/multiple_crcl_2012.htmKaren [place] [address] [place] [address] Performed By: #### [place] PARMAR BMP, TRIG ####[address] [place] [address] Anion gap 18 mmol/L High 9-17 [facility] Comment on above: Performed By: #### [place] PARMAR BMP, TRIG ####[employer] Tmyigcoilivt3141 [place] [address] Calcium 8.7 mg/dL Normal 8.6-10.4 [facility] Comment on above: Performed By: #### [place] PARMAR BMP, TRIG ####[address] [place] [address] Chloride 108 mmol/L High 98-107 [facility] Comment on above: Performed By: #### C BC BMP, TRIG ####[employer] [address]lamhvaiduvf1656 [place] [address] CO2 20 mmol/L Normal 20-31 [facility] Comment on above: Performed By: #### C BC, BMP, TRIG ####[employer] Pacjuljrwvpr0725 [place] [address] Creatinine 0.73 mg/dL Normal 0.70-1.20 [facility] Comment on above: Performed By: #### C BC BMP, TRIG ####[facility] Ipikcnonaawc2269 [place] [address] eGFR (non-black) mL/min/{1.73_m2} Normal >60 [facility] Comment on above: Performed By: #### C BC, BMP, TRIG ####[facility] Jjtnhrzpmhjm5806 [place] [address] Glucose mass conc 183 mg/dL High 70-99 [facility] Comment on above: Performed By: #### C BC, BMP, TRIG ####[employer] Yuygxyymvmct2267 [place] [address] Potassium molar conc 3.9 mmol/L Normal 3.7-5.3 [facility] Comment on above: Performed By: #### C BC, BMP, TRIG ####[employer] Ivvckvlkujbr4044 [place] [address] Sodium 146 mmol/L High 135-144 [facility] Comment on above: Performed By: #### C BC, BMP, TRIG ####[employer] Jfcghxlyqrak7431 [place] [address] Urea nitrogen 17 mg/dL Normal 6-20 [facility] Comment on above: Performed By: #### C BC, BMP, TRIG ####[employer] Atubxrvtoyxk0507 [place] [address] BUN/CRE Ratio NOT REPORTED Normal 9-20 [facility] Comment on above: Performed By: #### C BC, BMP, TRIG ####[employer] Hfradyfzpqtm9900 [place] [address] Staging: NOT REPORTED Normal [facility] Comment on above: Performed By: #### C BC, BMP, TRIG ####[employer] Irwrmizzocmp7383 [place] [address] CBCon 01-11-2017 Erythrocyte distribution width Auto Ratio (RBC) 13.5 % Normal 12.5-15.4 [facility] Comment on above: Performed By: #### C BC BMP, TRIG ####[address] [address] Erythrocytes (RBC) 3.38 10*6/uL Low 4.5-5.9 [facility] Comment on above: Performed By: #### C GHULAM BMP, TRIG ####[address] [address] Hematocrit (HCT) 29.8 % Low 41-53 [facility] Comment on above: Performed By: #### C GHULAM BMP, TRIG ####[address] [address] Hemoglobin mass conc (Bld) 9.8 g/dL Low 13.5-17.5 [facility] Comment on above: Performed By: #### C GHULAM BMP, TRIG ####[facility] [address] [place] [address] 99988 MCH 28.9 pg Normal 26-34 [facility] Comment on above: Performed By: #### C GHULAM BMP, TRIG ####[address] [address] MCHC mass conc (RBC) 32.9 g/dL Normal 31-37 [facility] Comment on above: Performed By: #### C BC BMP, TRIG ####[facility] Vcf[address] [place] [address]878 MCV 88.0 fL Normal 80-100 [facility] Comment on above: Performed By: #### C BC BMP, TRIG ####[address] [address] Platelet mean volume (PMV) 8.0 fL Normal 6.0-12.0 [facility] Comment on above: Result Comment: [address] [address] Performed By: #### C BC, BMP, TRIG ####[facility] Qvegrhpgncll3774 [place] [address] Platelets 689 10*3/uL High 140-450 [facility] Comment on above: Performed By: #### C BC, BMP, TRIG ####[facility] Xlwdnrbbvhsf1222 [place] [address] WBC (Leukocytes) 11.8 10*3/uL High 3.5-11.0 [facility] Comment on above: Performed By: #### C BC, BMP, TRIG ####[facility] Crkojyseueln5956 [place] [address] NG TUBE BY DR Annalisa MILLER OROon 01-11-[address] NG TUBE BY DR Annalisa SHELL PROCEDURE:XR PLACE NASOGASTRIC TUBE PHYS01/11/2017HISTORY:ORDERING SYSTEM PROVIDED HISTORY: unable to place Flexiflo at bedside. pt inCTO brace. Dr. Harrison (trauma resident) to be at bedside when placed in IR forbridle placementTECHNOLOGIST PROVIDED HISTORY:Reason for exam:->unable to place Flexiflo at bedside. pt in COMPONENT LAB TECH brace. (trauma resident) to be at bedside when placed in IR for bridle placementCONTRAST:AirSEDATIO N:NoneFLUOROSCOPY DOSE AND TYPE OR TIME AND EXPOSURES:Fluoroscopy time- 6.3 minutes. D AP -882.86DESCRIPTION OF PROCEDURE:Informed consent was obtained after a detailed explanation of the procedureincluding risks, benefits, and alternatives. Effort protocol wasobserved. With the patient in the [...] by:LISETH Jacksonigned by:Carlo Santos MD01/11/17Final result Normal [facility] Basic Metabolic Profon 01-10 (cont.) Normal [facility] Comment on above: Result Comment: Aver age GFR for 40-49 years old: 99 mL/min/1.73sq mChronic Kidney Disease: <60 mL/min/1.73sq mKidney failure: <15 mL/min/1.73sq meGFR calculated using average adult body mass. Additional eGFR calculator available at:http://www.Quikey/multiple_crcl_2012.htmRiverside Methodist [facility] [address] [place] [address] Performed By: #### [place] PARMAR BMP, TRIG ####[facility] MindsQmwhsarcavdn5495 [place] [address] Anion gap 13 mmol/L Normal 9-17 [facility] Comment on above: Performed By: #### [place] PARMAR BMP, TRIG ####[facility] MindsFxacvrmkoqyy9159 [place] [address] Calcium 8.7 mg/dL Normal 8.6-10.4 [facility] Comment on above: Performed By: #### [place] PARMAR BMP, TRIG ####[facility] MindsSmiduojssvzb3971 [place] [address] Chloride 111 mmol/L High 98-107 [facility] Comment on above: Performed By: #### [place] BC BMP, TRIG ####[employer] [address]qdgbtvgxa1956 [place] [address] CO2 24 mmol/L Normal 20-31 [facility] Comment on above: Performed By: #### C BC BMP, TRIG ####[facility] MindsIqbkrnbqegwq2653 [place] [address] Creatinine 0.78 mg/dL Normal 0.70-1.20 [facility] Comment on above: Performed By: #### C BC, BMP, TRIG ####[facility] Ldauhkjbusfi1485 [place] [address] eGFR (non-black) mL/min/{1.73_m2} Normal >60 [facility] Comment on above: Performed By: #### C BC, BMP, TRIG ####[facility] Imfimkkkkzoi1962 [place] [address] Glucose mass conc 167 mg/dL High 70-99 [facility] Comment on above: Performed By: #### C BC, BMP, TRIG ####[employer] Ekuycalfevzi9842 [place] [address] Potassium molar conc 4.4 mmol/L Normal 3.7-5.3 [facility] Comment on above: Performed By: #### C BC, BMP, TRIG ####[facility] Jkmgfbjxdrfr8491 [place] [address] Sodium 148 mmol/L High 135-144 [facility] Comment on above: Performed By: #### C BC, BMP, TRIG ####[facility] Ddxqoptlqhaw3085 [place] [address] Urea nitrogen 26 mg/dL High 6-20 [facility] Comment on above: Performed By: #### C BC, BMP, TRIG ####[facility] Zyupkukzwifg2136 [place] [address] BUN/CRE Ratio NOT REPORTED Normal 9-20 [facility] Comment on above: Performed By: #### C BC, BMP, TRIG ####[employer] Sqfknkzqakmg9365 [place] [address] Staging: NOT REPORTED Normal [facility] Comment on above: Performed By: #### C BC, BMP, TRIG ####[employer] Cnnrmzlkpdjm0148 [place] [address] CBCon 01-10-2017 Erythrocyte distribution width Auto Ratio (RBC) 13.8 % Normal 12.5-15.4 [facility] Comment on above: Performed By: #### C BC BMP, TRIG ####[facility] [address]ks[address] [place] [address] Erythrocytes (RBC) 3.39 10*6/uL Low 4.5-5.9 [facility] Comment on above: Performed By: #### C BC BMP, TRIG ####[facility] [address] [address] Hematocrit (HCT) 29.6 % Low 41-53 [facility] Comment on above: Performed By: #### C GHULAM BMP, TRIG ####[facility] [address]qw[address] [place] [address] Hemoglobin mass conc (Bld) 10.1 g/dL Low 13.5-17.5 [facility] Comment on above: Performed By: #### C GHULAM BMP, TRIG ####[facility] Djruptlitcsr[address] [place] [address] 39276 MCH 29.7 pg Normal 26-34 [facility] Comment on above: Performed By: #### C GHULAM BMP, TRIG ####[address] [address] MCHC mass conc (RBC) 34.0 g/dL Normal 31-37 [facility] Comment on above: Performed By: #### C BC BMP, TRIG ####[facility] Inky[address]qfdkwf[address] [place] [address]703 MCV 87.5 fL Normal 80-100 [facility] Comment on above: Performed By: #### C GHULAM BMP, TRIG ####[facility] [place] [address] Platelet mean volume (PMV) 8.5 fL Normal 6.0-12.0 [facility] Comment on above: Result Comment: [address] [address] Performed By: #### C BC, BMP, TRIG ####[facility] Sshvjkopjjtb1680 [place] [address] Platelets 816 10*3/uL High 140-450 [facility] Comment on above: Performed By: #### C BC, BMP, TRIG ####[facility] Ydbhhkcmuzmt4183 [place] [address] WBC (Leukocytes) 11.2 10*3/uL High 3.5-11.0 [facility] Comment on above: Performed By: #### C GHULAM, BMP, TRIG ####[facility] [address] [address] Basic Metabolic Profon 01-09 (cont.) Normal [facility] Comment on above: Result Comment: Aver age GFR for 40-49 years old: 99 mL/min/1.73sq mChronic Kidney Disease: <60 mL/min/1.73sq mKidney failure: <15 mL/min/1.73sq meGFR calculated using average adult body mass. Additional eGFR calculator available at:http://www.[employer].Vive Unique/multiple_crcl_2012.htmSierra Nevada Memorial Hospital [address] [place] [address] Performed By: #### C BC, BMP, TRIG ####[facility] [address]pss[address]ml[address] [place] [address] Anion gap 17 mmol/L Normal 9-17 [facility] Comment on above: Performed By: #### C GHULAM, BMP, TRIG ####[facility] Xqrxxkkvzxgx5811 [place] [address] Calcium 8.9 mg/dL Normal 8.6-10.4 [facility] Comment on above: Performed By: #### C GHULAM, BMP, TRIG ####[facility] Nipfoufcajqi3098 [place] [address] Chloride 105 mmol/L Normal 98-107 [facility] Comment on above: Performed By: #### C BC, BMP, TRIG ####[facility] Zpfpetuondtt1985 [place] [address] CO2 24 mmol/L Normal 20-31 [facility] Comment on above: Performed By: #### C BC, BMP, TRIG ####[employer] Rwmqqinfnjjf3537 [place] [address] Creatinine 0.80 mg/dL Normal 0.70-1.20 [facility] Comment on above: Performed By: #### C BC, BMP, TRIG ####[facility] Xfexyubsrrpo1102 [place] [address] eGFR (non-black) mL/min/{1.73_m2} Normal >60 [facility] Comment on above: Performed By: #### C BC, BMP, TRIG ####[employer] Dpexbagfzqir8267 [place] [address] Glucose mass conc 231 mg/dL High 70-99 [facility] Comment on above: Performed By: #### C BC, BMP, TRIG ####[employer] Zlnspthciplp3117 [place] [address] Potassium molar conc 4.9 mmol/L Normal 3.7-5.3 [facility] Comment on above: Performed By: #### C BC, BMP, TRIG ####[facility] Bppuuuakwlob6293 [place] [address] Sodium 146 mmol/L High 135-144 [facility] Comment on above: Performed By: #### C BC, BMP, TRIG ####[facility] Sejcpovwasux1976 [place] [address] Urea nitrogen 33 mg/dL High 6-20 [facility] Comment on above: Performed By: #### C BC, BMP, TRIG ####[employer] Oqhieogsexop0515 [place] [address] BUN/CRE Ratio NOT REPORTED Normal 9-20 [facility] Comment on above: Performed By: #### C BC, BMP, TRIG ####[facility] [address]Vlpwsgmurtqu[address] [place] [address] Staging: NOT REPORTED Normal [facility] Comment on above: Performed By: #### C BC, BMP, TRIG ####[facility] AmaroMfloifiqcjzk54[address] [place] [address] CBCon 01-09-2017 Erythrocyte distribution width Auto Ratio (RBC) 13.4 % Normal 12.5-15.4 [facility] Comment on above: Performed By: #### C BC, BMP, TRIG ####[facility] Oeucwytutuse[address] [place] [address] Erythrocytes (RBC) 3.62 10*6/uL Low 4.5-5.9 [facility] Comment on above: Performed By: #### C BC, BMP, TRIG ####[facility] [address]ra[address]sfmad[address] [place] [address] Hematocrit (HCT) 32.1 % Low 41-53 [facility] Comment on above: Performed By: #### C BC, BMP, TRIG ####[facility] Vrjthfqvwnbk8070 [place] [address] Hemoglobin mass conc (Bld) 10.7 g/dL Low 13.5-17.5 [facility] Comment on above: Performed By: #### C BC, BMP, TRIG ####[facility] Anvjdescjogs5073 [place] [address] MCH 29.5 pg Normal 26-34 [facility] Comment on above: Performed By: #### C BC, BMP, TRIG ####[facility] Hnnsgjbrvcju4145 [place] [address] MCHC mass conc (RBC) 33.3 g/dL Normal 31-37 [facility] Comment on above: Performed By: #### C BC BMP, TRIG ####[facility] [address] [address] MCV 88.7 fL Normal 80-100 [facility] Comment on above: Performed By: #### C BC, BMP, TRIG ####[facility] Sxlyqrwrepmq3312 [place] [address] Platelet mean volume (PMV) 8.3 fL Normal 6.0-12.0 [facility] Comment on above: Result Comment: [address] [address] Performed By: #### C GHULAM BMP, TRIG ####[facility] [address] [address] Platelets 798 10*3/uL High 140-450 [facility] Comment on above: Performed By: #### C BC BMP, TRIG ####[facility] [address] [address] WBC (Leukocytes) 15.7 10*3/uL High 3.5-11.0 [facility] Comment on above: Performed By: #### C BC, BMP, TRIG ####[address] [address] Basic Metabolic Profon 01-08 (cont.) Normal [facility] Comment on above: Result Comment: Aver age GFR for 40-49 years old: 99 mL/min/1.73sq mChronic Kidney Disease: <60 mL/min/1.73sq mKidney failure: <15 mL/min/1.73sq meGFR calculated using average adult body mass. Additional eGFR calculator available at:http://www.[employer].Vive Unique/multiple_crcl_2012.htm[address] [address] Performed By: #### C BC, BMP, TRIG ####[facility] [address] [place] [address] Anion gap 15 mmol/L Normal 9-17 [facility] Comment on above: Performed By: #### C BC, BMP, TRIG ####[facility] Powtpemapesa9240 [place] [address] Calcium 9.0 mg/dL Normal 8.6-10.4 [facility] Comment on above: Performed By: #### C GHULAM, BMP, TRIG ####[facility] Zllfhqpxicea8078 [place] [address] Chloride 99 mmol/L Normal 98-107 [facility] Comment on above: Performed By: #### C GHULAM, BMP, TRIG ####[facility] Ouhmvjgzelpz0372 [place] [address] CO2 26 mmol/L Normal 20-31 [facility] Comment on above: Performed By: #### C GHULAM, BMP, TRIG ####[facility] Nykvqovcegss4625 [place] [address] Creatinine 0.80 mg/dL Normal 0.70-1.20 [facility] Comment on above: Performed By: #### C BC, BMP, TRIG ####[facility] Fboungojtgkw8929 [place] [address] eGFR (non-black) mL/min/{1.73_m2} Normal >60 [facility] Comment on above: Performed By: #### C BC, BMP, TRIG ####[facility] Vzfuyznnusij0087 [place] [address] Glucose mass conc 144 mg/dL High 70-99 [facility] Comment on above: Performed By: #### C BC, BMP, TRIG ####[facility] Wcsxnecmbgys2020 [place] [address] Potassium molar conc 4.2 mmol/L Normal 3.7-5.3 [facility] Comment on above: Performed By: #### C BC, BMP, TRIG ####[facility] Uchwphvfosje8772 [place] [address] Sodium 140 mmol/L Normal 135-144 [facility] Comment on above: Performed By: #### C BC, BMP, TRIG ####[employer] Zlzpjvkfnxjw4652 [place] [address] Urea nitrogen 28 mg/dL High 12-29 [facility] Comment on above: Performed By: #### C BC, BMP, TRIG ####[employer] Robxklcjpjse9717 [place] [address] BUN/CRE Ratio NOT REPORTED Normal 03-31 [facility] Comment on above: Performed By: #### C BC, BMP, TRIG ####[facility] Vxlyvmlslyow7658 [place] [address] Staging: NOT REPORTED Normal [facility] Comment on above: Performed By: #### C BC, BMP, TRIG ####[employer] Wmrarxgzrsqb3482 [place] [address] CBCon 01-08-2017 Erythrocyte distribution width Auto Ratio (RBC) 13.8 % Normal 12.5-15.4 [facility] Comment on above: Performed By: #### C BC, BMP ####[facility] Agaymsojotqb8243 [place] [address] Erythrocytes (RBC) 3.37 10*6/uL Low 4.5-5.9 [facility] Comment on above: Performed By: #### C BC, BMP ####[facility] Gqyldtgoimjc7432 [place] [address] Hematocrit (HCT) 29.8 % Low 41-53 [facility] Comment on above: Performed By: #### C BC, BMP ####[facility] Dxhgbtlsoyxm9728 [place] [address] Hemoglobin mass conc (Bld) 9.9 g/dL Low 13.5-17.5 [facility] Comment on above: Performed By: #### C BC, BMP ####[facility] Xdbbtyzonufz4104 [place] [address] MCH 29.3 pg Normal 26-34 [facility] Comment on above: Performed By: #### C BC, BMP ####[address] [place] [address] MCHC mass conc (RBC) 33.2 g/dL Normal 31-37 [facility] Comment on above: Performed By: #### C BC, BMP ####[address] [address] MCV 88.4 fL Normal 80-100 [facility] Comment on above: Performed By: #### C BC, BMP ####[address] [address] Platelet mean volume (PMV) 8.3 fL Normal 6.0-12.0 [facility] Comment on above: Result Comment: [facility] [address] [place] [address] Performed By: #### C BC, BMP ####[address] [address] Platelets 802 10*3/uL High 140-450 [facility] Comment on above: Performed By: #### C BC, BMP ####[facility] [place] [address] WBC (Leukocytes) 11.6 10*3/uL High 3.5-11.0 [facility] Comment on above: Performed By: #### C BC, BMP ####[address] [address] Basic Metabolic Profon 01-07 (cont.) Normal [facility] Comment on above: Result Comment: Aver age GFR for 40-49 years old: 99 mL/min/1.73sq mChronic Kidney Disease: <60 mL/min/1.73sq mKidney failure: <15 mL/min/1.73sq meGFR calculated using average adult body mass. Additional eGFR calculator available at:http://www.[employer].Vive Unique/multiple_crcl_2012.htmSierra Nevada Memorial [facility] [address] [place] [address] Performed By: #### C BC, BMP ####[facility] [place] [address] Anion gap 15 mmol/L Normal 9-17 [facility] Comment on above: Performed By: #### C BC, BMP ####[address] [address] Calcium 9.3 mg/dL Normal 8.6-10.4 [facility] Comment on above: Performed By: #### C BC, BMP ####[facility] [address]zwt[address] [place] [address] Chloride 97 mmol/L Low 98-107 [facility] Comment on above: Performed By: #### C BC, BMP ####[facility] [address] [place] [address] CO2 29 mmol/L Normal 20-31 [facility] Comment on above: Performed By: #### C BC, BMP ####[facility] [address]ujkwjzf[address] [place] [address] Creatinine 0.97 mg/dL Normal 0.70-1.20 [facility] Comment on above: Performed By: #### C BC, BMP ####[facility] Qzskmijqxeud0472 [place] [address] eGFR (non-black) mL/min/{1.73_m2} Normal >60 [facility] Comment on above: Performed By: #### C BC, BMP ####[facility] [address] [place] [address] Glucose mass conc 120 mg/dL High 70-99 [facility] Comment on above: Performed By: #### C BC, BMP ####[facility] AmaroUapkxxuoyehw0854 [place] [address] Potassium molar conc 4.3 mmol/L Normal 3.7-5.3 [facility] Comment on above: Performed By: #### C BC, BMP ####[facility] Pvajfuqensvw5832 [place] [address] Sodium 141 mmol/L Normal 135-144 [facility] Comment on above: Performed By: #### C BC, BMP ####[facility] AmaroPoqzazteogkd6326 [place] [address] Urea nitrogen 26 mg/dL High 6-20 [facility] Comment on above: Performed By: #### C BC, BMP ####[facility] AmaroHincjmcnewwz4817 [place] [address] BUN/CRE Ratio NOT REPORTED Normal - [facility] Comment on above: Performed By: #### C BC, BMP ####[facility] AmaroDlpeujfowbry6704 [place] [address] Staging: NOT REPORTED Normal [facility] Comment on above: Performed By: #### C BC, BMP ####[facility] AmaroFdswnydzfsfh8675 [place] [address] CBCon 01-07-2017 Erythrocyte distribution width Auto Ratio (RBC) 13.7 % Normal 12.5-15.4 [facility] Comment on above: Performed By: #### C BC, BMP ####[facility] AmaroQcrmjdcssrhd9808 [place] [address] Erythrocytes (RBC) 3.66 10*6/uL Low 4.5-5.9 [facility] Comment on above: Performed By: #### C BC, BMP ####[facility] [place] [address] Hematocrit (HCT) 32.3 % Low 41-53 [facility] Comment on above: Performed By: #### C BC, BMP ####[facility] [place] [address] Hemoglobin mass conc (Bld) 10.6 g/dL Low 13.5-17.5 [facility] Comment on above: Performed By: #### C BC, BMP ####[address] [address] MCH 29.0 pg Normal 26-34 [facility] Comment on above: Performed By: #### C BC, BMP ####[address] [address] MCHC mass conc (RBC) 32.9 g/dL Normal 31-37 [facility] Comment on above: Performed By: #### C BC, BMP ####[address] [address] MCV 88.2 fL Normal 80-100 [facility] Comment on above: Performed By: #### C BC, BMP ####[facility] [place] [address] Platelet mean volume (PMV) 8.3 fL Normal 6.0-12.0 [facility] Comment on above: Result Comment: [facility] [address] [place] [address] Performed By: #### C BC, BMP ####[address] [address] Platelets 793 10*3/uL High 140-450 [facility] Comment on above: Performed By: #### C BC, BMP ####[address] [place] [address] WBC (Leukocytes) 11.8 10*3/uL High 3.5-11.0 [facility] Comment on above: Performed By: #### C BC, [facility] ####[facility] [place] [address] CT HEAD WO CONTRASTon 2016 CT HEAD [...] by:Kun Hager MD01/07/17Edited Result - FINAL Normal [facility] XR CHEST LIMITEDon 7 XR [...] by:Ayad Rodney MD01/07/17Edited Result - FINAL Normal [facility] XR CHEST PORTABLEon 01-08-20 17 XR CHEST PORTABLE EXAMINATION:SINGLE V IEW [...] densities with mildresidual.Interpreted by:LISETH Cruzigned by:Kun Hager MD/Final result Normal [facility] Basic Metabolic Profon 01-06 (cont.) Normal [facility] Comment on above: Result Comment: Aver age GFR for 40-49 years old: 99 mL/min/1.73sq mChronic Kidney Disease: <60 mL/min/1.73sq mKidney failure: <15 mL/min/1.73sq meGFR calculated using average adult body mass. Additional eGFR calculator available at:http://[email or web address].Vive [email or web address]_crcl_[email or web address] [facility] [address] [place] [address] Performed By: #### C BC, BMP, TRIG ####[facility]vi[facility] [place] [address] Anion gap 20 mmol/L High -17 [facility] Comment on above: Performed By: #### C BC, BMP, TRIG ####[employer] [address] [place] [address] Calcium 9.4 mg/dL Normal 8.6-10.4 [facility] Comment on above: Performed By: #### C BC, BMP, TRIG ####[address] [place] [address] Chloride 98 mmol/L Normal 98-107 [facility] Comment on above: Performed By: #### C BC, BMP, TRIG ####[employer] [address] [place] [address] CO2 25 mmol/L Normal 20-31 [facility] Comment on above: Performed By: #### C BC, BMP, TRIG ####[facility] [address] [place] [address] Creatinine 1.09 mg/dL Normal 0.70-1.20 [facility] Comment on above: Performed By: #### C BC, BMP, TRIG ####[facility] [address] [place] [address] eGFR (non-black) mL/min/{1.73_m2} Normal >60 [facility] Comment on above: Performed By: #### C BC, BMP, TRIG ####[employer] [address] [place] [address] Glucose mass conc 193 mg/dL High 70-99 [facility] Comment on above: Performed By: #### C BC, BMP, TRIG ####[facility] [address] [place] [address] Potassium molar conc 4.3 mmol/L Normal 3.7-5.3 [facility] Comment on above: Performed By: #### C BC, BMP, TRIG ####[facility]sQijvqqonwgog[address] [place] [address] Sodium 143 mmol/L Normal 135-144 [facility] Comment on above: Performed By: #### C BC, BMP, TRIG ####[facility] MindsRjuhifsjzgsu[address] [place] [address] Urea nitrogen 25 mg/dL High 6-20 [facility] Comment on above: Performed By: #### C BC, BMP, TRIG ####[facility] [address] [place] [address] BUN/CRE Ratio NOT REPORTED Normal 9-20 [facility] Comment on above: Performed By: #### C BC, BMP, TRIG ####[facility] [address] [place] [address] Staging: NOT REPORTED Normal [facility] Comment on above: Performed By: #### C BC, BMP, TRIG ####[facility] MindsOamswedfmgwa[address] [place] [address] CBCon 01-06-2017 Erythrocyte distribution width Auto Ratio (RBC) 14.3 % Normal 12.5-15.4 [facility] Comment on above: Performed By: #### C GHULAM BMP, TRIG ####[address] [address] Erythrocytes (RBC) 3.44 10*6/uL Low 4.5-5.9 [facility] Comment on above: Performed By: #### C GHULAM BMP, TRIG ####[address] [address] Hematocrit (HCT) 30.3 % Low 41-53 [facility] Comment on above: Performed By: #### C GHULAM BMP, TRIG ####[address] [address] Hemoglobin mass conc (Bld) 9.9 g/dL Low 13.5-17.5 [facility] Comment on above: Performed By: #### C GHULAM BMP, TRIG ####[facility] [address] [place] [address] MCH 28.8 pg Normal 26-34 [facility] Comment on above: Performed By: #### C GHULAM BMP, TRIG ####[address] [address] MCHC mass conc (RBC) 32.7 g/dL Normal 31-37 [facility] Comment on above: Performed By: #### C GHULAM BMP, TRIG ####[address] [address] MCV 88.3 fL Normal 80-100 [facility] Comment on above: Performed By: #### C GHULAM, BMP, TRIG ####[facility] [place] [address] Platelet mean volume (PMV) 8.5 fL Normal 6.0-12.0 [facility] Comment on above: Result Comment: [facility] [place] [address] Performed By: #### C MELANI PARMAR, TRIG ####[facility]Equs[address]mgsio[address] [place] [address] Platelets 738 10*3/uL High 140-450 [facility] Comment on above: Performed By: #### C MELANI PARMAR, TRIG ####[facility]sPlvbtqmscdnj[address] [place] [address] WBC (Leukocytes) 11.5 10*3/uL High 3.5-11.0 [facility] Comment on above: Performed By: #### C MELANI PARMAR, TRIG ####[facility]sSl[address] [place] [address] Triglycerideson 01-06-2017 Triglyceride 420 mg/dL High <150 [facility] Comment on above: Result Comment: Trig lyceride Guidelines: <150 Desirable 150- 199 Borderline 200-499 High >499 Very high Based on AHA Guidelines for fasting triglyceride, April 2012.[address] [place] [address] Performed By: #### C MELANI PARMAR, TRIG ####[facility]sJxdqsszkteth[address] [place] [address] XR CHEST PORTABLEon 01-07-20 17 XR CHEST [...] by:LISETH Cruzigned by:Kun Hager MD01/06/17Final result Normal [facility] Vital Signs Date Time Vital Sign Value Performing Clinician Facility 02-28-2024 10:28-0400 Blood Pressure Location Jacky JONES [facility] 02-28-2024 10:28-0400 Diastolic blood pressure 88 mm[Hg] Jacky JONES [facility] 02-28-2024 10:28-0400 Heart rate 70 /min Jacky JONES [facility] 02-28-2024 10:28-0400 Respiratory rate 16 /min Jacky JONES [facility] 02-28-2024 10:28-0400 Systolic blood pressure 168 mm[Hg] Jacky JONES [facility] 01-10-2024 12:25-0400 Diastolic blood pressure 94 mm[Hg] Jacky JONES [facility] 01-10-2024 12:25-0400 Mean blood pressure 118 mm[Hg] Jacky JONES [facility] 01-10-2024 12:25-0400 Systolic blood pressure 167 mm[Hg] Jacky JONES [facility] 01-10-2024 12:08-0400 Blood Pressure Location Jacky ROBERT [facility] 01-10-2024 12:08-0400 Diastolic blood pressure 94 mm[Hg] Jacky JONES [facility] 01-10-2024 12:08-0400 Heart rate 84 /min Jacky ROBERT [facility] 01-10-2024 12:08-0400 Respiratory rate 16 /min Jacky ROBERT [facility] 01-10-2024 12:08-0400 Systolic blood pressure 176 mm[Hg] Jacky JONES [facility] 12-30-2021 08:26-0400 Blood Pressure Location Oc Becker Jr. [facility] 12-30-2021 08:26-0400 Diastolic blood pressure 66 mm[Hg] Oc Becker Jr. [facility] 12-30-2021 08:26-0400 Heart rate 72 /min Oc Becker Jr. [facility] 12-30-2021 08:26-0400 Respiratory rate 16 /min Oc Becker Jr. [facility] 12-30-2021 08:26-0400 Systolic blood pressure 103 mm[Hg] Oc Becker Jr. [facility] 12-02-2021 08:18-0400 Blood Pressure Location Oc Becker Jr. [facility] 12-02-2021 08:18-0400 Diastolic blood pressure 80 mm[Hg] Oc Becker Jr. [facility] 12-02-2021 08:18-0400 Heart rate 79 /min Oc Becekr Jr. [facility] 12-02-2021 08:18-0400 Respiratory rate 16 /min Oc Becker Jr. [facility] 12-02-2021 08:18-0400 Systolic blood pressure 127 mm[Hg] Oc Becker Jr. [facility] 11-18-2021 14:23-0400 Blood Pressure Location Chapo ROYL [facility] [place] 11-18-2021 14:23-0400 Diastolic blood pressure 80 mm[Hg] Chapo NILL [facility] 11-18-2021 14:23-0400 Heart rate 68 /min Chapo NILL [facility] 11-18-2021 14:23-0400 Respiratory rate 16 /min Chapo NILL [facility] [place] 11-18-2021 14:23-0400 Systolic blood pressure 116 mm[Hg] Chapo NILL [facility] 02-09-2019 14:22-0400 BMI (Body Mass Index) 31.02 kg/m2 Xochitl Matan [facility] Work Phone: 02-09-2019 14:22-0400 Body Temperature 97.9 [degF] Xochitl Matan [facility] Work Phone: Comment on above: Method: Temporal 02-09-2019 14:22-0400 Body weight 95.28 kg Xochitl Matan [facility] Work Phone: 02-09-2019 14:22-0400 BP Diastolic 106 mm[Hg] Xochitl Maronian [facility] Work Phone: Comment on above: Position: Sitting 02-09-2019 14:22-0400 BP Systolic 164 mm[Hg] Xochitl Maronian [facility] Work Phone: Comment on above: Position: Sitting 02-09-2019 14:22-0400 BSA (Body Surface Area) 2.11 m2 Xochitl Ponceonian [facility] Work Phone: 02-09-2019 14:22-0400 Height 175.26 cm Xochitl Maronian [facility] Work Phone: 02-09-2019 14:22-0400 Pulse (Heart Rate) 80 /min Xochitl Maronian [facility] Work Phone: 02-09-2019 14:22-0400 Pulse Oximetry 99 % Xochitl Rosarioonian [facility] Work Phone: Comment on above: Source: RA Encounters Encounter Date Encounter Type Care Provider Facility Start: 07-03-2024 ambulatory Jacky Joyner JONES Facili ty:[facility] Start: 02-28-2024 End: 02-28-2024 ambulatory ROGERIO S RUSHER Not Available Start: 02-28-2024 End: 02-28-2024 ambulatory Jacky JONES Facility:[facility] Start: 02-28-2024 End: 02-28-2024 Patient encounter procedure Jacky JONES [facility] Start: 01-10-2024 End: 01-10-2024 ambulatory Jacky JONES Facility:[facility] Start: 01-10-2024 End: 01-10-2024 Patient encounter procedure Jacky JONES [facility] Start: 11-02-2023 ambulatory Jacky JONES Facility :[facility] Start: 10-20-2023 End: 10-20-2023 ambulatory ROGERIO S RUSHER Not Available Start: 08-11-2023 End: 08-11-2023 ambulatory ROGERIO S RUSHER Not Available Start: 07-15-2023 End: 07-15-2023 ambulatory Jesus Lucas Facility:[facility] Start: 07-15-2023 End: 07-15-2023 Discharged Recurring MD Jesus Lucas Work Phone: [facility] [employer] Start: 02-22-2023 End: 02-22-2023 ambulatory JUANJOSE FOSTER [facility] Start: 12-09-[address] JESUS LUCAS . Facili ty:[facility] Start: 12-02-2022 End: 12-02-2022 ambulatory RODNEY PEREZ Facility:[facility] Start: 11-27-2022 Encounter for other preprocedural examination RODNEY PEREZ [facility] Start: 11-23-2022 End: 11-24-[address] JESUS LUCAS . Facility:[facility] Start: 11-23-2022 End: 11-24-2022 Encounter for other preprocedural examination DR JESUS LUCAS . Facility:[facility] Start: 11-17-2022 End: 11-18-[address] JESUS LUCAS . Facility:[facility] Start: 11-12-2022 End: 11-13-2022 ambulatory RODNEY Aguayo [facility] Facility:[facility] Start: 11-10-2022 End: 11-11-[address] JESUS LUCAS . Facility:[facility] Start: 11-04-2022 End: 11-05-[address] JESUS LUCAS . Facility:[facility] Start: 10-27-2022 End: 10-28-[address] JESUS LUCAS . Facility:[facility] Start: 10-26-2022 End: 11-10-[address] JESUS LUCAS . Facility:[facility] Start: 10-22-2022 End: 10-23-[address] JESUS LUCAS . Facility:[facility] Start: 10-19-2022 End: 10-19-2022 ambulatory JUANJOSE [facility] Start: 10-15-2022 End: 10-16-[address] JESUS [...] Facility:[facility] Start: 09-08-2022 End: 09-09-2022 [facility] Start: 09-04-2022 End: 09-05-2022 ambulatory RODNEY Aguayo [facility] Facility:[facility] Start: 09-02-2022 End: 09-03-2022 ambulatory RODNEY PEREZ Facility:[facility] Start: 08-31-2022 End: 09-01-2022 ambulatory RODNEY LIAOANDER Facility:[facility] Start: 08-28-2022 End: 08-29-2022 ambulatory RODNEY LAIOANDER Facility:[facility] Start: 08-26-2022 End: 08-27-2022 ambulatory RODNEY Aguayo [facility] Facility:[facility] Start: 08-24-2022 End: 08-25-2022 ambulatory RODNEY LIAOANDER Facility:[facility] Start: 08-21-2022 End: 08-22-2022 ambulatory RODNEY LIAOANDER Facility:[facility] Start: 08-18-2022 End: 08-19-2022 ambulatory RODNEY PEREZ Facility:[facility] Start: 08-13-2022 End: 08-13-2022 ambulatory RODNEY PEREZ Facility:[facility] Start: 08-12-2022 Encounter for preprocedural laboratory examination RODNEY Dede [facility]NGE[facility] Start: 08-12-[address] JESUS LUCAS . Facili ty:[facility]1 Start: 08-10-2022 End: 08-11-2022 ambulatory RODNEY PEREZ Facility:[facility] Start: 08-10-2022 End: 08-11-2022 Encounter for preprocedural laboratory examination RODNEY PEREZ Facility:[facility] Start: 08-07-2022 Encounter for preprocedural cardiovascular examination [facility] Dede PEREZ [facility] Start: 08-07-2022 Encounter for preprocedural laboratory examination RODNEY PEREZ [facility] Start: 08-05-2022 End: 08-06-2022 ambulatory RODNEY Aguayo KESHAWNANGELLA Facility:[facility] Start: 08-05-2022 End: 08-06-2022 Encounter for preprocedural cardiovascular examination RODNEY Dede KESHAWNANGELLA Facility:[facility]1 Start: 07-24-2022 End: 07-24-2022 ambulatory RODNEY LIAOANGELLA Facility:[facility] Start: 07-24-2022 End: 07-25-2022 ambulatory RODNEY LIAOANGELLA Facility:[facility] Start: 07-21-2022 End: 07-22-[address] JESUS LUCAS . Facility:[facility] Start: 07-20-2022 End: 07-20-2022 ambulatory JUANJOSE [facility] Start: 07-14-2022 End: 07-15-2022 ambulatory RODNEY PEREZ Facility:[facility] Start: 06-29-2022 End: 06-30-2022 ambulatory RODNEY PEREZ Facility:[facility] Start: 06-16-2022 End: 06-17-2022 ambulatory RODNEY PEREZ Facility:[facility] Start: 06-11-2022 End: 06-12-2022 ambulatory [facility] Start: 06-10-2022 End: 06-11-2022 ambulatory RODNEY PEREZ Facility:[facility] Start: 05-29-2022 End: 05-30-2022 ambulatory RODNEY PEREZ Facility:[facility] Start: 05-25-2022 End: 05-26-[address] JESUS LUCAS . Facility:[facility] Start: 05-22-2022 End: 05-23-2022 ambulatory RODNEY PEREZ Facility:[facility] Start: 05-18-2022 End: 05-18-2022 ambulatory [facility] Start: 05-15-2022 End: 05-16-2022 ambulatory RODNEY PEREZ Facility:[facility] Start: 04-27-2022 End: 04-28-2022 ambulatory RODNEY PEREZ Facility:[facility] Start: 04-24-2022 End: 04-25-2022 ambulatory ARAM CRANDALL Facility:[facility]1 Start: 04-17-2022 End: 04-18-2022 ambulatory RODNEY Dede PEREZ Facility:[facility] Start: 03-31-2022 End: 04-01-[address] JESUS LUCAS . Facility:[facility] Start: 03-30-2022 End: 03-31-2022 ambulatory RODNEY PEREZ Facility:[facility] Start: 03-26-2022 End: 03-27-[address] JESUS LUCAS . Facility:[facility] Start: 03-18-2022 End: 03-19-[address] JESUS LUCAS . Facility:[facility] Start: 03-17-2022 End: 03-17-2022 ambulatory MD Jesus Lucas Work Phone: [facility] Work Phone: Start: 03-17-2022 End: 03-17-2022 Discharged Recurring MD Jesus Lucas Work Phone: [facility] [employer] Start: 03-05-2022 End: 03-06-[address] JESUS LUCAS . Facility:[facility] Start: 01-06-2022 End: 01-07-[address] JESUS LUCAS . Facility:[facility] Start: 12-31-2021 End: 12-31-[address] JESUS LUCAS . Facility:[facility] Start: 12-30-2021 End: 12-30-2021 Patient encounter procedure Oc Becker Jr. [facility] Start: 12-27-2021 End: 12-28-[address] JESUS LUCAS . Facility:[facility] Start: 12-02-2021 End: 12-02-2021 Patient encounter procedure Oc Becker Jr. [facility] Start: 11-18-2021 End: 11-18-2021 Patient encounter procedure Chapo ZAMBRANO [facility] Start: 02-09-2019 Patient encounter procedure Xochitl Marjan UI-Hvvqlecbnrxmpb-L [facility] Work Phone: Start: 11-22-2018 Patient encounter procedure Xochitl Marjan RC-Mqeijgeabvybkz-K [facility] Work Phone: Start: 02-10-2018 Patient encounter procedure Xochitl Marjan GE-Zigkshwivlyujd-I [facility] Work Phone: Start: 05-06-2017 Patient encounter procedure Xochitl Marjan KS-Kvsllzsabdzszx-C [facility] Work Phone: Start: 04-19-2017 Patient encounter procedure Xochitl Marjan PJ-Zmknhtlbktcitd-T [facility] Work Phone: Start: 04-01-2017 Patient encounter procedure Xochitl Harman RD-Lwtxkjdzcscxdx-O [facility] Work Phone: Start: 03-16-2017 Patient encounter procedure Xochitl SCHAEFERQW-Wviteohhiiussg-W [facility] Work Phone: Start: 03-10-2017 End: 03-11-2017 Ambulatory KEMITROYRamesh RAMOS [facility] Procedures Date Procedure Procedure Detail Performing Clinician Start: 02-09-2019 CT Neck without Contrast Xochitl Harman Start: 03-10-2017 Ct thoracic spine w/o contrast material BRAEDENYORDYADRIENNEIAM ASHTYNLITZY Start: 03-10-2017 Ct cervical spine w/o contrast material BEREIRAADRIENNEIAM RACHEL Start: 03-10-2017 Esophagogastroduodenoscopy Chapo NILL Start: 03-10-2017 Percutaneous endoscopic gastrostomy Chapo NILL Start: 03-07-2010 Chondrectomy of semilunar cartilage of knee Chapo NILL Arthroscopically aid ed anterior cruciate ligament reconstruction Chapo NILL Dilation of esophagus Tru cortez NILL History of Feeding Tube Jimmy Benton History of Knee Surgery Jimmy Benton Payers Date Payer Category Payer Self-pay [id number] 2022 Medicaid [id number] 2016 Unknown [id number] 1969 Unknown [id number] 2.16.84 0.1.760529.3.579.2.593 1969 Unknown [id number] 2.16.84 0.1.986531.3.579.2.593 1969 Unknown [id number] 2.16.84 0.1.410197.3.579.2.593 1969 Unknown [id number] 2.16.84 0.1.698694.3.579.2.593 1969 Unknown [id number] 2.16.84 0.1.231915.3.579.2.593 1969 Unknown [id number] 2.16.84 0.1.085371.3.579.2.593 1969 Unknown [id number] 2.16.84 0.1.068359.3.579.2.593 1969 Unknown [id number] 2.16.84 0.1.963567.3.579.2.593 1969 Unknown [id number] 2.16.84 0.1.533571.3.579.2.593 1969 Unknown [id number] 2.16.84 0.1.671281.3.579.2.593 1969 Unknown [id number] 2.16.84 0.1.390149.3.579.2.593 1969 Unknown [id number] 2.16.84 0.1.749960.3.579.2.593 1969 Unknown [id number] 2.16.84 0.1.713311.3.579.2.593 1969 Unknown [id number] 2.16.84 0.1.808498.3.579.2.593 1969 Unknown [id number] 2.16.84 0.1.246764.3.579.2.593 1969 Unknown [id number] 2.16.84 0.1.761363.3.579.2.593 1969 Unknown [id number] 2.16.84 0.1.110909.3.579.2.593 1969 Unknown [id number] 2.16.84 0.1.559516.3.579.2.593 1969 Unknown [id number] 2.16.84 0.1.795771.3.579.2.593 1969 Unknown [id number] 2.16.84 0.1.995391.3.579.2.593 1969 Unknown [id number] 2.16.84 0.1.081341.3.579.2.593 1969 Unknown [id number] 2.16.84 0.1.867805.3.579.2.593 1969 Unknown [id number] 2.16.84 0.1.580291.3.579.2.593 1969 Unknown [id number] 2.16.84 0.1.868470.3.579.2.593 1969 Unknown [id number] 2.16.84 0.1.128024.3.579.2.593 1969 Unknown [id number] 2.16.84 0.1.314675.3.579.2.593 1969 Unknown [id number] 2.16.84 0.1.044142.3.579.2.593 1969 Unknown [id number] 2.16.84 0.1.594243.3.579.2.593 1969 Unknown [id number] 2.16.84 0.1.296490.3.579.2.593 1969 Unknown [id number] 2.16.84 0.1.173247.3.579.2.593 1969 Unknown [id number] 2.16.84 0.1.223312.3.579.2.593 1969 Unknown [id number] 2.16.84 0.1.533625.3.579.2.593 1969 Unknown [id number] 2.16.84 0.1.368412.3.579.2.593 1969 Unknown [id number] 2.16.84 0.1.720846.3.579.2.593 1969 Unknown [id number] 2.16.84 0.1.907915.3.579.2.593 1969 Unknown [id number] 2.16.84 0.1.567459.3.579.2.593 1969 Unknown [id number] 2.16.84 0.1.589839.3.579.2.593 1969 Unknown [id number] 2.16.84 0.1.668940.3.579.2.593 1969 Unknown [id number] 2.16.84 0.1.244488.3.579.2.593 1969 Unknown [id number] 2.16.84 0.1.135133.3.579.2.593 1969 Unknown [id number] 2.16.84 0.1.225621.3.579.2.593 1969 Unknown [id number] 2.16.84 0.1.342094.3.579.2.593 1969 Unknown [id number] 2.16.84 0.1.958128.3.579.2.593 1969 Unknown [id number] 2.16.84 0.1.495059.3.579.2.593 1969 Unknown [id number] 2.16.84 0.1.460357.3.579.2.593 1969 Unknown [id number] 2.16.84 0.1.878807.3.579.2.593 1969 Unknown [id number] 2.16.84 0.1.369158.3.579.2.593 1969 Unknown [id number] 2.16.84 0.1.719706.3.579.2.593 1969 Unknown [id number] 2.16.84 0.1.510110.3.579.2.593 1969 Unknown [id number] 2.16.84 0.1.021205.3.579.2.593 1969 Unknown [id number] 2.16.84 0.1.005121.3.579.2.593 1969 Unknown [id number] 2.16.84 0.1.501102.3.579.2.593 1969 Unknown [id number] 2.16.84 0.1.859423.3.579.2.593 1969 Unknown [id number] 2.16.84 0.1.014133.3.579.2.593 1969 Unknown [id number] 2.16.8 40.1.959285.3.579.2.727 1969 Unknown [id number] 2.16.8 40.1.302199.3.579.2.727 1969 Unknown [id number] 2.16.8 40.1.221655.3.579.2.727 1969 Unknown [id number] 2.16.84 0.1.487626.3.579.2.1259 1969 Unknown [id number] 2.16.84 0.1.587146.3.579.2.1259 1969 Unknown [id number] 2.16.84 0.1.389108.3.579.2.1259 1959 Medicaid [id number] Unknown [id number] 2.16.8 40.1.050543.3.579.2.531 Social History Date Type Detail Facility Assertion Unknown if ever smoked [facility]hwmf[facility] Work Phone: Start: 11-18-2021 End: 01-10-2024 Tobacco smoking status Never smoked tobacco (finding) [facility] Tobacco smoking status Never [facility] [place] Sex Assigned At Male [facility] Start: 1970 Sex Assigned At Male F [facility] Medical Equipment Procedure Code Equipment Code Equipment Origin al Text Equipment Identifier Dates OneTouch Delica Lancets Fine Quantity: 100 Refills: 0 DO Start : 13-Dec-2018 Active Start: 12-13-2018 OneTouch Ultra B lue In Vitro Strip Quantity: 25 Refills: 0 DO Start : 13-Dec-2018 Active Start: 12-13-2018 Ashely Quintanilla Lancets Fine Quantity: 100 Refills: 0 Start : 13-Dec-2018 Active Start: 12-13-2018 OneTouch Ultra B lue In Vitro Strip Quantity: 25 Refills: 0 Start : 13-Dec-2018 Active Start: 12-13-2018 Functional Status Date Assessment Result Facility 02-28-2024 Functional Status N/A [facility] 01-10-2024 Functional Status N/A [facility] 12-30-2021 Functional Status N/A [facility] NEGATED: Highlighted row Functional performance Functional status health issues are not documented Disease [id number] idman Voice Work Phone: Mental Status Date Assessment Result Facility NEGATED: Highlighted row Cognitive function [Interpretation] Cognitive status health issues are not documented Disease [facility] Work Phone: Clinical Notes 12-02-2021 to 02-28-2024 Note Date & Type Note Facility 02-28-2024 Hospital Discharge instructions Patient Education 02/28/2024 11:11:04 Erectile Dysfunction Erectile Dysfunction Erectile dysfunction (ED) is the inability to get or keep an erection in order to have sexual intercourse. ED is considered a symptom of an underlying disorder and is not considered a disease. ED may include: Inability to get an erection. Lack of enough hardness of the erection to allow penetration. Loss of erection before sex is finished. What are the causes? This condition may be caused by: Physical causes, such as: ?Artery problems. This may include heart disease, high blood pressure, atherosclerosis, and diabetes. ?Hormonal problems, such as low testosterone. ?Obesity. ?Nerve problems. This may include back or pelvic injuries, multiple sclerosis, Parkinson's disease, spinal cord injury, and stroke. Certain medicines, such as: ?Pain relievers. ?Antidepressants. ?Blood pressure medicines and water pills (diuretics). ?Cancer medicines. ?Antihistamines. ?Muscle relaxants. Lifestyle factors, such as: ?Use of drugs such as marijuana, cocaine, or opioids. ?Excessive use of alcohol. ?Smoking. ?Lack of physical activity or exercise. Psychological causes, such as: ?Anxiety or stress. ?Sadness or depression. ?Exhaustion. ?Fear about sexual performance. ?Guilt. What are the signs or symptoms? Symptoms of this condition include: Inability to get an erection. Lack of enough hardness of the erection to allow penetration. Loss of the erection before sex is finished. Sometimes having normal erections, but with frequent unsatisfactory episodes. Low sexual satisfaction in either partner due to erection problems. A curved penis occurring with erection. The curve may cause pain, or the penis may be too curved to allow for intercourse. Never having nighttime or morning erections. How is this diagnosed? This condition is often diagnosed by: Performing a physical exam to find other diseases or specific problems with the penis. Asking you detailed questions about the problem. Doing tests, such as: ?Blood tests to check for diabetes mellitus or high cholesterol, or to measure hormone levels. ?Other tests to check for underlying health conditions. ?An ultrasound exam to check for scarring. ?A test to check blood flow to the penis. Doing a sleep study at home to measure nighttime erections. How is this treated? This condition may be treated by: Medicines, such as: ?Medicine taken by mouth to help you achieve an erection (oral medicine). ?Hormone replacement therapy to replace low testosterone levels. ?Medicine that is injected into the penis. Your health care provider may instruct you how to give yourself these injections at home. ?Medicine that is delivered with a short applicator tube. The tube is inserted into the opening at the tip of the penis, which is the opening of the urethra. A tiny pellet of medicine is put in the urethra. The pellet dissolves and enhances erectile function. This is also called MUSE (medicated urethral system for erections) therapy. Vacuum pump. This is a pump with [...] become straight for sexual intercourse. Blood vessel surgery to improve blood flow to the penis. During this procedure, a blood vessel from a different part of the body is placed into the penis to allow blood to flow around (bypass) damaged or blocked blood vessels. Lifestyle changes, such as exercising more, losing weight, and quitting smoking. Follow these instructions at home: Medicines Take ixwo-dhi-qihfopn and prescription medicines only as told by your health care provider. Do not increase the dosage without first discussing it with your health care provider. If you are using self-injections, do injections as directed by your health care provider. Make sure you avoid any veins that are on the surface of the penis. After giving an injection, apply pressure to the injection site for 5 minutes. Talk to your health care provider about how to prevent headaches while taking ED medicines. These medicines may cause a sudden headache due to the increase in blood flow in your body. General instructions Exercise regularly, as directed by your health care provider. Work with your health care provider to lose weight, if needed. Do not use any products that contain nicotine or tobacco. These products include cigarettes, chewing tobacco, and vaping devices, such as e-cigarettes. If you need help quitting, ask your health care provider. Before using a vacuum pump, read the instructions that come with the pump and discuss any questions with your health care provider. Keep all follow-up visits. This is important. Contact a health care provider if: You feel nauseous. You are vomiting. You get sudden headaches while taking ED medicines. You have any concerns about your sexual health. Get help right away if: You are [...] of your penis. You have redness spreading at your groin or lower abdomen. You are unable to urinate. You experience chest pain or a rapid heartbeat (palpitations) after taking oral medicines. These symptoms may represent a serious problem that is an emergency. Do not wait to see if the symptoms will go away. Get medical help right away. Call your local emergency services (911 in the [place] Do not drive yourself to the hospital. Summary Erectile dysfunction (ED) is the inability to get or keep an erection during sexual intercourse. This condition is diagnosed based on a physical exam, your symptoms, and tests to determine the cause. Treatment varies depending on the cause and may include medicines, hormone therapy, surgery, or a vacuum pump. You may need follow-up visits [...] have with your health care provider. Document Revised: 09/24/2021 Document Reviewed: 09/24/2021 [employer] Patient Education 2022 [employer]. Follow Up Care 01/10/2024 13:08:45 With:ROBERT VELA, Jacky Joyner, URL Address: [facility] [address] , [place] [address]- [phone] When: Unknown [facility] 02-28-2024 Note Patient Education Urology Erectile Dysfunction Erectile dysfunction (ED) is the inability to get or keep an erection in order to have sexual intercourse. ED is considered a symptom of an underlying disorder and is not considered a disease. ED may include: ? Inability to get an erection. ? Lack of enough hardness of the erection to allow penetration. ? Loss of erection before sex is finished. What are the causes? This condition may be caused by: ? Physical causes, such as: ? Artery problems. This may include heart disease, high blood pressure, atherosclerosis, and diabetes. ? Hormonal problems, such as low testosterone. ? Obesity. ? Nerve problems. This may include back or pelvic injuries, multiple sclerosis, Parkinson's disease, spinal cord injury, and stroke. ? Certain medicines, such as: ? Pain relievers. ? Antidepressants. ? Blood pressure medicines and water pills (diuretics). ? Cancer medicines. ? Antihistamines. ? Muscle relaxants. ? Lifestyle factors, such as: ? Use of drugs such as marijuana, cocaine, or opioids. ? Excessive use of alcohol. ? Smoking. ? Lack of physical activity or exercise. ? Psychological causes, such as: ? Anxiety or stress. ? Sadness or depression. ? Exhaustion. ? Fear about sexual performance. ? Guilt. What are the signs or symptoms? Symptoms of this condition include: ? Inability to get an erection. ? Lack of enough hardness of the erection to allow penetration. ? Loss of the erection before sex is finished. ? Sometimes having normal erections, but with frequent unsatisfactory episodes. ? Low sexual satisfaction in either partner due to erection problems. ? A curved penis occurring with erection. The curve may cause pain, or the penis may be too curved to allow for intercourse. ? Never having nighttime or morning erections. How is this diagnosed? This condition is often diagnosed by: ? Performing a physical exam to find other diseases or specific problems with the penis. ? Asking you detailed questions about the problem. ? Doing tests, such as: ? Blood tests to check for diabetes mellitus or high cholesterol, or to measure hormone levels. ? Other tests to check for underlying health conditions. ? An ultrasound exam to check for scarring. ? A test to check blood flow to the penis. ? Doing a sleep study at home to measure nighttime erections. How is this treated? This condition may be treated by: ? Medicines, such as: ? Medicine taken by mouth to help you achieve an erection (oral medicine). ? Hormone replacement therapy to replace low testosterone levels. ? Medicine that is injected into the penis. Your health care provider may instruct you how to give yourself these injections at home. ? Medicine that is delivered with a short applicator tube. The tube is inserted into the opening at the tip of the penis, which is the opening of the urethra. A tiny pellet of medicine is put in the urethra. The pellet dissolves and enhances erectile function. This is also called MUSE (medicated urethral system for erections) therapy. ? Vacuum pump. This is a pump [...] straight for sexual intercourse. ? Blood vessel surgery to improve blood flow to the penis. During this procedure, a blood vessel from a different part of the body is placed into the penis to allow blood to flow around (bypass) damaged or blocked blood vessels. ? Lifestyle changes, such as exercising more, losing weight, and quitting smoking. Follow these instructions at home: Medicines ? Take xats-pfk-hgbrpug and prescription medicines only as told by your health care provider. Do not increase the dosage without first discussing it with your health care provider. ? If you are using self-injections, do injections as directed by your health care provider. Make sure you avoid any veins that are on the surface of the penis. After giving an injection, apply pressure to the injection site for 5 minutes. ? Talk to your health care provider about how to prevent headaches while taking ED medicines. These medicines may cause a sudden headache due to the increase in blood flow in your body. General instructions ? Exercise regularly, as directed by your health care provider. Work with your health care provider to lose weight, if needed. ? Do not use any products that contain nicotine or tobacco. These (more content not included)... [facility] 01-10-2024 Hospital Discharge instructions Patient Education 01/10/2024 13:06:01 Erectile Dysfunction Erectile Dysfunction Erectile dysfunction (ED) is the inability to get or keep an erection in order to have sexual intercourse. ED is considered a symptom of an underlying disorder and is not considered a disease. ED may include: Inability to get an erection. Lack of enough hardness of the erection to allow penetration. Loss of erection before sex is finished. What are the causes? This condition may be caused by: Physical causes, such as: ?Artery problems. This may include heart disease, high blood pressure, atherosclerosis, and diabetes. ?Hormonal problems, such as low testosterone. ?Obesity. ?Nerve problems. This may include back or pelvic injuries, multiple sclerosis, Parkinson's disease, spinal cord injury, and stroke. Certain medicines, such as: ?Pain relievers. ?Antidepressants. ?Blood pressure medicines and water pills (diuretics). ?Cancer medicines. ?Antihistamines. ?Muscle relaxants. Lifestyle factors, such as: ?Use of drugs such as marijuana, cocaine, or opioids. ?Excessive use of alcohol. ?Smoking. ?Lack of physical activity or exercise. Psychological causes, such as: ?Anxiety or stress. ?Sadness or depression. ?Exhaustion. ?Fear about sexual performance. ?Guilt. What are the signs or symptoms? Symptoms of this condition include: Inability to get an erection. Lack of enough hardness of the erection to allow penetration. Loss of the erection before sex is finished. Sometimes having normal erections, but with frequent unsatisfactory episodes. Low sexual satisfaction in either partner due to erection problems. A curved penis occurring with erection. The curve may cause pain, or the penis may be too curved to allow for intercourse. Never having nighttime or morning erections. How is this diagnosed? This condition is often diagnosed by: Performing a physical exam to find other diseases or specific problems with the penis. Asking you detailed questions about the problem. Doing tests, such as: ?Blood tests to check for diabetes mellitus or high cholesterol, or to measure hormone levels. ?Other tests to check for underlying health conditions. ?An ultrasound exam to check for scarring. ?A test to check blood flow to the penis. Doing a sleep study at home to measure nighttime erections. How is this treated? This condition may be treated by: Medicines, such as: ?Medicine taken by mouth to help you achieve an erection (oral medicine). ?Hormone replacement therapy to replace low testosterone levels. ?Medicine that is injected into the penis. Your health care provider may instruct you how to give yourself these injections at home. ?Medicine that is delivered with a short applicator tube. The tube is inserted into the opening at the tip of the penis, which is the opening of the urethra. A tiny pellet of medicine is put in the urethra. The pellet dissolves and enhances erectile function. This is also called MUSE (medicated urethral system for erections) therapy. Vacuum pump. This is a pump with [...] become straight for sexual intercourse. Blood vessel surgery to improve blood flow to the penis. During this procedure, a blood vessel from a different part of the body is placed into the penis to allow blood to flow around (bypass) damaged or blocked blood vessels. Lifestyle changes, such as exercising more, losing weight, and quitting smoking. Follow these instructions at home: Medicines Take jcqc-dka-hlwedhq and prescription medicines only as told by your health care provider. Do not increase the dosage without first discussing it with your health care provider. If you are using self-injections, do injections as directed by your health care provider. Make sure you avoid any veins that are on the surface of the penis. After giving an injection, apply pressure to the injection site for 5 minutes. Talk to your health care provider about how to prevent headaches while taking ED medicines. These medicines may cause a sudden headache due to the increase in blood flow in your body. General instructions Exercise regularly, as directed by your health care provider. Work with your health care provider to lose weight, if needed. Do not use any products that contain nicotine or tobacco. These products include cigarettes, chewing tobacco, and vaping devices, such as e-cigarettes. If you need help quitting, ask your health care provider. Before using a vacuum pump, read the instructions that come with the pump and discuss any questions with your health care provider. Keep all follow-up visits. This is important. Contact a health care provider if: You feel nauseous. You are vomiting. You get sudden headaches while taking ED medicines. You have any concerns about your sexual health. Get help right away if: You are [...] of your penis. You have redness spreading at your groin or lower abdomen. You are unable to urinate. You experience chest pain or a rapid heartbeat (palpitations) after taking oral medicines. These symptoms may represent a serious problem that is an emergency. Do not wait to see if the symptoms will go away. Get medical help right away. Call your local emergency services (911 in the [place] Do not drive yourself to the hospital. Summary Erectile dysfunction (ED) is the inability to get or keep an erection during sexual intercourse. This condition is diagnosed based on a physical exam, your symptoms, and tests to determine the cause. Treatment varies depending on the cause and may include medicines, hormone therapy, surgery, or a vacuum pump. You may need follow-up visits [...] have with your health care provider. Document Revised: 09/24/2021 Document Reviewed: 09/24/2021 [employer] Patient Education 2022 [employer]. 01/10/2024 12:53:41 Benign Prostatic Hyperplasia Benign Prostatic Hyperplasia Benign prostatic hyperplasia (BPH) is an enlarged prostate gland that is caused by the normal aging process. The prostate may get bigger as a man gets older. The condition is not caused by cancer. The prostate is a walnut-sized gland that is involved in the production of semen. It is located in front of the rectum and below the bladder. The bladder stores urine. The urethra carries stored urine out of the body. An enlarged prostate can press on the urethra. This can make it harder to pass urine. The buildup of urine in the bladder can cause infection. Back pressure and infection may progress to bladder damage and kidney (renal) failure. What are the causes? This condition is part of the normal aging process. However, not all men develop problems from this condition. If the prostate enlarges away from the urethra, urine flow will not be blocked. If it enlarges toward the urethra and compresses it, there will be problems passing urine. What increases the risk? This condition is more likely to develop in men older than 50 years. What are the signs or symptoms? Symptoms of this condition include: Getting up often during the night to urinate. Needing to urinate frequently during the day. Difficulty starting urine flow. Decrease in size and strength of your urine stream. Leaking (dribbling) after urinating. Inability to pass urine. This needs immediate treatment. Inability to completely empty your bladder. Pain when you pass urine. This is more common if there is also an infection. Urinary tract infection (UTI). How is this diagnosed? This condition is diagnosed based on your medical history, a physical exam, and your symptoms. Tests will also be done, such as: A post-void bladder scan. This measures any amount of urine that may remain in your bladder after you finish urinating. A digital rectal exam. In a rectal exam, your health care provider checks your prostate by putting a lubricated, gloved finger into your rectum to feel the back of your prostate gland. This exam detects the size of your gland and any abnormal lumps or growths. An exam of your urine (urinalysis). A prostate specific antigen (PSA) screening. This is a blood test used to screen for prostate cancer. An ultrasound. This test uses sound waves to electronically produce a picture of your prostate gland. Your health care provider may refer you to a specialist in kidney and prostate diseases (urologist). How is this treated? Once symptoms begin, your health care provider will monitor your condition (active surveillance or watchful waiting). Treatment for this condition will depend on the severity of your condition. Treatment may include: Observation and yearly exams. This may be the only treatment needed if your condition and symptoms are mild. Medicines to relieve your symptoms, including: ?Medicines to shrink the prostate. ?Medicines to relax the muscle of the prostate. Surgery in severe cases. Surgery may include: ?Prostatectomy. In this procedure, the prostate tissue is removed completely through an open incision or with a laparoscope or robotics. ?Transurethral resection of the prostate (TURP). In this procedure, a tool is inserted through the opening at the tip of the penis (urethra). It is used to cut away tissue of the inner core of the prostate. The pieces are removed through the same opening of the penis. This removes the blockage. ?Transurethral incision (TUIP). In this procedure, small cuts are made in the prostate. This lessens the prostate's pressure on the urethra. ?Transurethral microwave thermotherapy (TUMT). This procedure uses microwaves to create heat. The heat destroys and removes a small amount of prostate tissue. ?Transurethral needle ablation (TUNA). This procedure uses radio frequencies to destroy and remove a small amount of prostate tissue. ?Interstitial laser coagulation (ILC). This procedure uses a laser to destroy and remove a small amount of prostate tissue. ?Transurethral electrovaporization (TUVP). This procedure uses electrodes to destroy and remove a small amount of prostate tissue. ?Prostatic urethral lift. This procedure inserts an implant to push the lobes of the prostate away from the urethra. Follow these instructions at home: Take qemv-xhr-cvrorwd and prescription medicines only as told by your health care provider. Monitor your symptoms for any changes. Contact your health care provider with any changes. Avoid drinking large amounts of liquid before going to bed or out in public. Avoid or reduce how much caffeine or alcohol you drink. Give yourself time when you urinate. Keep all follow-up visits. This is important. Contact a health care provider if: You have unexplained back pain. Your symptoms do not get better with treatment. You develop side effects from the medicine you are taking. Your urine becomes very dark or has a bad smell. Your lower abdomen becomes distended and you have trouble passing urine. Get help right away if: You have a fever or chills. You suddenly cannot urinate. You feel light-headed or very dizzy, or you faint. There are large amounts of blood or clots in your urine. Your urinary problems become hard to manage. You develop moderate to severe low back or flank pain. The flank is the side of your body between the ribs and the hip. These symptoms may be an emergency. Get help right away. Call 911. Do not wait to see if the symptoms will go away. Do not drive yourself to the hospital. Summary Benign prostatic hyperplasia (BPH) is an enlarged prostate that is caused by the normal aging process. It is not caused by cancer. An enlarged prostate can press on the urethra. This can make it hard to pass urine. This condition is more likely to develop in men older than 50 years. Get help right away if you suddenly cannot urinate. This information is not intended to replace advice given to you by your health care provider. Make sure you discuss any questions you have with your health care provider. Document Revised: 01/14/2022 Document Reviewed: 01/14/2022 [employer] Patient Education 2022 [employer]. Follow Up Care 11/04/2023 10:00:04 With:ROBERT VELA, Jacky Joyner, URL Address: [facility] [address] [place] [phone] When: Unknown [facility] [place] 01-10-2024 Note Urology Office/Clini c Note Chief Complaint Referral *Urinary Issues HPI Staff Evaluation requested by Dr Jesus Lucas due to bladder outlet obstruction. Last seen in our office by DLS 12/30/21. DX; ED, Nocturia Unable to provide urine specimen. ADY 10/29/23 *Normal Kidney/Bladder. PVR 67ml Last PSA 10/29/23- 1.01 Difficulty getting stream started for the past couple of months. Slow stream. Denies pain/burning and blood in urine. History of Present Illness Tests reviewed: reviewed referral records, ADY, PSA I have reviewed the previous health record information and history for this patient from Dr. Becker and external providers. I have reviewed and verified the staff HPI to be accurate for this encounter. Review of Systems PHQ Score Initial Depression Screen Score: 0 SCORE ROS - Provider Constitutional: denies weight loss, [...] HPI. Physical Exam Vitals & Measurements HR: 84(Peripheral) RR: 16 BP: 167/94 HT: 71 in HT: 180 cm WT: 102.5 kg WT: 225.5 lb BMI: 31.64 General Appearance: alert, no distress, well nourished, well developed male. Prostate: normal prostate, estimated weight 30 gms, no hard nodule observed. Assessment/Plan Prior Dr. Becker pt re-referred by Dr. Jesus Lucas for ALEGRIA. 1. BPH with obstruction/lower urinary tract symptoms (N40.1: Benign prostatic hyperplasia with lower urinary tract symptoms) Renal/bladder US 10/29/23 [facility] - No renal/bladder stones or masses. PVR was 67 mL. No sample provided for UA today. Reports hesitancy over the past few months. Weak, start/stop stream. Does not feel he empties, will avoid shortly after already doing so. Denies hx of infections or gross hematuria. Educated pt on pathophysiology of BPH. Discussed different treatment options for bladder outlet obstruction including oral medications, operative interventions such as TURP, versus less invasive options such as Rezum, depending on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
[2024-03-28 11:00] LABS: Basophils Absolute Auto 0.1 10^3/uL (0.0-0.1); Eosinophils Absolute Auto 0.4 10^3/uL (0.0-0.7); Eosinophils Percent Auto 5.9 % (0.9-7.0); Hematocrit 37.8 % (42.0-54.0); Hemoglobin 12.6 g/dL (14.0-18.0); Immature Granulocytes Abs Auto 0.04 10^3/uL (0.00-0.03); Immature Granulocytes Pct Auto 0.6 % (0.0-0.5); Lymphocytes Absolute Auto 1.4 10^3/uL (1.2-3.8); Lymphocytes Percent Auto 20.5 % (20.5-60.0); Mean Corpuscular HGB Conc 33.3 g/dL (29.9-35.2); Mean Corpuscular Hemoglobin 29.9 pg (25.9-34.0); Mean Corpuscular Volume 89.6 fL (80.0-94.0); Mean Platelet Volume 10.4 fL (9.5-13.5); Monocytes Absolute Auto 0.5 10^3/uL (0.3-0.8); Monocytes Percent Auto 6.9 % (1.7-12.0); Neutrophils Absolute Auto 4.5 10^3/uL (1.4-6.5); Neutrophils Percent Auto 65.1 % (43.0-75.0); Platelet Count 240 10^3/uL (150-450); Red Blood Count 4.22 10^6/uL (4.70-6.10); Red Cell Distribution Width 13.3 % (11.0-15.0); White Blood Count 6.9 10^3/uL (4.0-11.0)
[2024-03-28 11:36] LABS: Anion Gap 14.3; Calcium 8.5 mg/dL (8.5-10.1); Carbon Dioxide 25.9 mmol/L (21.0-32.0); Chloride 100 mmol/L (98-107); Estimated GFR (African America 57 (>=60); Estimated GFR (Non-African Ame 47 (>=60); Glucose 188 mg/dL (74-106); Potassium 4.2 mmol/L (3.5-5.1); Sodium 136 mmol/L (136-145); Thyroid Stimulating Hormone 1.055 uIU/mL (0.358-3.740)
== END 2024-03-28 10:36 | disposition home or self-care (01) ==
LOC: LAB 10:39
PROVIDERS: PCP Family Medicine; Visit Provider Family Medicine
DX: E03.9 Hypothyroidism, unspecified (principal); R53.83 Other fatigue; I50.30 Unspecified diastolic (congestive) heart failure
CPT/HCPCS: 36415; 80048; 84436; 84443; 84481; 85025